=== PATIENT | female | born 1955 | race Caucasian/White ===

== ENCOUNTER 2016-07-09 17:07 | Emergency (ER) | payer OTHER ==
[~2016-07-09] VITALS: Ht 154.9 cm; Wt 93.0 kg
[2016-07-09 17:31] VITALS: TEMP 36.5
[2016-07-09] MEDS ORDERED: MECLIZINE HCL 25 MG TAB PO STA (17:37)
[2016-07-09] MEDS ORDERED: ONDANSETRON INJ 2 MG/ML 2 ML VIAL IV STA (17:37)
[2016-07-09 17:46] VITALS: O2SAT 97; Ht 154.9 cm; Wt 93.0 kg
--- NOTE | 2016-07-09 17:50 | EMERGENCY ROOM VISIT NOTE ---
History Report prepared by Lisa: Freddy Lyle Under the Supervision of: Dr. Miguel Wyman D.O. First contact with patient: 17:34 Chief Complaint: STROKE SYMPTOMS Stated Complaint: DIZZY, NAUSEA History of Present Illness The patient is a 61 year old female who presents to the Emergency Room with complaints of dizziness that began 3 hours ago. She states that she was standing when the dizziness began, so she sat down on her cough. After a while, she got up slowly and began to walk. She then began to lean/move to the right secondary to her dizziness. She felt very nauseated and also like she was going to fall over and could not speak to her correctly at that time. She currently has a headache. She denies any ringing in her ears. She has had incidences of vertigo in the past, but none like this. She has not seen her PCP for this issue. She was diagnosed with Leukemia 7 months ago, but she is not receiving any treatment. She is just having blood work done at this time. Source of History: patient Onset: 3 hours ago Position: other (global) Symptom Intensity: moderate Quality: other (dizziness) Timing: intermittent Associated Symptoms: + headache, + nausea Note: She denies any ringing in her ears. Review of Systems See HPI for pertinent positives & negatives. A total of 10 systems reviewed and were otherwise negative. Past Medical & Surgical Medical Problems: (1) No Known Active Medical Problems Family History Omitted secondary to age. Social History Smoking Status: Never Smoker Smokeless Tobacco Use: No Alcohol Use: occasionally Drug Use: none Marital Status: Housing Status: lives with significant other Occupation Status: retired Current/Historical Medications Scheduled Meclizine Hcl (Meclizine Hcl), 1 TAB PO TID Ondasetron Odt (Zofran Odt), 4 MG SL Q6H Allergies Coded Allergies: Tetraglycine (Unverified Adverse Reaction, Severe, TURN BLACK AND BLUE IN JOINT,LOOSE USE OF LEGS, 07/09/16) Physical Exam Vital Signs Date Time Temp Pulse Resp B/P Pulse Ox O2 Delivery O2 Flow Rate FiO2 07/09/16 19:08 87 18 130/69 98 Room Air 07/09/16 18:40 86 20 178/79 95 Room Air 82 148/88 90 132/73 07/09/16 18:17 87 18 119/74 97 Room Air 07/09/16 17:46 97 Room Air 07/09/16 17:39 96 Room Air 07/09/16 17:31 36.5 87 20 155/73 98 Room Air 07/09/16 17:31 84 Physical Exam GENERAL: Patient is awake, alert, and in no acute distress. Patient is uncomfortable and showing mild signs of anxiety. EYES: The conjunctivae are clear. The pupils are round and reactive. EARS, NOSE, MOUTH AND THROAT: The nose is without any evidence of any deformity. Mucous membranes are moist tongue is midline. TM's clear bilaterally. NECK: The neck is nontender and supple. RESPIRATORY: Normal respiratory effort is noted there is no evidence of wheezing rhonchi or rales CARDIOVASCULAR: Regular rate and rhythm noted there no murmurs rubs or gallops normal S1 normal S2 GASTROINTESTINAL: The abdomen is soft. Bowel sounds are present in all quadrants. Abdomen is nontender MUSCULOSKELETAL/EXTREMITIES: There is no evidence of gross deformity full range of motion is noted in the hips and shoulders SKIN: There is no obvious evidence of any rash. There are no petechiae, pallor or cyanosis noted. NEUROLOGIC: Patient is awake alert and oriented x3 strength is symmetric patellar reflexes are 2+ bilaterally. No nystagmus appreciated. Medical Decision & Procedures ER Provider Diagnostic Interpretation: Radiology results are stated below per my review and radiologist interpretation: CT OF THE HEAD WITHOUT CONTRAST CLINICAL HISTORY: Weakness. Dizzy. Nausea. COMPARISON STUDY: No previous studies for comparison. CT DOSE: 537.48 mGy.cm TECHNIQUE: Helical axial images of the head were obtained without IV contrast. Automated exposure control was utilized for the study. FINDINGS: No acute intracranial hemorrhage, midline shift or mass effect is present. Brain volume is normal. Ventricular system is normal. Basilar cisterns are patent. There are no extra-axial collections. Rojas-white differentiation is maintained. There are no findings to suggest acute dural sinus thrombosis or acute territorial infarct. Visualized portions of the sinuses and mastoid air cells are clear. There are no calvarial abnormalities. IMPRESSION: No acute intracranial findings. Electronically signed by: Ruben Delgado M.D. 07/09/2016 6:28 PM Dictated Date/Time: 07/09/2016 6:26 PM CHEST ONE VIEW PORTABLE CLINICAL HISTORY: Altered mental status. Weakness. Dizziness. Nausea. COMPARISON STUDY: No previous studies for comparison. FINDINGS: Lung volumes are normal. Lungs are clear. There is no pneumothorax or pleural effusion. Cardiac size is normal. Mediastinal contours are normal. There is no evidence of pulmonary edema. IMPRESSION: No acute cardiopulmonary findings. Electronically signed by: Ruben Delgado M.D. 07/09/2016 6:03 PM Dictated Date/Time: 07/09/2016 6:02 PM Laboratory Results 07/09/16 16:15 Red Blood Count 5.22, Mean Corpuscular Volume 86.4, Mean Corpuscular Hemoglobin 29.9, Mean Corpuscular Hemoglobin Concent 34.6, Mean Platelet Volume 11.1 07/09/16 16:15 Test 07/09/16 16:15 07/09/16 18:23 White Blood Count 16.98 K/uL (4.8-10.8) Red Blood Count 5.22 M/uL (4.2-5.4) Hemoglobin 15.6 g/dL (12.0-16.0) Hematocrit 45.1 % (37-47) Mean Corpuscular Volume 86.4 fL (80-100) Mean Corpuscular Hemoglobin 29.9 pg (25-34) Mean Corpuscular Hemoglobin Concent 34.6 g/dl (32-36) Platelet Count 264 K/uL (130-400) Mean Platelet Volume 11.1 fL (7.4-10.4) RDW Standard Deviation 48.6 fL (36.4-46.3) RDW Coefficient of Variation 15.2 % (11.5-14.5) Neutrophils % (Manual) 21.8 % Lymphocytes % (Manual) 73.7 % Monocytes % (Manual) 3.6 % Eosinophils % (Manual) 0.9 % Neutrophils # (Manual) 3.70 K/uL (1.4-6.5) Total Absolute Neutrophils 3.70 K/uL (1.4-6.5) Lymphocytes # (Manual) 12.51 K/uL (1.2-3.4) Total Absolute Lymphocytes 12.51 K/uL (1.2-3.4) Monocytes # (Manual) 0.61 K/uL (0.11-0.59) Eosinophils # (Manual) 0.15 K/uL (0-0.5) Smudge Cells PRESENT Prothrombin Time 10.7 SECONDS (9.0-12.0) Prothromb Time International Ratio 1.0 (0.9-1.1) Activated Partial Thromboplast Time 27.5 SECONDS (21.0-31.0) Partial Thromboplastin Ratio 1.1 Anion Gap 7.0 mmol/L (3-11) Est Creatinine Clear Calc Drug Dose 83.1 ml/min Estimated GFR () 103.3 Estimated GFR (Non- 89.1 BUN/Creatinine Ratio 28.5 (10-20) Calcium Level 9.2 mg/dl (8.5-10.1) Magnesium Level 2.6 mg/dl (1.8-2.4) Total Bilirubin 0.6 mg/dl (0.2-1) Direct Bilirubin 0.1 mg/dl (0-0.2) Aspartate Amino Transf (AST/SGOT) 24 U/L (15-37) Alanine Aminotransferase (ALT/SGPT) 22 U/L (12-78) Alkaline Phosphatase 80 U/L (45-117) Troponin I < 0.015 ng/ml (0-0.045) Total Protein 8.0 gm/dl (6.4-8.2) Albumin 4.3 gm/dl (3.4-5.0) Thyroid Stimulating Hormone (TSH) 1.050 uIu/ml (0.300-4.500) Chemistry Specimen Hemolysis Urine Color YELLOW Urine Appearance CLEAR (CLEAR) Urine pH 7.0 (4.5-7.5) Urine Specific [place] 1.006 (1.000-1.030) Urine Protein NEG (NEG) Urine Glucose (UA) NEG (NEG) Urine Ketones NEG (NEG) Urine Occult Blood NEG (NEG) Urine Nitrite NEG (NEG) Urine Bilirubin NEG (NEG) Urine Urobilinogen NEG (NEG) Urine Leukocyte Esterase TRACE (NEG) Urine WBC (Auto) 1-5 /hpf (0-5) Urine RBC (Auto) 0-4 /hpf (0-4) Urine Hyaline Casts (Auto) 1-5 /lpf (0-5) Urine Epithelial Cells (Auto) 10-20 /lpf (0-5) Urine Bacteria (Auto) NEG (NEG) Laboratory results per my review. Medications Administered Medications (Trade) Dose Ordered Sig/Manjinder Route Start Time Stop Time Status Last Admin Dose Admin Ondansetron HCl (Zofran Inj) 4 mg NOW STAT IV 07/09/16 17:37 4/15/17 17:38 DC 07/09/16 17:44 4 MG Meclizine HCl (Antivert Tab) 25 mg NOW STAT PO 07/09/16 17:37 07/09/16 17:38 DC 07/09/16 17:44 25 MG ECG Indication: nausea Rate (beats per minute): 81 Rhythm: normal sinus Findings: no ectopy, other (No acute ST segment abnormalities) Comparison ECG Date: no prior available ED Course 1733: The patient was evaluated in room C12. A complete history and physical examination were performed. 1736: Ordered Antivert Tab 25 mg PO, Zofran Inj 4 mg IV 1919: Upon reevaluation, the patient is resting. I discussed the results and treatment plan with her. She verbalized agreement of the treatment plan. She was discharged home. Medical Decision Differential diagnosis: Etiologies such as benign positional vertigo, dehydration, hypovolemia, anemia, tumor, infection, hypoglycemia, electrolyte abnormalities, cardiac sources, intracerebral event, toxicologic, neurologic, as well as others were entertained. Additional history is obtained from the patient's family member. Nursing notes reviewed. The patient is a 61-year-old female who presented to the emergency department for evaluation of vertigo. The patient did not have any focal neurologic deficit. She was treated with meclizine and Zofran in the emergency department. On subsequent reevaluation she was feeling much better. I discussed the patient' s laboratory and radiographic studies with her. Follow-up with her. She was encouraged to rest and avoid any strenuous activity. She was also encouraged to continue all medications as prescribed and call her family doctor in the morning. She was also encouraged to discuss the possibility that she may require further studies or possibly a referral to an ear nose and throat physician to further evaluate the cause of her symptoms. Otherwise she was encouraged to return the emergency apartment immediately if symptoms change worsen or the need arises. Impression Primary Impression: Vertigo Scribe Attestation The scribe's documentation has been prepared under my direction and personally reviewed by me in its entirety. I confirm that the note above accurately reflects all work, treatment, procedures, and medical decision making performed by me. Departure Information Dispostion Home / Self-Care Prescriptions Meclizine Hcl (MECLIZINE HCL) 25 Mg Tab 1 TAB PO TID for Dizziness or Vertigo for 30 Days, #30 TAB Prov: Miguel Wyman, DO 07/09/16 Ondasetron Odt (ZOFRAN ODT) 4 Mg Tab 4 MG SL Q6H for Nausea, #15 TAB Prov: Miguel Wyman, DO 07/09/16 Referrals No Doctor, Assigned Forms HOME CARE DOCUMENTATION FORM, IMPORTANT VISIT INFORMATION Patient Instructions ED Vertigo Unspecified, My [facility] Additional Instructions Rest and continue all medications as prescribed. Avoid any strenuous activity. Avoid driving until your symptoms are feeling better. Discussed the possibility with your family Dr. ni you may require further studies such as an MRI the brain or a referral to an ear nose and throat physician to further evaluate the cause of your vertigo. Return to the emergency department immediately symptoms change worsen or the need arises.
[2016-07-09 18:04] LABS: ALT/SGPT 22 U/L (12-78); AST/SGOT 24 U/L (15-37); BLOOD UREA NITROGEN 21 mg/dl (7-18); BUN/CREATININE RATIO 28.5 (10-20); CALCIUM 9.2 mg/dl (8.5-10.1); CARBON DIOXIDE 30 mmol/L (21-32); CHLORIDE 103 mmol/L (98-107); CREATININE 0.72 mg/dl (0.60-1.20); GLUCOSE 80 mg/dl (70-99); MAGNESIUM 2.6 mg/dl (1.8-2.4); PARTIAL THROMBOPLASTIN RATIO 1.1; PROTHROMBIN TIME (PATIENT) 10.7 SECONDS (9.0-12.0); SODIUM 140 mmol/L (136-145)
--- NOTE | 2016-07-09 18:05 | DIAGNOSTIC IMAGING REPORT ---
CHEST ONE VIEW PORTABLE CLINICAL HISTORY: Altered mental status. Weakness. Dizziness. Nausea. COMPARISON STUDY: No previous studies for comparison. FINDINGS: Lung volumes are normal. Lungs are clear. There is no pneumothorax or pleural effusion. Cardiac size is normal. Mediastinal contours are normal. There is no evidence of pulmonary edema. IMPRESSION: No acute cardiopulmonary findings. Electronically signed by: Ruben Delgado M.D. 07/09/2016 6:03 PM Dictated Date/Time: 07/09/2016 6:02 PM
[2016-07-09 18:10] LABS: ALKALINE PHOSPHATASE 80 U/L (45-117)
[2016-07-09 18:30] LABS: EOSINOPHIL % 0.9 %; HEMATOCRIT 45.1 % (37-47); LYMPH ABS # 12.51 K/uL (1.2-3.4); LYMPHOCYTE % 73.7 %; MEAN CELL VOLUME 86.4 fL (80-100); MEAN CORPUSCULAR HEMOGLOBIN 29.9 pg (25-34); MEAN CORPUSCULAR HGB CONC 34.6 g/dl (32-36); MEAN PLATELET VOLUME 11.1 fL (7.4-10.4); NEUTROPHILS % 21.8 %; PLATELET COUNT 264 K/uL (130-400); RED BLOOD COUNT 5.22 M/uL (4.2-5.4); SMUDGE CELLS PRESENT; WHITE BLOOD COUNT 16.98 K/uL (4.8-10.8)
--- NOTE | 2016-07-09 18:30 | DIAGNOSTIC IMAGING REPORT ---
CT OF THE HEAD WITHOUT CONTRAST CLINICAL HISTORY: Weakness. Dizzy. Nausea. COMPARISON STUDY: No previous studies for comparison. CT DOSE: 537.48 mGy.cm TECHNIQUE: Helical axial images of the head were obtained without IV contrast. Automated exposure control was utilized for the study. FINDINGS: No acute intracranial hemorrhage, midline shift or mass effect is present. Brain volume is normal. Ventricular system is normal. Basilar cisterns are patent. There are no extra-axial collections. Rojas-white differentiation is maintained. There are no findings to suggest acute dural sinus thrombosis or acute territorial infarct. Visualized portions of the sinuses and mastoid air cells are clear. There are no calvarial abnormalities. IMPRESSION: No acute intracranial findings. Electronically signed by: Ruben Delgado M.D. 07/09/2016 6:28 PM Dictated Date/Time: 07/09/2016 6:26 PM
[2016-07-09 18:31] LABS: COMPLETE YES
[2016-07-09 19:00] LABS: URINE APPEARANCE CLEAR (CLEAR); URINE BILIRUBIN NEG (NEG); URINE COLOR YELLOW; URINE NITRITE NEG (NEG); URINE SPECIFIC GRAVITY 1.006 (1.000-1.030); UROBILINOGEN NEG (NEG)
[2016-07-09 19:01] LABS: MANUAL MICROSCOPIC REQUIRED? NO; REVIEW REQ? NO
[2016-07-09 19:08] VITALS: BP 130/69; PULSE 87; O2SAT 98
[2016-07-09] MEDS ORDERED: ONDA4TAB10 SL (19:08)
[2016-07-09] MEDS ORDERED: MECL1TAB42 PO (19:08)
== END 2016-07-09 19:28 | disposition home or self-care (01) ==
LOC: EDBD 17:07 → C.EDC 17:08
DX: R42 Dizziness and giddiness (principal); R11.0 Nausea; R51 Headache; C95.90 Leukemia, unspecified not having achieved remission

== ENCOUNTER 2022-09-19 10:26 | Observation (INO) ==
--- NOTE | 2022-09-19 11:07 | Emergency Department Note ---
Impression & Plan Vertigo, Neck pain ED Provider Note CHIEF COMPLAINT: Vertigo HISTORY OF PRESENT ILLNESS: This 67-year-old female patient presents to the emergency department via ambulance for evaluation of nausea, vomiting, and dizziness which began this morning at about 8 AM. The patient states she was on the couch napping when she went to stand up. She notes at this time, the "world was spinning". The patient does have a history of similar symptoms in 2018, and she took 1 dose of the meclizine she has at home and there was no improvement in her symptoms. The symptoms seem to be worse when she moves and improves with closing her eyes and resting. The patient was not administered any medication by EMS while in route to the emergency department. Over the past few days, pt. eating/drinking normally. 2 weeks ago, pt. had a chest and sinus cold with cough. No medicines, symptoms resolved on their own. Pt. also c/o headache, primarily on the right side of the head. Pt. uncertain if she had the headache in 2018. States this episode is worse. Headache began after vomiting. Pt. c/o persistent nausea. No CP or SOB. She did not take her morning medications today. Patient denies any trauma or head injury. REVIEW OF SYSTEMS: A 10 system review of systems was performed with positives and pertinent negatives listed in the history of present illness. All other systems were reviewed and are negative. ALLERGIES: Tetracycline PHYSICAL EXAM: VITALS: Vitals are noted on the nurse's note and reviewed by myself. Vital signs stable. GENERAL: This is a 67-year-old female, in no acute distress, nondiaphoretic, well-developed well-nourished. SKIN: The skin was without rashes, erythema, edema, or bruising. There is no tenting of the skin. Capillary refill less than 2 seconds. HEAD: Normocephalic atraumatic. EARS: External auditory canals clear, tympanic membranes pearly rojas without erythema or effusion bilaterally. No hemotympanum. Negative hernandez sign EYES: Pupils equal round and reactive to light and accommodation. Conjunctivae without injection, sclerae without icterus. Horizontal nystagmus noted. NOSE: Patent, turbinates without inflammation or discharge. No sinus ten derness. MOUTH: Mucous membranes moist. Tonsils are not enlarged. Pharynx without erythema or exudate. Uvula midline. Airway patent. Tongue does not deviate. NECK: Supple without nuchal rigidity. No lymphadenopathy. No JVD. HEART: Regular rate and rhythm without murmurs gallops or rubs. LUNGS: Clear to auscultation bilaterally without wheezes, rales or rhonchi. No retractions or accessory muscle use. ABDOMEN: Positive bowel sounds x 4. Soft, nontender, without masses or organomegaly. Arango sign negative. No guarding or rebound tenderness. MUSCULOSKELETAL: No muscle atrophy, erythema, or edema noted. Full range of motion without joint tenderness in all extremities. No tenderness to palpation. Normal gait. Strength 5/5 throughout. NEURO: Patient was alert and oriented to person place and time. Normal sensation to light and sharp touch. Deep tendon reflexes 2+ throughout. No focal neurological deficits. EKG, per my interpretation: Normal sinus rhythm with a ventricular rate of [address] elevation or depression. No T wave inversion. when compared to EKG from 09/29/2019, ST no longer elevated in the inferior leads An order was placed for continuous annealer. The monitor showed a normal sinus rhythm at a ventricular rate of 94 bpm, per my interpretation. EMERGENCY DEPARTMENT COURSE: The patient was seen and evaluated as above. IV access obtained, labs drawn. Patient was medicated with IV fluids, acetaminophen, Zofran, p.o. meclizine. Labs reviewed. No anemia, thrombocytopenia. Patient does have a leukocytosis of almost 18,000. Renal, he patic function and electrolytes without significant abnormality. INR normal. Patient was reassessed. She is starting to feel better. She states she feels less dizzy and her headache is improving. Ambulatory trial attempted. The patient was unable to ambulate without experiencing significant vertigo. She was having difficulty ambulating without a maximal assist. Patient was medicated with IV Valium. I do feel that she would benefit from inpatient care given her persistent dizziness and inability to ambulate appropriately. The patient was agreeable. She will be admitted to the [facility] service. I discussed case with Dr. Munoz. Please see hospitalist dictation regarding ongoing management care of this patient. I did discuss case with my attending physician. Differential diagnosis includes benign positional vertigo, dehydration, hypovolemia, anemia, tumor, infection, hypoglycemia, electrolyte abnormalities, cardiac sources, intracerebral event, toxicologic, neurologic, as well as other pathologies. I attest that I have personally reviewed the patient's current medication list. Blood Pressure Screening: Patient was found to have a slightly elevated blood pressure due to circumstances. I do not believe that the patient requires hypertension monitoring. The chart was completed utilizing [employer] Speech voice recognition software. Grammatical errors, random word insertions, pronoun errors, and incomplete sentences are an occasional consequence of this system due to software limitations, ambient noise, and hardware issues. Any formal questions or con cerns about the content, text, or information contained within the body of this dictation should be directly addressed to the provider for clarification. Past Med/Surg History Medical History (Updated 09/19/22 @ 19:37 by Teri Pablo PA-C) Chronic back pain Diabetes mellitus, type 2 Diet controlled - glucose well controlled Fibromyalgia Stable- chronic pain- generalized pain- no current flares GERD (gastroesophageal reflux disease) Well controlled and stable Hyperlipidemia Hypertension Leukemia CLL- under observation- gets checked every 6 months at [facility] in [place] > currently in remission Sleep apnea no longer using cpap> too much congestion and kept waking patient up Surgical History History of colonoscopy History of esophagogastroduodenoscopy (EGD) History of lithotripsy History of partial hysterectomy Family History Grandmother (Paternal) Colon cancer Father Diabetes Sister Diabetes Brother Diabetes Social History Smoking Status: Never smoker Second Hand Exposure: No; Do You Dip or Chew Tobacco: No; Tobacco Cessation Education Requested by Patient: No Hx Alcohol Use: Yes Alcohol type: beer and wine Hx Substance Use: No Preferred Language: Romanian Communication Ability: Effective 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 Beliefs That Will Affect Care: Yazidi Yazidi Beliefs: Zoroastrian Current Living Situation: Significant Other Other Information That Helps Us Care for You: No Feels Safe at Home: Yes Safety Concerns: Feels Safe At This Time Assistive Devices: None Allergies Allergies Allergy/AdvReac Type Severity Reaction Status Date / Time tetracycline AdvReac BLACK & Verified 11/18/19 05:38 BLUE IN JOINTS, LOST USE OF LEGS Home Meds Home Medications Medication Instructions Recorded Confirmed budesonide-formoterol HFA 160 2 puff inhalation BID PRN 09/29/19 09/19/22 mcg-4.5 mcg/actuation aerosol Shortness Of Breath Or Wheezing inhaler (Symbicort) cholecalciferol (vitamin D3) 25 25 mcg PO QAM 09/29/19 09/19/22 mcg (1,000 unit) tablet (Vitamin D3) lisinopril 10 1 tab PO QAM 09/29/19 09/19/22 mg-hydrochlorothiazide 12.5 mg tablet (Zestoretic) omeprazole 20 mg capsule,delayed 20 mg PO QAM 09/29/19 09/19/22 release oxybutynin chloride 10 mg 10 mg PO QAM 09/29/19 09/19/22 tablet,extended release 24 hr piroxicam 10 mg capsule (Feldene) 10 mg PO PM 09/29/19 09/19/22 red yeast rice 600 mg tablet 600 mg PO QAM 09/29/19 09/19/22 turmeric 400 mg capsule 400 mg PO QAM 09/29/19 09/19/22 diclofenac sodium 50 mg 50 mg PO BID 09/19/22 09/19/22 tablet,delayed release duloxetine 30 mg capsule,delayed 30 mg PO DAILY 09/19/22 09/19/22 release duloxetine 60 mg capsule,delayed 60 mg PO DAILY 09/19/22 09/19/22 release pravastatin 80 mg tablet 80 mg PO DAILY 09/19/22 09/19/22 pregabalin 150 mg capsule 150 mg PO BID 09/19/22 09/19/22 triamcinolone acetonide 0.1 % 1 applic topical BID PRN Other 09/19/22 09/19/22 topical cream Previous Rx's Medication Instructions Recorded oxycodone-acetaminophen 5 mg-325 1 tab PO Q4H PRN pain #5 tabs 11/17/20 mg tablet (Percocet) Results & Data (ED) Vital Signs Vital Signs - 24 hr 09/19/22 10:45 09/19/22 11:26 09/19/22 11:44 Temperature 36.5 C Temperature Source Temporal Artery Scan Pulse Rate 101 H 94 H Pulse Rate [Apical] 90 Pulse Rhythm Pulse Strength [Apical] Respiratory Rate 18 22 Respiratory Effort / Characteristics Non-Labored Spontaneous Non-Labored Spontaneous Respiratory Depth Normal Normal Respiratory Pattern Blood Pressure 159/84 H Blood Pressure [Right Arm] 142/73 H Blood Pressure Mean 109 Blood Pressure Mean [Right Arm] 96 Blood Pressure Position Sitting Blood Pressure Position [Right Arm] Pulse Oximetry 95 90 Oxygen Delivery Method Room Air Room Air Sepsis Recent Fever Within 48 Hours No Sepsis New/Unexplained Change in Mental Status N/A Sepsis Action Taken by Nursing No Action Required 09/19/22 12:14 09/19/22 12:16 09/19/22 13:23 Temperature Temperature Source Pulse Rate 90 Pulse Rate [Apical] 87 73 Pulse Rhythm Regular Pulse Strength [Apical] Normal Respiratory Rate 18 18 21 Respiratory Effort / Characteristics Non-Labored Spontaneous Non-Labored Spontaneous Respiratory Depth Normal Normal Respiratory Pattern Regular Blood Pressure Blood Pressure [Right Arm] 153/79 H 152/78 H Blood Pressure Mean Blood Pressure Mean [Right Arm] 103 102 Blood Pressure Position Blood Pressure Position [Right Arm] Lying Lying Pulse Oximetry 95 94 95 Oxygen Delivery Method Room Air Room Air Room Air Sepsis Recent Fever Within 48 Hours Sepsis New/Unexplained Change in Mental Status Sepsis Action Taken by Nursing 09/19/22 14:47 09/19/22 15:35 Temperature Temperature Source Pulse Rate 84 Pulse Rate [Apical] 89 Pulse Rhythm Pulse Strength [Apical] Normal Respiratory Rate 22 Respiratory Effort / Characteristics Non-Labored Spontaneous Respiratory Depth Normal Respiratory Pattern Regular Blood Pressure Blood Pressure [Right Arm] 142/78 H Blood Pressure Mean Blood Pressure Mean [Right Arm] 99 Blood Pressure Position Blood Pressure Position [Right Arm] Lying Pulse Oximetry 95 Oxygen Delivery Method Room Air Sepsis Recent Fever Within 48 Hours Sepsis New/Unexplained Change in Mental Status Sepsis Action Taken by Nursing Laboratory Data 09/19/22 11:30 09/19/22 11:30 Lab Results 09/19/22 09/19/22 09/19/22 Range/Units 11:30 11:30 11:30 WBC 17.92 H (4.8-10.8) K/ul RBC 5.06 (4.20-5.40) M/uL Hgb 13.5 (12.0-16.0) g/dl Hct 41.4 (37.0-47.0) % MCV 81.8 (80.0-100.0) fL MCH 26.7 (25.0-34.0) pg MCHC 32.6 (32.0-36.0) g/dL RDW Std Deviation 49.5 H (36.4-46.3) fL RDW Coeff of Maynor 16.8 H (11.5-14.5) % Plt Count 189 (130-400) K/uL MPV 11.4 (9.4-12.4) fL Immature Gran % (Auto) 0.2 % Neut % (Auto) 27.9 % Lymph % (Auto) 68.9 % Porter % (Auto) 1.9 % Eos % (Auto) 0.8 % Baso % (Auto) 0.3 % Neut # (Auto) 5.00 (1.40-6.50) K/uL Lymph # (Auto) 12.34 H (1.2-3.4) K/uL Porter # (Auto) 0.34 (0.11-0.59) K/uL Eos # (Auto) 0.14 (0-0.50) K/uL Baso # (Auto) 0.06 (0-0.2) K/uL Immature Gran # (Auto) 0.04 (0.01-0.20) K/uL Smudge Cells Present PT 11.4 (9.0-12.0) Seconds INR 1.0 (0.9-1.1) APTT 22.3 (21.0-31.0) Seconds PTT Ratio 0.8 Sodium 137 (136-145) mmol/L Potassium 3.9 (3.5-5.1) mmol/L Chloride 104 (98-107) mmol/L Carbon Dioxide 25 (21-32) mmol/L Anion Gap 8 (3-11) BUN 16 (6-23) mg/dl Creatinine 0.67 (0.6-1.2) mg/dl Est Cr Clr Drug Dosing 80.7 ml/min Est GFR ( Amer) 103.9 ml/min Est GFR (Non-Af Amer) 89.7 ml/min BUN/Creatinine Ratio 23.9 H (10-20) Glucose 178 H (70-99(Fasting)) mg/dl Calcium 9.2 (8.6-10.3) mg/dl Magnesium 2.2 (1.7-2.4) mg/dl Total Bilirubin 0.8 (0.2-1.0) mg/dl AST 17 (13-39) U/L ALT 14 (7-52) U/L Alkaline Phosphatase 65 (34-104) U/L Troponin I High Sens 3.3 (0-14) pg/ml C-Reactive Protein 0.65 H (0-0.5) mg/dl Total Protein 7.3 (6.0-8.3) gm/dl Albumin 4.4 (3.4-5.0) gm/dl Globulin 2.9 (2.5-4.0) gm/dl Albumin/Globulin Ratio 1.5 (0.9-2) SARS-CoV-2, RNA, NAAT (NEGATIVE) 09/19/22 Range/Units 14:37 WBC (4.8-10.8) K/ul RBC (4.20-5.40) M/uL Hgb (12.0-16.0) g/dl Hct (37.0-47.0) % MCV (80.0-100.0) fL MCH (25.0-34.0) pg MCHC (32.0-36.0) g/dL RDW Std Deviation (36.4-46.3) fL RDW Coeff of Maynor (11.5-14.5) % Plt Count (130-400) K/uL MPV (9.4-12.4) fL Immature Gran % (Auto) % Neut % (Auto) % Lymph % (Auto) % Porter % (Auto) % Eos % (Auto) % Baso % (Auto) % Neut # (Auto) (1.40-6.50) K/uL Lymph # (Auto) (1.2-3.4) K/uL Porter # (Auto) (0.11-0.59) K/uL Eos # (Auto) (0-0.50) K/uL Baso # (Auto) (0-0.2) K/uL Immature Gran # (Auto) (0.01-0.20) K/uL Smudge Cells PT (9.0-12.0) Seconds INR (0.9-1.1) APTT (21.0-31.0) Seconds PTT Ratio Sodium (136-145) mmol/L Potassium (3.5-5.1) mmol/L Chloride (98-107) mmol/L Carbon Dioxide (21-32) mmol/L Anion Gap (3-11) BUN (6-23) mg/dl Creatinine (0.6-1.2) mg/dl Est Cr Clr Drug Dosing ml/min Est GFR ( Amer) ml/min Est GFR (Non-Af Amer) ml/min BUN/Creatinine Ratio (10-20) Glucose (70-99(Fasting)) mg/dl Calcium (8.6-10.3) mg/dl Magnesium (1.7-2.4) mg/dl Total Bilirubin (0.2-1.0) mg/dl AST (13-39) U/L ALT (7-52) U/L Alkaline Phosphatase (34-104) U/L Troponin I High Sens (0-14) pg/ml C-Reactive Protein (0-0.5) mg/dl Total Protein (6.0-8.3) gm/dl Albumin (3.4-5.0) gm/dl Globulin (2.5-4.0) gm/dl Albumin/Globulin Ratio (0.9-2) SARS-CoV-2, RNA, NAAT NEGATIVE (NEGATIVE) Administered Medications Discontinued Medications Diazepam (Diazepam 5 Mg/Ml Inj 10ml Vial) 2 mg IV NOW STA Stop: 09/19/22 14:34 Last Admin: 09/19/22 14:43 Dose: 2 mg Documented By: ZACHERY Sodium Chloride (Nss 1000ml) 1,000 mls @ 999 mls/hr IV .Q1H1M LEONILA Stop: 09/19/22 12:30 Last Infusion: 09/19/22 13:23 Dose: 0 mls/hr Documented By: Admin: 09/19/22 11:39 Dose: 999 mls/hr Documented By: ASMUEL Acetaminophen (Ofirmev) 1,000 mg in 100 mls @ 400 mls/hr IV NOW STA Stop: 09/19/22 11:59 Last Infusion: 09/19/22 12:34 Dose: 0 mls/hr Documented By: Admin: 09/19/22 12:09 Dose: 400 mls/hr Documented By: ZACHERY Ioversol (Optiray 320 100ml) 96 ml IV ONCE ONE Stop: 09/19/22 16:03 Last Admin: 09/19/22 16:03 Dose: 96 ml Documented By: COLIN Meclizine HCl (Meclizine Hcl 25 Mg Tab) 25 mg PO NOW STA Stop: 09/19/22 11:22 Last Admin: 09/19/22 11:39 Dose: 25 mg Documented By: SAMUEL Ondansetron HCl (Ondansetron Inj 2 Mg/Ml 2 Ml Vial) 4 mg IV NOW STA Stop: 09/19/22 11:22 Last Admin: 09/19/22 11:39 Dose: 4 mg Documented By: SAMUEL Ondansetron HCl (Ondansetron Inj 2 Mg/Ml 2 Ml Vial) Confirm Administered Dose 4 mg .ROUTE .STK-MED ONE Stop: 09/19/22 16:14 Last Admin: 09/19/22 16:16 Dose: 4 mg Documented By: GISSELLE Imaging Data Radiologist's Impression: Chest X-Ray 09/19/22 11:22 XR chest 1V portable CLINICAL HISTORY: Dizziness. COMPARISON STUDY: Chest radiograph September 29, 2019. FINDINGS: Patient is mildly rotated. Lung volumes are normal. No consolidation to suggest pneumonia. There is no pneumothorax or pleural effusion. Cardiac size is normal. Mediastinal contours are normal. There is no evidence for pulmonary edema. IMPRESSION: No acute cardiopulmonary findings. ACT 112: Negative or not required by law. Electronically signed by: Ruben Delgado M.D. 09/19/2022 12:[address] 09/19/22 11:45 CT SCAN OF THE BRAIN WITHOUT IV CONTRAST CLINICAL HISTORY: Headache. Vertigo. COMPARISON STUDY: CT of the brain dated 11/23/2017. TECHNIQUE: Unenhanced axial CT scan of the brain is performed from the vertex to the skull base. A dose lowering technique was utilized adhering to the principles of ALARA. CT DOSE: 580.53 mGy.cm FINDINGS: Brain parenchyma: There is age-related involutional change noting mild subcortical and periventricular microangiopathic disease. There is no hemor rhage, mass effect, or evidence of acute territorial ischemia by CT criteria. Rojas-white matter differentiation is preserved. No extra-axial fluid collection is seen. Ventricles, sulci, cisterns: Prominent secondary to involutional change. Intracranial vasculature: There is atherosclerotic calcification of the cavernous carotid arteries. Calvarium: Unremarkable. Sinuses and mastoids: The visualized paranasal sinuses are clear. The mastoid air cells are well pneumatized. Orbits: The bony orbits are grossly intact. IMPRESSION: There is no hemorrhage, mass effect, or evidence of acute territorial ischemia by CT criteria. ACT 112: Negative or not required by law. Electronically signed by: Brendan Mcpherson M.D. 09/19/2022 1:[address] 09/19/22 15:[address] WITH CONTRAST CLINICAL HISTORY: Spinal/paraspinal tenderness/swelling, hx CLL COMPARISON STUDY: CTA of the neck November 23, 2017. TECHNIQUE: Axial images of the cervical spine were obtained following intravenous injection of 96 cc of Optiray 320 IV. Sagittal and coronal reconstructions were viewed. Automated exposure control was utilized for the study. A dose lowering technique was utilized adhering to the principles of ALARA. FINDINGS: There is slight reversal of the cervical lordosis. This is similar to prior CTA. There is no cervical spine fracture. No suspicious lesions are identified by CT. Moderate multilevel disc space narrowing, osteophytosis and facet arthrosis within the cervical spine is noted. The central canal and neural foramen are suboptimally assessed given CT technique. No prevertebral edema. Visualized portions of the lung apices are unremarkable. No pathologically enlarged cervical lymph nodes are identified within visualized portions of the neck. This exam is mildly compromised by motion artifact. IMPRESSION: 1. No acute cervical spine fracture or subluxation. Exam mildly compromised by motion artifact. 2. Moderate multilevel degenerative disc disease and facet arthrosis within the cervical spine. Suboptimal evaluation of the central canal and neural foramen given CT technique. ACT 112: Negative or not required by law. Electronically signed by: Ruben Delgado M.D. 09/19/2022 4:26 PM Discharge Plan Visit Data Chief Complaint: Illness ED Provider: [facility] ED Midlevel Provider: Teri Pablo Discharge Problem: Vertigo, Neck pain Patient Disposition: Admitted As Inpatient Discharge Instructions Interventions: ED Discharge Assessment Last Done: 09/19/22 18:04
[2022-09-19] MEDS ORDERED: ONDANSETRON INJ 2 MG/ML 2 ML VIAL IV STA (11:21)
[2022-09-19] MEDS ORDERED: MECLIZINE HCL 25 MG TAB PO STA (11:21)
[2022-09-19] MEDS ORDERED: SODIUM CHLORIDE 0.9% 1000ML 1,000 ML IV SCH (11:30)
[2022-09-19] MEDS ORDERED: ACETAMINOPHEN 1,000 MG/100 ML VIAL IV STA (11:45)
[2022-09-19 12:04] LABS: Hematocrit (blood only) 41.4 % (37.0-47.0); Hemoglobin 13.5 g/dl (12.0-16.0); Mean Corpuscular Hemoglobin 26.7 pg (25.0-34.0); Mean Corpuscular Hgb Conc 32.6 g/dL (32.0-36.0); Mean Corpuscular Volume 81.8 fL (80.0-100.0); Mean Platelet Volume 11.4 fL (9.4-12.4); Platelet Count 189 K/uL (130-400); RDW Coefficient of Variation 16.8 % (11.5-14.5); RDW Standard Deviation 49.5 fL (36.4-46.3); Red Blood Count 5.06 M/uL (4.20-5.40); White Blood Count 17.92 K/ul (4.8-10.8)
--- NOTE | 2022-09-19 12:16 | XRay Report ---
XR chest 1V portable CLINICAL HISTORY: Dizziness. COMPARISON STUDY: Chest radiograph September 29, 2019. FINDINGS: Patient is mildly rotated. Lung volumes are normal. No consolidation to suggest pneumonia. There is no pneumothorax or pleural effusion. Cardiac size is normal. Mediastinal contours are normal . There is no evidence for pulmonary edema. IMPRESSION: No acute cardiopulmonary findings. ACT 112: Negative or not required by law. Electronically signed by: Ruben Delgado M.D. 09/19/2022 12:15 PM
[2022-09-19 12:20] LABS: Albumin Globulin Ratio 1.5 (0.9-2); Albumin Level 4.4 gm/dl (3.4-5.0); BUN Creatinine Ratio 23.9 (10-20); Bilirubin,Total 0.8 mg/dl (0.2-1.0); Calcium 9.2 mg/dl (8.6-10.3); Creatinine Clr Calc Pharmacy 80.7 ml/min; Est GFR (African American) 103.9 ml/min; Est GFR (Non-African American) 89.7 ml/min; Globulin 2.9 gm/dl (2.5-4.0); Potassium 3.9 mmol/L (3.5-5.1); Total Protein 7.3 gm/dl (6.0-8.3)
[2022-09-19 12:26] LABS: Troponin I High Sensitivity 3.3 pg/ml (0-14)
[2022-09-19 12:29] LABS: Partial Thromboplastin Ratio 0.8; Partial Thromboplastin Time 22.3 Seconds (21.0-31.0); Prothrombin Time 11.4 Seconds (9.0-12.0)
[2022-09-19 12:51] LABS: Basophils # (auto) 0.06 K/uL (0-0.2); Basophils % (auto) 0.3 %; Eosinophils # (auto) 0.14 K/uL (0-0.50); Eosinophils % (auto) 0.8 %; Immature Granulocytes # (auto) 0.04 K/uL (0.01-0.20); Immature Granulocytes % (auto) 0.2 %; Lymphocytes # (auto) 12.34 K/uL (1.2-3.4); Lymphocytes % (auto) 68.9 %; Monocytes # (auto) 0.34 K/uL (0.11-0.59); Monocytes % (auto) 1.9 %; Neutrophils % (auto) 27.9 %; Smudge Cells Present
--- NOTE | 2022-09-19 13:02 | CT Scan Report ---
CT SCAN OF THE BRAIN WITHOUT IV CONTRAST CLINICAL HISTORY: Headache. Vertigo. COMPARISON STUDY: CT of the brain dated 11/23/2017. TECHNIQUE: Unenhanced axial CT scan of the brain is performed from the vertex to the skull base. A do se lowering technique was utilized adhering to the principles of ALARA. CT DOSE: 580.53 mGy.cm FINDINGS: Brain parenchyma: There is age-related involutional change noting mild subcortical and periventricula r microangiopathic disease. There is no hemorrhage, mass effect, or evidence of acute territorial isc hemia by CT criteria. Rojas-white matter differentiation is preserved. No extra-axial fluid collection is seen. Ventricles, sulci, cisterns: Prominent secondary to involutional change. Intracranial vasculature: There is atherosclerotic calcification of the cavernous carotid arteries. Calvarium: Unremarkable. Sinuses and mastoids: The visualized paranasal sinuses are clear. The mastoid air cells are well pneu matized. Orbits: The bony orbits are grossly intact. IMPRESSION: There is no hemorrhage, mass effect, or evidence of acute territorial ischemia by CT melanie sims. ACT 112: Negative or not required by law. Electronically signed by: Brendan Mcpherson M.D. 09/19/2022 1:01 PM
--- NOTE | 2022-09-19 15:11 | History & Physical Report ---
Date of Service September 19, 2022 Assessment & Plan (1) Vertigo: Plan: Severe acute vertigo, suspect BPPV Patient with severe room spinning, vertigo, and horizontal nystagmus on Arnulfo- Hallpike testing. Magaly did not improve symptoms Suspect BPPV given past history of this, and severe symptoms with nystagmus on Hudson-Hallpike Will consult PT/OT to continue Magaly attempt, in the meantime we will continue symptomatic care with meclizine patient did receive diazepam in ER. Zofran as needed Has had a headache and nausea with her room spinning. Denies fever, chills, sweats. Denies weakness. No tinnitus or hearing loss. No other focal neurologic symptoms While she does have a headache and some photosensitivity, she does not have fever/leukocytosis or nuchal rigidity suggestive of meningitis. CRP/Pro-Lg pending - CThead with no acute findings. - CXR: No acute findings Severe neck pain, acute on chronic Patient with right-sided cervical posterior neck swelling, tenderness to palpation, and firmness with pain on both midline and right paraspinal palpation at ~C4-T1 Denies upper extremity weakness/numbness/tingling at time of visit, patient notes that she has had intermittent numbness and tingling down into her right hand in the past She is with a lymphocytic leukocytosis and history of CLL under monitoring without active treatment, no neutrophilic leukocytosis or fevers Has had chiropractic adjustments every Monday Given underlying CLL, spinal and paraspinal tenderness with history of intermittent numbness/tingling, and mild warmth at tender areas over the overlying cervical spine will obtain CT test C-spine with contrast. No neurologic symptoms and no leukocytosis, lower suspicion for discitis/abscess and patient is not able to tolerate an MRI at time of admission due to severe nausea History of CLL, chronic, stable Follows with oncology in [facility] -In remission, cell counts followed as outpatient. Denies prior history of chemo/radiation Has a absolute white cell count of 17.2 with no granulocytosis, lymphocytes at 12.34 No B-cell symptoms on admit CBC daily Fibromyalgia, chronic Continue home medications Does get chiropractic adjustments weekly [employer]. Neck eval as above Can continue piroxicam, will hold diclofenac while on this Hypertension, chronic Continue lisinoprilhydrochlorothiazide DVT prophylaxis: Heparin Diet: Clears, may advance as tolerated Disposition: Medical telemetry due to multiple Zofran doses and borderline prolonged QT. Magnesium level pending CODE STATUS: Full code (2) Diabetes mellitus, type 2: (3) GERD (gastroesophageal reflux disease): (4) Leukemia: (5) Hyperlipidemia: (6) Neck pain: History of Present Illness Primary Care Provider: Sudeep Read PA-C Valentina Landaverde is a 67-year-old female with a history of fibromyalgia, GERD, hyperlipidemia, hypertension, AYAAN, and CLL with a surgical history of hysterectomy with entire uterus removed and left ovary/right ovary remaining who presented to the emergency department by ambulance for nausea, vomiting, and dizziness which began at 8 AM. Patient reports that she was sleeping on the couch and stood up and immediately had severe room spinning/vertigo and was brought to the ER by EMS due to the severity of her symptoms. Had a similar episode several years ago which did not improve with meclizine. She has had cold-like symptoms 2 weeks ago, but which had resolved after several days. EKG on admission normal sinus rhythm, no ST segment changes, no territorial T wave changes, QTc 485, rate 99. On admission she has a leukocytosis of 17, does have a history of CLL last WBC measurements available from 2019 which were 22 at the time. Her current leukocytosis is remains lymphocyte predominant with a normal absolute neutrophil count. She has no sodium, potassium derangement and admitting creatinine is normal at 0.67. BUN/creatinine ratio slightly elevated at 23.9 suggesting volume contraction. BSG 178. No transaminitis. High-sensitivity troponin is normal.BP on ER assessment 152/78, pulse is improved to approximately 89, and is satting normally on room air. And is seen at the bedside. Woke up with vertigo this morning. Similar sx 5 years ago but this episode seems much worse in severity and has not responded to meclizine or Valium. She reports any head movement causes the room to spin and she immediately gets nauseous and has vomited several times, nonbloody/nonbilious. She is not able to function or perform activities at home due to her nausea and not being able to walk. She has not had any tinnitus. No hearing change. She reports she does have some right posterior neck tension and tenderness worsened in the last 1-2 days. She denies fever/chills. She did have a cold 2-3 weeks ago which completely resolved with no residual symptoms. She reports that she has had intermittent numbness and tingling in her right hand, none at present and no weakness. She reports she feels very nauseous and her eyes are little sensitive to light. She has no nuchal rigidity and notes that her neck feels a little better bring her chin to her chest. Has had an i ntermittent headache which seems worse when she is nauseous and vomits, none at time of bedside assessment Medical History: Reviewed Medications: Reviewed Surgical History: Reviewed Family history: Reviewed Allergies: Reviewed Social History: No tobacco, rare intermittent alcohol Code Status: Full code Allergies Allergy/AdvReac Type Severity Reaction Status Date / Time tetracycline AdvReac BLACK & Verified 11/18/19 05:38 BLUE IN JOINTS, LOST USE OF LEGS Home Medications Medication Instructions Recorded Confirmed Type budesonide-formoterol HFA 160 2 puff inhalation BID PRN 09/29/19 09/19/22 History mcg-4.5 mcg/actuation aerosol Shortness Of Breath Or Wheezing inhaler (Symbicort) cholecalciferol (vitamin D3) 25 25 mcg PO QAM 09/29/19 09/19/22 History mcg (1,000 unit) tablet (Vitamin D3) lisinopril 10 1 tab PO QAM 09/29/19 09/19/22 History mg-hydrochlorothiazide 12.5 mg tablet (Zestoretic) omeprazole 20 mg capsule,delayed 20 mg PO QAM 09/29/19 09/19/22 History release oxybutynin chloride 10 mg 10 mg PO QAM 09/29/19 09/19/22 History tablet,extended release 24 hr piroxicam 10 mg capsule (Feldene) 10 mg PO PM 09/29/19 09/19/22 History red yeast rice 600 mg tablet 600 mg PO QAM 09/29/19 09/19/22 History turmeric 400 mg capsule 400 mg PO QAM 09/29/19 09/19/22 History oxycodone-acetaminophen 5 mg-325 1 tab PO Q4H PRN pain #5 tabs 11/18/19 09/19/22 Rx mg tablet (Percocet) diclofenac sodium 50 mg 50 mg PO BID 09/19/22 09/19/22 History tablet,delayed release duloxetine 30 mg capsule,delayed 30 mg PO DAILY 09/19/22 09/19/22 History release duloxetine 60 mg capsule,delayed 60 mg PO DAILY 09/19/22 09/19/22 History release pravastatin 80 mg tablet 80 mg PO DAILY 09/19/22 09/19/22 History pregabalin 150 mg capsule 150 mg PO BID 09/19/22 09/19/22 History triamcinolone acetonide 0.1 % 1 applic topical BID PRN Other 09/19/22 09/19/22 History topical cream Past Med/Surg History Medical History (Updated 09/19/22 @ 15:52 by Matteo Munoz MD) Chronic back pain Diabetes mellitus, type 2 Diet controlled - glucose well controlled Fibromyalgia Stable- chronic pain- generalized pain- no current flares GERD (gastroesophageal reflux disease) Well controlled and stable Hyperlipidemia Hypertension Leukemia CLL- under observation- gets checked every 6 months at [facility] in [place] > currently in remission Sleep apnea no longer using cpap> too much congestion and kept waking patient up Surgical History History of colonoscopy History of esophagogastroduodenoscopy (EGD) History of lithotripsy History of partial hysterectomy Family History Grandmother (Paternal) Colon cancer Father Diabetes Sister Diabetes Brother Diabetes Social History Smoking Status: Never smoker Second Hand Exposure: Yes ([employer] SMOKES); Do You Dip or Chew Tobacco: No; Hx Alcohol Use: Yes Alcohol type: beer and wine Hx Substance Use: No Preferred Language: Faroese Communication Ability: Effective Patient Partner Required: No Beliefs That Will Affect Care: None Current Living Situation: Significant Other Feels Safe at Home: Yes Assistive Devices: Glasses Review of Systems Review of Systems: All systems reviewed & are unremarkable except as noted in Subjective Physical Exam Physical Exam: General: Appears ill but nontoxic, nauseous. No acute distress HEENT: Pupils equal and reactive to light. Patient reports she is very nauseous and looking at the light makes her feel more nauseous. Vision and hearing is grossly intact Pulm: CTAB A&P. -wheezes, -rales, -rhonchi. Symmetrical chest rise. No increased work of breathing. No respiratory distress. Cardiac: RRR, -mrg. Radial pulses intact and symmetrical. Abdominal: Nontender, nondistended, soft. BS present. Spine: Spinal and right paraspinal tenderness to palpation at C4-T1, increased muscular tone and slight overlying warmth. No nuchal rigidity. Extremities: Sensation to soft touch intact in hands and feet without asymmetry, burrer marker axle strength and ankle dorsiflexion/plantarflexion 5/5. Neuro: HEENT as noted. Arnulfo-Hallpike left produces horizontal and slight rotary nystagmus and increased nausea. Magaly did not resolve symptoms. Results & Data Results & Data Vital Signs (Past 12 Hours) Vital Signs Temp Pulse Pulse Resp BP BP Pulse Ox 09/19/22 14:47 89 22 142/78 H 95 09/19/22 13:23 73 21 152/78 H 95 09/19/22 12:16 90 18 94 09/19/22 12:14 87 18 153/79 H 95 09/19/22 11:44 90 22 142/73 H 90 09/19/22 11:26 94 H 09/19/22 10:45 36.5 C 101 H 18 159/84 H 95 O2 Del Method 09/19/22 14:47 Room Air 09/19/22 13:23 Room Air 09/19/22 12:16 Room Air 09/19/22 12:14 Room Air 09/19/22 11:44 Room Air 09/19/22 11:26 09/19/22 10:45 Room Air PG Care Time/CCT Total # of Minutes Spent Total Time Spent with Patient: Total time spent is greater than 50% in coordination of care (as documented) at patient's floor/unit and/or counseling patient: Coding Level of Care Code 10682 INT INP/OBS CARE 2/55MIN Diagnoses Vertigo R42 Diabetes mellitus, type 2 E11.9 GERD (gastroesophageal reflux disease) K21.9 Leukemia C95.90 Hyperlipidemia E78.5 Neck pain M54.2
[2022-09-19] MEDS ORDERED: OPTIRAY 320 100ml IV ONE (16:02)
[2022-09-19] MEDS ORDERED: ONDANSETRON INJ 2 MG/ML 2 ML VIAL ONE (16:13)
--- NOTE | 2022-09-19 16:28 | CT Scan Report ---
CERVICAL SPINE CT WITH CONTRAST CLINICAL HISTORY: Spinal/paraspinal tenderness/swelling, hx CLL COMPARISON STUDY: CTA of the neck November 23, 2017. TECHNIQUE: Axial images of the cervical spine were obtained following intravenous injection of 96 cc of Optiray 320 IV. Sagittal and coronal reconstructions were viewed. Automated exposure control was u tilized for the study. A dose lowering technique was utilized adhering to the principles of ALARA. FINDINGS: There is slight reversal of the cervical lordosis. This is similar to prior CTA. There is n o cervical spine fracture. No suspicious lesions are identified by CT. Moderate multilevel disc space narrowing, osteophytosis and facet arthrosis within the cervical spine is noted. The central canal a nd neural foramen are suboptimally assessed given CT technique. No prevertebral edema. Visualized por tions of the lung apices are unremarkable. No pathologically enlarged cervical lymph nodes are identi fied within visualized portions of the neck. This exam is mildly compromised by motion artifact. IMPRESSION: 1. No acute cervical spine fracture or subluxation. Exam mildly compromised by motion artifact. 2. Moderate multilevel degenerative disc disease and facet arthrosis within the cervical spine. Subop timal evaluation of the central canal and neural foramen given CT technique. ACT 112: Negative or not required by law. Electronically signed by: Ruben Delgado M.D. 09/19/2022 4:26 PM
[2022-09-19 17:10] LABS: C Reactive Protein 0.65 mg/dl (0-0.5); Magnesium 2.2 mg/dl (1.7-2.4)
[2022-09-19] MEDS ORDERED: POLYETHYLENE (MIRALAX) 17 GM PACK PO PRN (18:20)
[2022-09-19] MEDS ORDERED: MECLIZINE HCL 25 MG TAB PO PRN ×2 (18:20)
[2022-09-19] MEDS ORDERED: ACETAMINOPHEN 325 MG TAB PO PRN (18:20)
[2022-09-19] MEDS ORDERED: TRIAMCINOLONE ACET 0.1% CR 15 GM TUBE TOP PRN (18:20)
[2022-09-19] MEDS ORDERED: FLUTICASONE/VILANTEROL 200/25MCG 14 PUFFS/INHALER INH PRN (18:58)
[2022-09-19] MEDS: ONDANSETRON INJ 2 MG/ML 2 ML VIAL IV PRN (21:16)
[2022-09-19] MEDS: NSS + 20MEQ KCL 20 MEQ/1,000 ML BAG IV SCH (21:18)
[2022-09-19] MEDS: PREGABALIN 150 MG CAP PO SCH (21:23)
[2022-09-19] MEDS: PIROXICAM 10 MG CAP PO SCH (22:03)
[2022-09-19 22:13] LABS: Appearance Urine Clear (Clear); Bilirubin Urine Negative (Negative); Blood Urine Negative (Negative); Color Urine Yellow; Glucose Urine UA Negative (Negative); Ketones Urine Trace (Negative); Leukocyte Esterase Urine Negative (Negative); Nitrite Urine Negative (Negative); Protein Urine Negative (Negative); Specific Gravity Urine 1.039 (1.000-1.030); Urobilinogen Urine Negative (Negative); pH Urine 6.5 (4.5-7.5)
[2022-09-20] MEDS: NSS + 20MEQ KCL 20 MEQ/1,000 ML BAG IV SCH ×2 (03:58→11:30)
[2022-09-20 07:53] LABS: Hematocrit (blood only) 36.9 % (37.0-47.0); Hemoglobin 11.7 g/dl (12.0-16.0); Mean Corpuscular Hemoglobin 26.7 pg (25.0-34.0); Mean Corpuscular Hgb Conc 31.7 g/dL (32.0-36.0); Mean Corpuscular Volume 84.2 fL (80.0-100.0); Mean Platelet Volume 11.6 fL (9.4-12.4); Nucleated RBC # (auto) 0.02 K/uL (0-0.12); Nucleated RBC % (auto) 0.1 %; Platelet Count 179 K/uL (130-400); RDW Coefficient of Variation 16.6 % (11.5-14.5); RDW Standard Deviation 50.5 fL (36.4-46.3); Red Blood Count 4.38 M/uL (4.20-5.40); White Blood Count 15.47 K/ul (4.8-10.8)
[2022-09-20 08:05] LABS: BUN Creatinine Ratio 21.1 (10-20); Calcium 8.1 mg/dl (8.6-10.3); Creatinine Clr Calc Pharmacy 97.6 ml/min; Est GFR (African American) 109.6 ml/min; Est GFR (Non-African American) 94.6 ml/min; Potassium 3.7 mmol/L (3.5-5.1)
[2022-09-20] MEDS: DULoxetine HCL 60 MG CAP PO SCH (08:16)
[2022-09-20] MEDS: HEPARIN SOD 5,000 UNIT/0.5 ML VIAL SQ SCH ×3 (08:16→20:14)
[2022-09-20] MEDS: DULoxetine HCL 30 MG CAP PO SCH (08:16)
[2022-09-20] MEDS: PANTOprazole 40 MG TAB PO SCH (08:17)
[2022-09-20] MEDS: LISINOPRIL/HCTZ 10/12.5MG TAB PO SCH (08:17)
[2022-09-20] MEDS: PRAVASTATIN SOD 40 MG TAB PO SCH (08:18)
[2022-09-20] MEDS: OXYBUTYNIN CHLORIDE XL 5 MG TABCR PO SCH (08:18)
[2022-09-20] MEDS: PREGABALIN 150 MG CAP PO SCH ×2 (08:21→20:10)
[2022-09-20 08:48] LABS: Basophils # (auto) 0.08 K/uL (0-0.2); Basophils % (auto) 0.5 %; Eosinophils # (auto) 0.24 K/uL (0-0.50); Eosinophils % (auto) 1.6 %; Immature Granulocytes # (auto) 0.02 K/uL (0.01-0.20); Immature Granulocytes % (auto) 0.1 %; Lymphocytes # (auto) 11.77 K/uL (1.2-3.4); Lymphocytes % (auto) 76.1 %; Monocytes # (auto) 0.61 K/uL (0.11-0.59); Monocytes % (auto) 3.9 %; Neutrophils # (auto) 2.75 K/uL (1.40-6.50); Neutrophils % (auto) 17.8 %; Smudge Cells Present
--- NOTE | 2022-09-20 08:52 | Electrocardiogram Report ---
Test Reason : Blood Pressure : / mmHG Vent. Rate : 099 BPM Atrial Rate : 099 BPM P-R Int : 178 ms QRS Dur : 090 ms QT Int : 378 ms P-R-T Axes : 005 006 033 degrees QTc Int : 485 ms Normal sinus rhythm Possible Left atrial enlargement Borderline ECG When compared with ECG of 29-SEP-2019 19:26, Questionable change in QRS axis ST no longer elevated in Inferior leads Confirmed by Hernesto Carbajal ([id number]) on 09/20/2022 8:51:59 AM Referred By: Confirmed By:Hernesto Carbajal
[2022-09-20] MEDS ORDERED: NON-FORMULARY MEDICATION (Red Yeast Rice 600 mg Tablet) PO SCH (09:00)
[2022-09-20] MEDS ORDERED: LORazepam 1 MG TAB PO STA ×2 (09:00→11:26)
[2022-09-20] MEDS ORDERED: Nursing to Pharmacy Communication SCH (11:30)
--- NOTE | 2022-09-20 12:04 | Hospitalist Progress Note ---
Date of Service September 20, 2022 Assessment & Plan (1) Vertigo: Plan: Probable benign positional vertigo. She had this in the past. However, midbrain CVA needs to be ruled out. Admission head CT scan negative. Brain MRI pending. We will schedule meclizine dosing along with several doses of IV Solu- Medrol. Hopefully this will resolve quickly Severe neck pain, acute on chronic Patient with right-sided cervical posterior neck swelling, tenderness to palpation, and firmness with pain on both midline and right paraspinal palpation at ~C4-T1 Denies upper extremity weakness/numbness/tingling at time of visit, patient notes that she has had intermittent numbness and tingling down into her right hand in the past She is with a lymphocytic leukocytosis and history of CLL under monitoring without active treatment, no neutrophilic leukocytosis or fevers Has had chiropractic adjustments every Monday Given underlying CLL, spinal and paraspinal tenderness with history of intermittent numbness/tingling, and mild warmth at tender areas over the overlyi ng cervical spine will obtain CT test C-spine with contrast. No neurologic symptoms and no leukocytosis, lower suspicion for discitis/abscess and patient is not able to tolerate an MRI at time of admission due to severe nausea History of CLL, chronic, stable Follows with oncology in [facility] -In remission, cell counts followed as outpatient. Denies prior history of chemo/radiation Has a absolute white cell count of 17.2 with no granulocytosis, lymphocytes at 12.34 No B-cell symptoms on admit CBC daily Fibromyalgia, chronic Continue home medications Does get chiropractic adjustments weekly [employer]. Neck eval as above Can continue piroxicam, will hold diclofenac while on this Hypertension, chronic Continue lisinoprilhydrochlorothiazide DVT prophylaxis: Heparin Diet: Clears, may advance as tolerated Disposition: Medical telemetry due to multiple Zofran doses and borderline prolonged QT. Magnesium level pending CODE STATUS: Full code (2) Diabetes mellitus, type 2: Plan: ADA diet. Sliding scale coverage as needed. Continue current medication management (3) GERD (gastroesophageal reflux disease): Plan: PPI therapy (4) Leukemia: Plan: History of chronic lymphocytic leukemia. No intervention needed at this time (5) Hyperlipidemia: Plan: Stable. Continue statin therapy (6) Neck pain: Plan: She states she fell at home which aggravated her chronic neck pain. Symptomatic care. Pain control measures Plan Hopeful discharge to home soon. Possibly tomorrow, September 21 Admission and Anticipated Discharge Date Admission Date: September 19, 2022 Subjective Alert and oriented. She still has vertigo symptoms. Meclizine will be scheduled and intravenous steroids administered. Brain MRI scan pending to rule out midbrain CVA which can cause similar symptoms. She states she fell at home which aggravated her chronic neck discomfort. Admission head CT scan negative for bleed. Diet has been advanced and IV fluids taper down. Review of Systems Review of Systems: Constitutional-no fever or chills ENT-no blurred vision, no double vision, no epistaxis, no sore throat Respiratory-no cough, no wheezing, no shortness of breath Cardiac-no palpitations, no chest pain, no syncope GI-no nausea, vomiting, diarrhea, melena, hematochezia -no urinary retention, no urinary incontinence, no dysuria, no hematuria Musculoskeletal-no joint pain, no muscle tenderness Skin-no bruising, no rashes, no pruritus Neuro-vertigo symptoms. No focal weakness Psych-no depression, no anxiety Physical Exam Physical Exam: General-alert and oriented x3, no fevers, no chills HEENT-head atraumatic and normocephalic, pupils equal and reactive to light, extraocular muscles intact. Horizontal nystagmus noted with head turning Neck-no lymphadenopathy or thyromegaly, trachea midline Chest-clear to auscultation percussion. No rales wheezing or rhonchi Cardiac-regular rate and rhythm, normal S1 and S2 Abdomen-normal bowel sounds, nontender, no hepatosplenomegaly Extremities-no cyanosis, clubbing, or edema Neuro-cranial nerves II through XII intact, motor and sensory function within normal limits, strength symmetrical , no focal deficits. Horizontal nystagmus noted with head turning Psych-normal affect, normal mood Results & Data Results & Data Vital Signs (Past 12 Hours) Vital Signs Temp Pulse Pulse Resp BP BP Pulse Ox 09/20/22 10:58 36.6 C 73 16 125/79 92 09/20/22 07:50 56 L 09/20/22 07:46 36.7 C 64 18 112/62 92 09/20/22 02:44 36.6 C 67 16 133/84 93 O2 Del Method 09/20/22 10:58 Room Air 09/20/22 07:50 09/20/22 07:46 Room Air 09/20/22 02:44 Room Air Laboratory Results 09/20/22 07:08 09/20/22 07:08 PG Care Time/CCT Total # of Minutes Spent Total Time Spent with Patient: Total time spent is greater than 50% in coordination of care (as documented) at patient's floor/unit and/or counseling patient: Coding Level of Care Code 94165 SUB INP/OBS CARE 3/50MIN Diagnoses Vertigo R42 Diabetes mellitus, type 2 E11.9 GERD (gastroesophageal reflux disease) K21.9 Leukemia C95.90 Hyperlipidemia E78.5 Neck pain M54.2
[2022-09-20] MEDS: methylPREDNISolone 40 MG in SYRINGE 0 ML IV SCH ×2 (13:10→17:21)
--- NOTE | 2022-09-20 13:11 | Magnetic Resonance Report ---
MRI OF THE BRAIN WITHOUT IV CONTRAST CLINICAL HISTORY: Vertigo COMPARISON STUDY: CT of the brain dated 09/19/2022. TECHNIQUE: MRI of the brain was performed utilizing various T1 and T2-weighted sequences in the axial , sagittal, and coronal planes. IV contrast was not administered for this examination. FINDINGS: Brain parenchyma: There is age-related mucosal change noting minimal microcatheter pathic disease. Th ere is no hemorrhage or mass effect. There is no restricted diffusion to suggest acute ischemia. Rojas -white matter differentiation is preserved. No extra-axial fluid collection is seen. The cerebellar t onsils are normal in configuration. Ventricles, sulci, and cisterns: Prominent secondary to involutional change. Pituitary and sella: Unremarkable. Intracranial vasculature: Normal flow voids are maintained at the skull base. Orbits: The bony orbits are grossly intact. Orbital contents are normal in appearance. Sinuses and mastoids: There is trace mucosal thickening in the left maxillary antrum. The remaining p aranasal sinuses and the mastoid air cells are clear. Calvarium: Unremarkable. Cervical cord: Partially visualized cervical spinal cord is normal in morphology and signal intensity . IMPRESSION: No acute intracranial abnormality. ACT 112: Negative or not required by law. Electronically signed by: Brendan Mcpherson M.D. 09/20/2022 1:09 PM
[2022-09-20] MEDS: MECLIZINE 12.5 MG TAB PO SCH (20:13)
[2022-09-20] MEDS: PIROXICAM 10 MG CAP PO SCH (20:14)
[2022-09-21] MEDS: methylPREDNISolone 40 MG in SYRINGE 0 ML IV SCH ×5 (00:40→23:21)
[2022-09-21] MEDS: NSS + 20MEQ KCL 20 MEQ/1,000 ML BAG IV SCH (03:57)
[2022-09-21] MEDS: oxyCODONE/ACETAMINOPHEN 5mg/325mg TAB PO PRN ×2 (04:00→09:07)
[2022-09-21] MEDS: HEPARIN SOD 5,000 UNIT/0.5 ML VIAL SQ SCH ×3 (05:39→21:44)
[2022-09-21 08:17] LABS: Hematocrit (blood only) 40.2 % (37.0-47.0); Mean Corpuscular Hemoglobin 26.5 pg (25.0-34.0); Mean Corpuscular Hgb Conc 32.3 g/dL (32.0-36.0); Mean Platelet Volume 11.3 fL (9.4-12.4); Platelet Count 241 K/uL (130-400); RDW Coefficient of Variation 16.6 % (11.5-14.5); RDW Standard Deviation 49.2 fL (36.4-46.3); White Blood Count 26.79 K/ul (4.8-10.8)
[2022-09-21 08:37] LABS: Calcium 8.8 mg/dl (8.6-10.3); Creatinine Clr Calc Pharmacy 85.6 ml/min; Est GFR (Non-African American) 90.6 ml/min; Potassium 4.3 mmol/L (3.5-5.1)
[2022-09-21 08:58] LABS: Basophils # (auto) 0.03 K/uL (0-0.2); Basophils % (auto) 0.1 %; Immature Granulocytes # (auto) 0.19 K/uL (0.01-0.20); Immature Granulocytes % (auto) 0.7 %; Lymphocytes # (auto) 18.98 K/uL (1.2-3.4); Lymphocytes % (auto) 70.8 %; Monocytes # (auto) 0.19 K/uL (0.11-0.59); Monocytes % (auto) 0.7 %; Neutrophils % (auto) 27.7 %; Smudge Cells Present
[2022-09-21] MEDS: PRAVASTATIN SOD 40 MG TAB PO SCH (09:02)
[2022-09-21] MEDS: OXYBUTYNIN CHLORIDE XL 5 MG TABCR PO SCH (09:02)
[2022-09-21] MEDS: PANTOprazole 40 MG TAB PO SCH (09:02)
[2022-09-21] MEDS: MECLIZINE 12.5 MG TAB PO SCH ×3 (09:04→21:45)
[2022-09-21] MEDS: LISINOPRIL/HCTZ 10/12.5MG TAB PO SCH (09:04)
[2022-09-21] MEDS: DULoxetine HCL 30 MG CAP PO SCH (09:04)
[2022-09-21] MEDS: DULoxetine HCL 60 MG CAP PO SCH (09:04)
[2022-09-21] MEDS: PREGABALIN 150 MG CAP PO SCH ×2 (09:07→21:48)
[2022-09-21] MEDS: ONDANSETRON INJ 2 MG/ML 2 ML VIAL IV PRN (09:08)
[2022-09-21] MEDS: METOCLOPRAMIDE HCL INJ 5 MG/ML 2 ML VIAL IV SCH ×3 (12:09→23:22)
--- NOTE | 2022-09-21 14:16 | Hospitalist Progress Note ---
Date of Service September 21, 2022 Assessment & Plan (1) Vertigo: Plan: Suspect benign positional vertigo. She had this in the past. Brain MRI negative for CVA. Admission head CT scan also negative. Continue scheduled meclizine dosing along with Solu-Medrol. IV Reglan ordered for nausea. (2) Diabetes mellitus, type 2: Plan: ADA diet. Sliding scale coverage as needed. Continue current medication management (3) GERD (gastroesophageal reflux disease): Plan: PPI therapy (4) Leukemia: Plan: History of chronic lymphocytic leukemia. No intervention needed at this time (5) Hyperlipidemia: Plan: Stable. Continue statin therapy (6) Neck pain: Plan: She states she fell at home which aggravated her chronic neck pain. Symptomatic care. Pain control measures Plan Hopeful discharge to home soon. Possibly tomorrow, September 22 Admission and Anticipated Discharge Date Admission Date: September 21, 2022 Subjective Persistent nausea will prevent her from being discharged today. Scheduled IV Reglan ordered. We will continue IV fluids for now. Continue oral meclizine and parenteral steroids. Supportive care Review of Systems Review of Systems: Constitutional-no fever or chills ENT-no blurred vision, no double vision, no epistaxis, no sore throat Respiratory-no cough, no wheezing, no shortness of breath Cardiac-no palpitations, no chest pain, no syncope GI-no nausea, vomiting, diarrhea, melena, hematochezia -no urinary retention, no urinary incontinence, no dysuria, no hematuria Musculoskeletal-no joint pain, no muscle tenderness Skin-no bruising, no rashes, no pruritus Neuro-vertigo symptoms. No focal weakness Psych-no depression, no anxiety Physical Exam Physical Exam: General-alert and oriented x3, no fevers, no chills HEENT-head atraumatic and normocephalic, pupils equal and reactive to light, extraocular muscles intact. Horizontal nystagmus noted with head turning Neck-no lymphadenopathy or thyromegaly, trachea midline Chest-clear to auscultation percussion. No rales wheezing or rhonchi Cardiac-regular rate and rhythm, normal S1 and S2 Abdomen-normal bowel sounds, nontender, no hepatosplenomegaly Extremities-no cyanosis, clubbing, or edema Neuro-cranial nerves II through XII intact, motor and sensory function within normal limits, strength symmetrical , no focal deficits. Horizontal nystagmus noted with head turning Psych-normal affect, normal mood Results & Data Results & Data Vital Signs (Past 12 Hours) Vital Signs Temp Pulse Pulse Pulse Resp BP BP 09/21/22 10:56 36.7 C 98 H 16 124/74 09/21/22 07:30 36.9 C 96 H 18 179/82 H 09/21/22 07:34 82 09/21/22 03:38 36.9 C 89 18 149/80 H Pulse Ox O2 Del Method 09/21/22 10:56 93 Room Air 09/21/22 07:30 91 Room Air 09/21/22 07:34 09/21/22 03:38 90 Room Air Laboratory Results 09/21/22 07:40 09/21/22 07:40 PG Care Time/CCT Total # of Minutes Spent Total Time Spent with Patient: Total time spent is greater than 50% in coordination of care (as documented) at patient's floor/unit and/or counseling patient: Coding Level of Care Code 95280 SUB INP/OBS CARE 2/35MIN Diagnoses Vertigo R42 Diabetes mellitus, type 2 E11.9 GERD (gastroesophageal reflux disease) K21.9 Leukemia C95.90 Hyperlipidemia E78.5 Neck pain M54.2
[2022-09-21] MEDS: SODIUM CHLORIDE 0.9% 1000ML 1,000 ML IV SCH (14:30)
[2022-09-21] MEDS: PIROXICAM 10 MG CAP PO SCH (21:43)
[2022-09-22] MEDS: SODIUM CHLORIDE 0.9% 1000ML 1,000 ML IV SCH (03:23)
[2022-09-22] MEDS: oxyCODONE/ACETAMINOPHEN 5mg/325mg TAB PO PRN (05:22)
[2022-09-22] MEDS: METOCLOPRAMIDE HCL INJ 5 MG/ML 2 ML VIAL IV SCH ×2 (05:22→12:22)
[2022-09-22] MEDS: methylPREDNISolone 40 MG in SYRINGE 0 ML IV SCH ×2 (05:23→12:22)
[2022-09-22] MEDS: HEPARIN SOD 5,000 UNIT/0.5 ML VIAL SQ SCH (05:24)
[2022-09-22 06:28] LABS: Hematocrit (blood only) 37.2 % (37.0-47.0); Hemoglobin 12.2 g/dl (12.0-16.0); Mean Corpuscular Hemoglobin 26.8 pg (25.0-34.0); Mean Corpuscular Hgb Conc 32.8 g/dL (32.0-36.0); Mean Corpuscular Volume 81.6 fL (80.0-100.0); Mean Platelet Volume 11.6 fL (9.4-12.4); Platelet Count 248 K/uL (130-400); RDW Coefficient of Variation 16.7 % (11.5-14.5); RDW Standard Deviation 49.4 fL (36.4-46.3); Red Blood Count 4.56 M/uL (4.20-5.40); White Blood Count 33.42 K/ul (4.8-10.8)
[2022-09-22 07:00] LABS: BUN Creatinine Ratio 32.3 (10-20); Calcium 8.6 mg/dl (8.6-10.3); Est GFR (Non-African American) 90.6 ml/min; Potassium 4.1 mmol/L (3.5-5.1)
[2022-09-22 07:27] LABS: Basophils # (auto) 0.06 K/uL (0-0.2); Basophils % (auto) 0.2 %; Immature Granulocytes # (auto) 0.14 K/uL (0.01-0.20); Immature Granulocytes % (auto) 0.4 %; Monocytes # (auto) 0.57 K/uL (0.11-0.59); Monocytes % (auto) 1.7 %; Neutrophils # (auto) 11.25 K/uL (1.40-6.50); Neutrophils % (auto) 33.7 %; Smudge Cells Present; Toxic Vacuolation 1+
[2022-09-22] MEDS: OXYBUTYNIN CHLORIDE XL 5 MG TABCR PO SCH (08:35)
[2022-09-22] MEDS: MECLIZINE 12.5 MG TAB PO SCH (08:36)
[2022-09-22] MEDS: DULoxetine HCL 30 MG CAP PO SCH (08:36)
[2022-09-22] MEDS: PANTOprazole 40 MG TAB PO SCH (08:36)
[2022-09-22] MEDS: PRAVASTATIN SOD 40 MG TAB PO SCH (08:37)
[2022-09-22] MEDS: LISINOPRIL/HCTZ 10/12.5MG TAB PO SCH (08:37)
[2022-09-22] MEDS: DULoxetine HCL 60 MG CAP PO SCH (08:37)
[2022-09-22] MEDS: PREGABALIN 150 MG CAP PO SCH (08:45)
--- NOTE | 2022-09-22 11:28 | Discharge Summary ---
Date of Service September 22, 2022 Admission HPI Per Admitting Provider Valentina Landaverde is a 67-year-old female with a history of fibromyalgia, GERD, hyperlipidemia, hypertension, AYAAN, and CLL with a surgical history of hysterectomy with entire uterus removed and left ovary/right ovary remaining who presented to the emergency department by ambulance for nausea, vomiting, and dizziness which began at 8 AM. Patient reports that she was sleeping on the couch and stood up and immediately had severe room spinning/vertigo and was brought to the ER by EMS due to the severity of her symptoms. Had a similar episode several years ago which did not improve with meclizine. She has had cold-like symptoms 2 weeks ago, but which had resolved after several days. EKG on admission normal sinus rhythm, no ST segment changes, no territorial T wave changes, QTc 485, rate 99. On admission she has a leukocytosis of 17, does have a history of CLL last WBC measurements available from 2019 which were 22 at the time. Her current leukocytosis is remains lymphocyte predominant with a normal absolute neutrophil count. She has no sodium, potassium derangement and admitting creatinine is normal at 0.67. BUN/creatinine ratio slightly elevated at 23.9 suggesting volume contraction. BSG 178. No transaminitis. High-sensitivity troponin is normal.BP on ER assessment 152/78, pulse is improved to approximately 89, and is satting normally on room air. And is seen at the bedside. Woke up with vertigo this morning. Similar sx 5 years ago but this episode seems much worse in severity and has not responded to meclizine or Valium. She reports any head movement causes the room to spin and she immediately gets nauseous and has vomited several times, nonbloody/nonbilious. She is not able to function or perform activities at home due to her nausea and not being able to walk. She has not had any tinnitus. No hearing change. She reports she does have some right posterior neck tension and tenderness worsened in the last 1-2 days. She denies fever/chills. She did have a cold 2-3 weeks ago which completely resolved with no residual symptoms. She reports that she has had intermittent numbness and tingling in her right hand, none at present and no weakness. She reports she feels very nauseous and her eyes are little sensitive to light. She has no nuchal rigidity and notes that her neck feels a little better bring her chin to her chest. Has had an intermittent headache which seems worse when she is nauseous and vomits, none at time of bedside assessment Medical History: Reviewed Medications: Reviewed Surgical History: Reviewed Family history: Reviewed Allergies: Reviewed Social History: No tobacco, rare intermittent alcohol Code Status: Full code Principal Diagnosis BPV, nausea Discharge Exam General-alert and oriented x3, no fevers, no chills HEENT-head atraumatic and normocephalic, pupils equal and reactive to light, extraocular muscles intact. Horizontal nystagmus noted with head turning Neck-no lymphadenopathy or thyromegaly, trachea midline Chest-clear to auscultation percussion. No rales wheezing or rhonchi Cardiac-regular rate and rhythm, normal S1 and S2 Abdomen-normal bowel sounds, nontender, no hepatosplenomegaly Extremities-no cyanosis, clubbing, or edema Neuro-cranial nerves II through XII intact, motor and sensory function within normal limits, strength symmetrical , no focal deficits. Horizontal nystagmus noted with head turning Psych-normal affect, normal mood Discharge Data Allergies Allergy/AdvReac Type Severity Reaction Status Date / Time tetracycline AdvReac BLACK & Verified 11/18/19 05:38 BLUE IN JOINTS, LOST USE OF LEGS Consultations 09/19/22 15:10 ED Decision to Admit Stat Ordered Studies 09/19/22 11:45 CT head/brain wo con Stat 09/19/22 15:36 CT cervical spine w con Urgent 09/20/22 08:20 MRI Brain [MR brain wo con] Urgent Hospital Course (1) Vertigo: Suspect benign positional vertigo. She had this in the past. Brain MRI negative for CVA. Admission head CT scan also negative. Treated while hospitalized with scheduled meclizine dosing along with Solu-Medrol. IV Reglan resolved the nausea. (2) Diabetes mellitus, type 2: ADA diet. Sliding scale coverage as needed. Continue current medication management (3) GERD (gastroesophageal reflux disease): PPI therapy (4) Leukemia: History of chronic lymphocytic leukemia. No intervention needed at this time (5) Hyperlipidemia: Stable. Continue statin therapy (6) Neck pain: She states she fell at home which aggravated her chronic neck pain. Symptomatic care. Pain control measures Plan home today, 09/22, on meclizine and prednisone taper Total Time Total Time Spent Total Time Spent (In Minutes): 40 minutes Discharge Plan Discharge Items Patient Disposition: Home - Self-Care Reason For Visit: VERTIGO, NECK PAIN Discharge Diagnosis: BPV, nausea Activity: Resume your previous activity Non-emergency contact: Primary Care Provider Call non-emergency contact if: your symptoms worsen Follow-up/Referrals: Sudeep Read PA-C [Primary Care Provider] - (PLEASE CALL YOUR PRIMARY CARE PROVIDER TO SCHEDULE A DISCHARGE FOLLOW-UP APPOINTMENT WITHIN 7-10 DAYS) Diet: Regular and Heart Healthy Addtl Attending Provider Instructions: take meclizine three times a day until vertigo is completely gone. Take prednisone in a tapering dose fashion until gone Pending Studies at Discharge: No Stand-Alone Forms: My [employer], Smoking Cessation Medications and DC Order Prescriptions: New meclizine 12.5 mg Tablet 12.5 mg PO TID Qty: 30 0RF prednisone 10 mg tablet See Rx Instructions .ROUTE .COMPLEX Qty: 12 0RF Rx Instructions: 10 mg orally three times a day for 2 days, then 10mg twice a day for 2 days, then 10 mg daily for 2 days then stop Continued oxybutynin chloride 10 mg tablet extended release 24hr 10 mg PO QAM omeprazole 20 mg capsule,delayed release(DR/EC) 20 mg PO QAM piroxicam [Feldene] 10 mg capsule 10 mg PO PM lisinopril-hydrochlorothiazide [Zestoretic] 10-12.5 mg tablet 1 tab PO QAM cholecalciferol (vitamin D3) [Vitamin D3] 25 mcg (1,000 unit) Tablet 25 mcg PO QAM budesonide-formoterol [Symbicort] 160-4.5 mcg/actuation Hfa Aerosol Inhaler 2 puff INHALATION BID PRN (Reason: Shortness Of Breath Or Wheezing) red yeast rice 600 mg Tablet 600 mg PO QAM turmeric 400 mg Capsule 400 mg PO QAM oxycodone-acetaminophen [Percocet] 5-325 mg Tablet 1 tab PO Q4H PRN (Reason: pain) Qty: 5 0RF triamcinolone acetonide 0.1 % cream 1 applic TOPICAL BID PRN (Reason: Other) pravastatin 80 mg tablet 80 mg PO DAILY diclofenac sodium 50 mg tablet,delayed release (DR/EC) 50 mg PO BID duloxetine 30 mg capsule,delayed release(DR/EC) 30 mg PO DAILY duloxetine 60 mg capsule,delayed release(DR/EC) 60 mg PO DAILY Rx Instructions: with 30 mg pregabalin 150 mg capsule 150 mg PO BID Discharge Orders: Discharge Order (Routine); Ordered 09/22/22 Ordered By: Lukasz Finney Admission Data Admit Date/Time: 09/21/22 11:13 Attending Provider: Lukasz Finney Admit Provider: Matteo Munoz Primary Care Provider: Sudeep Read Other Providers: Matteo Munoz Coding Level of Care Code 95552 INP/OBS DISCH >30 MIN Diagnoses Vertigo R42 Diabetes mellitus, type 2 E11.9 GERD (gastroesophageal reflux disease) K21.9 Leukemia C95.90 Hyperlipidemia E78.5 Neck pain M54.2
== END 2022-09-22 14:12 | disposition home health service (06) | DRG 149 ==
LOC: ED 10:26 → 2W 10:26 → SUATTDRO 15:47 → 2W 18:04 → 3N 09-22 05:06

== ENCOUNTER 2024-08-03 16:15 | Inpatient (IN) ==
--- OUTSIDE RECORDS SUMMARY | 2024-08-03 16:19 | External Medical Summary | Summary of Care ---
Author Name Unknown Organization [facility] Address [address] [facility] [address] Phone [phone] Care Team Providers Care Director State Pharmacy Name Role Phone Sudeep Read PA-C Primary Care Provider Reason for Visit * Reason Onset Date Comments Appointment 04/29/2024 Return in about 6 months (around 10/27/2024) for Clinic Visit. Check-out Comments: Follow up [address] Martínez Encounter Details Date Type Department Care Team (Late st Contact Info) Description 04/29/2024 Telephone Rheumatology [address] [place] [phone] Romario Arce CRNP [address] [facility] [place] [address] Appointment (Return in about 6 months (trinh... Allergies Active Allergy Reactions Criticality Noted Date Comments Tetracycline High 09/20/2012 Other reaction(s): Swelling Joint swelling with skin discoloration "Black and Blue on the skin around the joints" pt states. documented as of this encounter (statuses as of 05/02/2024) Medications VITAMIN D-3 1000 UNITS PO CAPS 1 per day Active TUMERIC CAPS Active Probiotic Advanced Oral Capsule Take by mouth. Active Tylenol PM Extra Strength 500-25 MG Oral Tablet (diphenhydrAMINE- APAP (sleep)) Take 1 Tablet by mouth daily as needed for Sleep. 1 Active Pravastatin Sodium 80 MG Oral Tablet Take 1 Tablet by mouth in the morning. Active Omeprazole 20 MG Oral Capsule Delayed Release (PriLOSEC)Indicat ions:GERD (gastroesophageal reflux disease) TAKE 1 CAPSULEBY MOUTH EVERY MORNING 90 Capsule 1 2 Active Oxybutynin Chloride ER 15 MG Oral Tablet Extended Release 24 Hour (Ditropan XL)Indications:Fe male stress incontinence TAKE 1 TABLET BY MOUTH DAILY. DO NOT CUT, CRUSH OR CHEW 90 Tablet 3 2 Active DULoxetine HCl 30 MG Oral Capsule Delayed Release Particles (Cymbalta)Indicat ions:Recurrent major depressive disorder, remission status unspecified (HCC) TAKE ONE CAPSULE BY MOUTH DAILY WITH THE 60MG FOR A TOTAL OF 90MG DAILY 90 Capsule 1 2 Active DULoxetine HCl 60 MG Oral Capsule Delayed Release Particles (Cymbalta)Indicat ions:Recurrent major depressive disorder, remission status unspecified (HCC) TAKE 1 CAPSULE BY MOUTH EVERY DAY 90 Capsule 2 Active Lisinopril-hydroC HLOROthiazide 10-12.5 MG Oral TabletIndications :Essential hypertension TAKE 1 TABLET BY MOUTH EVERY DAY 90 Tablet 2 Active Diclofenac Sodium 50 MG Oral Tablet Delayed Release (Voltaren) TAKE 1 TABLET BY MOUTH IN THE MORNING AND BEFORE BEDTIME 60 Tablet 5 4 Active Pregabalin 225 MG Oral Capsule (Lyrica) TAKE 1 CAPSULE BY MOUTH IN THE MORNING AND BEFORE BEDTIME 60 Capsule 5 5 Active documented as of this encounter (statuses as of 05/02/2024) Active Problems Problem Noted Date Diagnosed Date H/O uterine prolapse 03/08/2021 Anxiety 12/01/2020 Recurrent major depressive disorder 12/01/2020 Generalized osteoarthritis 09/19/2013 Fibromyalgia Overview (09/20/2012): 14-15 yrs ago Hypertension GERD (gastroesophageal reflux disease) Hyperlipidemia AYAAN (obstructive sleep apnea) Overview (08/25/2015): CPAP 10-16 cwp 10/29/14 PSG - AHI 25.3 AHP Depression Personal history of CLL (chronic lymphocytic austin kemia) Overview (04/01/2019): B cell type documented as of this encounter (statuses as of 05/02/2024) Immunizations Name Administration Dates Next Due COVID-19 mRNA, LNP-s, No Pre serve, 2-Dose Series (Moderna) 03/08/2021,08/19/2020,07/21/2020 Pneumococcal Conjugate Vacc, 13 Valent (Prevnar) 02/15/2016 Pneumococcal Polysaccharide PPV23 (Pneumovax) 12/22/2008 Seasonal Influenza, Quadriva lent Hd (Fluzone Hd) 12/14/2022 TDAP, Age 7 and older, IM (Adacel) 10/23/2008 documented as of this encounter Social History Tobacco Use Types Packs/Day Years Used Date Smoking Tobacco: Never Smokeless Tobacco: Never Alcohol Use Standard Drinks/Week Comments No 0 (1 standard drink = 0.6 oz pur e alcohol) Comments No Sex and Gender Information Value Date Recorded Sex Assigned at Not on file Legal Sex Female 5:27 AM EST Gender Identity Not on file Sexual Orientation Not on file documented as of this encounter Miscellaneous Notes * Telephone Encounter - Cassia Feliz OSA - 05/02/2024 2:41 PM EST Scheduled. * Telephone Encounter - Lucas Bills OSA - 04/29/2024 3:20 PM EST FYI- Unable to schedule pt for her 6 month follow up appt with Romario Arce. She has [employer] Medicare HMO. We are not participating with that. I did place a referral to be reviewed. Pt aware that if her insurance company denies the referral, patient cannot be schedule here. documented in this encounter Plan of Treatment Upcoming Encounters Date Type Department Care Team (Late st Contact Info) Description 11/04/2024 2:00 PM EDT Office Visit Rheumatology [address] [place] [phone] Romario Arce CRNP [address] [facility], [place] [address] Scheduled Procedures Name Priority Associated Diagnoses Date/Ti me COLONOSCOPY FLEXIBLE PROXIMAL DIAGNOSTIC Recall History of colon polyps Health Maintenance Due Date Last Done Comments DXA Scan 1953 Depression Monitoring 1965 Albumin/Creatinine Ratio 06/09/1971 Hepatitis C Screening 06/09/1971 Cologuard 1998 Fecal Occult Blood Test 1998 Sigmoidoscopy 1998 DTap/Tdap Vaccines (2 - Td or Tdap) 10/23/2018 10/23/2008 GFR 09/17/2023 09/16/2022, 01/25, 12/01/2020, Additional history exists Mammogram 09/17/2023 09/16/2022, 07/2020, 05/31/2019 COVID-19 Vaccine ( season) 2023 03/08/2021, 08/19/2020, 07/21/2020 Influenza Vaccine (FLU shot) (#1) 2023 12/14/2022 Colonoscopy 10/24/2024 10/25/2019, 10/25/2019 Colorectal Cancer Screening 10/24/2024 Lipid Panel 12/01/2025 12/01/2020 RETIRED - COLONOSCOPY-EVERY 5 YRS AGES 18-100 Discontinued 10/25/2019, 10/25/2019 Pneumococcal Vaccine: 50+ Years Completed 09/16/2022, 05/07/2019, 02/15/2016, Additional history exists HPV (Gardasil) Vaccine Aged Out No lo nger eligible based on patient's age to complete this topic Hepatitis B Vaccine Aged Out No longe r eligible based on patient's age to complete this topic MENINGOCOCCAL (MENACTRA/MENVEO) Aged Out No longer eligible based on patient's age to complete this topic documented as of this encounter Medical Devices Not on filedocumented as of this encounter Care Teams Director State Pharmacy Relationship Specialty Start Date End Date Sudeep Read PA-C [address] [place], [place] [address] [phone] PCP - General Physician Bilingual Instructor 02/24/23 documented as of this encounter
--- OUTSIDE RECORDS SUMMARY | 2024-08-03 16:19 | External Medical Summary | Summary of Care ---
Author Name Unknown Organization [facility] Address [address] [facility] [address] Phone [phone] Care Team Providers Care Natural Resources Specialist Name Role Phone Sudeep Read PA-C Primary Care Provider Reason for Visit * Reason Onset Date Comments Medication Refill 02/16/2024 Encounter Details Date Type Department Care Team (Late st Contact Info) Description 02/16/2024 Refill Rheumatology [id number] [place] [address] Louis Martínez MD [facility] [place] [address] Allergies Active Allergy Reactions Criticality Noted Date Comments Tetracycline High 09/20/2012 Other reaction(s): Swelling Joint swelling with skin discoloration "Black and Blue on the skin around the joints" pt states. documented as of this encounter (statuses as of 02/16/2024) Medications VITAMIN D-3 1000 UNITS PO CAPS 1 per day Active TUMERIC CAPS Active Probiotic Advanced Oral Capsule Take by mouth. 1 Active Tylenol PM Extra Strength 500-25 MG Oral Tablet (diphenhydrAMINE -APAP (sleep)) Take 1 Tablet by mouth daily as needed for Sleep. 1 Active Pravastatin Sodium 80 MG Oral Tablet Take 1 Tablet by mouth in the morning. Active Omeprazole 20 MG Oral Capsule Delayed Release (PriLOSEC)Indica tions:GERD (gastroesophagea l reflux disease) TAKE 1 CAPSULEBY MOUTH EVERY MORNING 90 Capsule 1 2 Active Oxybutynin Chloride ER 15 MG Oral Tablet Extended Release 24 Hour (Ditropan XL)Indications:F emale stress incontinence TAKE 1 TABLET BY MOUTH DAILY. DO NOT CUT, CRUSH OR CHEW 90 Tablet 3 2 Active DULoxetine HCl 30 MG Oral Capsule Delayed Release Particles (Cymbalta)Indica tions:Recurrent major depressive disorder, remission status unspecified (HCC) TAKE ONE CAPSULE BY MOUTH DAILY WITH THE 60MG FOR A TOTAL OF 90MG DAILY 90 Capsule 1 2 Active DULoxetine HCl 60 MG Oral Capsule Delayed Release Particles (Cymbalta)Indica tions:Recurrent major depressive disorder, remission status unspecified (HCC) TAKE 1 CAPSULE BY MOUTH EVERY DAY 90 Capsule 2 Active Lisinopril-hydro CHLOROthiazide 10-12.5 MG Oral TabletIndication s:Essential hypertension TAKE 1 TABLET BY MOUTH EVERY DAY 90 Tablet 2 Active Diclofenac Sodium 50 MG Oral Tablet Delayed Release (Voltaren) TAKE 1 TABLET BY MOUTH IN THE MORNING AND BEFORE BEDTIME 60 Tablet 5 4 Active Pregabalin 225 MG Oral Capsule (Lyrica) Take 1 Capsule by mouth in the morning and 1 Capsule before bedtime. 60 Capsule 1 4 Active Pregabalin 225 MG Oral Capsule (Lyrica) TAKE 1 CAPSULE BY MOUTH IN THE MORNING AND BEFORE BEDTIME 60 Capsule 5 4 02/16/20 24 Discontin ued(Refil l) documented as of this encounter (statuses as of 02/16/2024) Active Problems Problem Noted Date Diagnosed Date [...] as of this encounter (statuses as of 02/16/2024) Immunizations Name Administration Dates Next Due COVID-19 [...] drink = 0.6 oz pur e alcohol) Utilities Answer Date Recorded Do you have trouble paying y our heating, water, or electric bill? (Adult - for ages 18 years and over) Not on file 09/12/2023 Is your family able to pay t he heat, water, or electric bill? (Household - for ages 0-17 years) Not on file 09/12/2023 Does your family have access to good internet? (Household - for ages 0-17 years) Not on file 09/12/2023 Social Connections Answer Date Recorded How often do you feel lonely or isolated from those around you? (Adult - for ages 18 years and over) Not on file 09/12/2023 Comments No Sex and Gender Information Value Date Recorded Sex Assigned at Not on file Legal Sex Female 5:27 AM EST Gender Identity Not on file Sexual Orientation Not on file documented as of this encounter Miscellaneous Notes * Telephone Encounter - Radha Martins LPN - 02/16/2024 3:15 PM EST Pt notified RX called to Pharmacy * Telephone Encounter - Levon Phelps CRNP - 02/16/2024 3:13 PM ESTSigned Prescriptions: Disp Refills Pregabalin 225 MG Oral Capsule (Lyrica) 60 Cap*1 Sig: Take 1 Capsule by mouth in the morning and 1 Capsule before bedtime.Authorizing Provider: LEVON PHELPS--- * Telephone Encounter - Levon Phelps CRNP - 02/16/2024 3:12 PM EST Refilled at this time. * Telephone Encounter - Ac Jama OSA - 02/16/2024 2:51 PM EST [place] - Patient Related Communication Reason for Call: Refill of unknown: Pregabalin 225 MG Oral Capsule (Lyrica) [facility]/pharmacy #[id number] Valentina is in so much pain and requesting as soon as possible. And asking for return call when this issent. Thank you AYAAN Martin documented in this encounter Plan of Treatment Upcoming Encounters Date Type Department Care Team (Late st Contact Info) Description 03/01/2024 10:40 AM EST Office Visit Rheumatology [address] [place] [phone] Louis Martínez MD [facility] [place], [place] [address] Scheduled Procedures Name Priority Associated Diagnoses Date/Ti [...] AGES 18-100 Discontinued 10/25/2019, 10/25/2019 Pneumococcal Vaccine: 65+ Years Completed 09/16/2022, 05/07/2019, 02/15/2016, Additional history [...] filedocumented as of this encounter Care Teams Natural Resources Specialist Relationship Specialty Start Date End Date Sudeep Read PA-C [address] [place] [address] [phone] PCP - General Physician Purchasing Associate 02/24/23 documented as of this encounter
--- OUTSIDE RECORDS SUMMARY | 2024-08-03 16:19 | External Medical Summary | Summary of Care ---
Author Name Unknown Organization [facility] Address [address] [facility] [place] [address] Phone [phone] Care Team Providers Care Director Of Intercollegiate Athletics Name Role Phone Sudeep Read PA-C Primary Care Provider Reason for Referral * Evaluate & Treat - Unlimited Visits (Within 10 days (routine)) - Pending Review Specialty Diagnoses / Procedures Referred By Rob santacruz Referred To Contact Pain Management / Pain Medicine Diagnoses Degeneration of intervertebral disc of lumbar region with lower extremity pain Generalized osteoarthritis Romario Arce CRNP [address] [place] [address] Phone: tel: fax: Referral ID Status Reason Start Date Expiration Date Visits Requested Visits Authorized [id number] Pending Review Specialty Services Required 04/29/[phone] Question Answer Referral Priority Within 10 days (routine) Where should this appointment be scheduled? [facility] Reason for referral? Interventional Pain Management - (Injection) What condition is the patient being referred for? Back Axial - L3-L4 What is the preferred location to have this test performed? [facility] Comments Patient Name: Valentina Landaverde Date of : 1955 Department Phone Number: Bones/joints: There is a scoliosis convex to the right measuring 20 degrees in the mid to lower lumbar spine. Diffuse osteopenia is seen. There is intervertebral disc space narrowing throughout the lumbar spine. Vacuum phenomenon is seen at L3-L4 and L4-L5. Facet joint hypertrophy is seen throughout the lumbar spine. MRI or CT (if unable to have a MRI) is recommended if any of the following apply: 1. Patient has neck or back pain with radiation to extremities. A previous MRI will be accepted if symptoms unchanged since prior MRI. 2. Spinal surgery since last MRI. If yes, order a MRI with and without contrast. 3. Hx or ongoing cancer treatment. Patient will need spine x-ray (Ap/Lat) for axial neck or back pain if not done previously. Fax No. [facility] [phone] or contact lockstitch front edge tape sewer [phone] Fax No. [facility] [phone] or contact lockstitch front edge tape sewer [phone] Fax No. [facility] [phone] or contact lockstitch front edge tape sewer [phone] Reason for Visit * Reason Comments Rheum Follow Up Recheck fibromyalgia , multiple joint pain Encounter Details Date Type Department Care Team (Latest Contact Info) Description 04/29/2024 10:30 AM EST Office Visit Rheumatology [address] [place] [id number] Romario Arce CRNP [address] [place] [address] [place] [address] Degeneration of intervertebral disc of lumbar region with lower extremity pain*; Fibromyalgia; Generalized osteoarthritis; Encounter for long-term (current) use of medications Allergies Active Allergy Reactions Criticality Noted Date Comments Tetracycline High 09/20/2012 Other reaction(s): Swelling Joint swelling with skin discoloration "Black and Blue on the skin around the joints" pt states. documented as of this encounter (statuses as of 04/30/2024) Medications VITAMIN D-3 1000 UNITS PO CAPS [...] as of this encounter (statuses as of 04/30/2024) Active Problems Problem Noted Date Diagnosed Date [...] as of this encounter (statuses as of 04/30/2024) Immunizations Name Administration Dates Next Due COVID-19 [...] Date Smoking Tobacco: Never Smokeless Tobacco: Never Tobacco Cessation:Counseling Given: Not Answered Alcohol Use Standard Drinks/Week Comments No 0 (1 standard drink = 0.6 oz pur e alcohol) Comments No Sex and Gender Information Value Date Recorded Sex Assigned at Not on file Legal Sex Female 5:27 AM EST Gender Identity Not on file Sexual Orientation Not on file documented as of this encounter Last Filed Vital Signs Vital Sign Reading Time Taken Comments Blood Pressure - - Pulse - - Temperature 36.2 °C (97.1 °F) 04/29/2024 10:[address] Respiratory Rate - - Oxygen Saturation - - Inhaled Oxygen Concentration - - Weight 91.2 kg (201 lb) 04/29/2024 10:46 AM EST Height - - Body Mass Index 39.57 03/08/2021 1:43 PM EST documented in this encounter Progress Notes * Romario Arce CRNP - 04/29/2024 10:39 AM EST Subjective: Patient seen today for further follow up evaluation of osteoarthritis, fibromyalgia. Last OV reviewed from 02/24/2023. Dr. Martínez suggested pain mgmt for injections. Since the last visit she continues on Lyrica 225 mg BID, Cymbalta 90 mg daily, and diclofenac 50 mg BID. She did PT last year with benefit. Reports that she does not exercise regularly but does kay her grandson around. Reports her posterior hips and lower back is painful 11/03. Reports that she takes hot baths, warm blankets, and her medications. Notes she had a bad day Monday. Reports that she see's her Chiropractor weekly with benefit. Reports she gets labs every 6 months at [facility]. Continues to have right foot numbness. Musculoskeletal ROS: . Abnormal: joint pain and back pain . AM stiffness (hours): intermittent . Pain scale (0-10): 8 . Fatigue scale (0-10): 8 Other ROS: . Constitutional: fatigue . Head headaches . Eyes: dryness . Ears, nose, throat, mouth: dry mouth . Cardiovascular: normal . Respiratory: normal . Gastrointestinal: normal . Genitourinary: normal . Skin: normal . Neurologic: numbness and tingling of her right foot All other ROS reviewed and negative. Pertinent positives listed in HPI. Social History: Social History Tobacco Use Smoking status: Never Smokeless tobacco: Never Substance Use Topics Alcohol use: No Vaping/E-Cigarette Use Vaping/E-Cigarette Substances Vaping/E-Cigarette Devices Current Outpatient Medications Medication Sig Dispense Refill VITAMIN D-3 1000 UNITS PO CAPS 1 per day TUMERIC CAPS Tylenol PM Extra Strength 500-25 MG Oral Tablet (diphenhydrAMINE-APAP (sleep)) Take 1 Tablet by mouth daily as needed for Sleep. Pravastatin Sodium 80 MG Oral Tablet Take 1 Tablet by mouth in the morning. Omeprazole 20 MG Oral Capsule Delayed Release (PriLOSEC) TAKE 1 CAPSULEBY MOUTH EVERY MORNING 90 Capsule 1 Oxybutynin Chloride ER 15 MG Oral Tablet Extended Release 24 Hour (Ditropan XL) TAKE 1 TABLET BY MOUTH DAILY. DO NOT CUT, CRUSH OR CHEW 90 Tablet 3 DULoxetine HCl 30 MG Oral Capsule Delayed Release Particles (Cymbalta) TAKE ONE CAPSULE BY MOUTH DAILY WITH THE 60MG FOR A TOTAL OF 90MG DAILY 90 Capsule 1 DULoxetine HCl 60 MG Oral Capsule Delayed Release Particles (Cymbalta) TAKE 1 CAPSULE BY MOUTH EVERY DAY 90 Capsule 0 Lisinopril-hydroCHLOROthiazide 10-12.5 MG Oral Tablet TAKE 1 TABLET BY MOUTH EVERY DAY 90 Tablet 0 Diclofenac Sodium 50 MG Oral Tablet Delayed Release (Voltaren) TAKE 1 TABLET BY MOUTH IN THE MORNING AND BEFORE BEDTIME 60 Tablet 5 Pregabalin 225 MG Oral Capsule (Lyrica) TAKE 1 CAPSULE BY MOUTH IN THE MORNING AND BEFORE BEDTIME 60 Capsule 5 Probiotic Advanced Oral Capsule Take by mouth. (Patient not taking: Reported on 04/29/2024) No current facility-administered medications for this visit. Physical Exam: Temp 36.2 °C (97.1 °F) (Infrared ) | Wt 91.2 kg (201 lb) | BMI 39.57 kg/m² | BSA 1.96 m² General: alert, healthy, and no distress HENT: normocephalic, external ears normal, no mucosal erythema, no mucosal edema, moist mucosa, no oral ulcers Neck: supple, no adenopathy Lymph: no palpable lymphadenopathy Heart: regular rate & rhythm, no murmur, and no gallops Lungs: clear to auscultation , no rales, wheezes or rhonchi Extremities: no edema, no clubbing, no cyanosis, heberdens nodes noted Neuro Exam: alert & oriented x 3 with fluent speech, no focal motor/sensory deficits, gait normal Skin: skin color, texture, turgor are normal, no rashes or significant lesions Musculoskeletal Exam: A comprehensive musculoskeletal exam was performed for all joints of each upper and lower extremity and assessed for swelling, tenderness and range of motion. Tenderness of DIPs, diffused soft tissues tenderness on exam with lower back pain. Muscle strength 4/5 in upper and lower extremities. Assessment: (M51.361) Degeneration of intervertebral disc of lumbar region with lower extremity pain (primary encounter diagnosis) Plan: PAIN MEDICINE REFERRAL OP (M79.7) Fibromyalgia (M15.9) Generalized osteoarthritis Plan: PAIN MEDICINE REFERRAL OP (Z71.159) Encounter for long-term (current) use of medications Plan: CBC WITH WBC DIFFERENTIAL, COMPREHENSIVE METABOLIC PANEL Ms. Landaverde returns today for mgmt of Fibromyalgia and OA. She did benefit from PT in the past. Has ongoing diffused pain related to her DDD and Fibromyalgia. Recommended Pain management, pt agreeablefor referral. Will continue current medication regiment. Discussed conservative measures for OA including stretching and exercises. Contact clinic with any questions or concerns. Plan: 1. Labs: CBC and CMP yearly 2. Referral for pain mgmt placed 3. Conservative measures for pain 4. No medication changes 5. Follow up 6 months 6. Contact clinic with any questions or concerns 7. Discussed the above in detail with the patient. All questions answered. CC DAYDAY Alvarez CRNP Department of Rheumatology The patient was discussed with me. I agree with the findings and plan as documented by Romario DUNBAR in this note. Louis Martínez MD Rheumatology Department documented in this encounter Nursing Notes * Radha Martins LPN - 04/29/2024 10:44 AM EST Chief Complaint Patient presents with Rheum Follow Up Recheck fibromyalgia, multiple joint pain documented in this encounter Plan of Treatment Scheduled Orders Name Type Priority Associated Diagnoses Orde r Schedule CBC WITH WBC DIFFERENTIAL Lab Routine Encounter for long-term (current) use of medications Ordered: 04/29/2024 COMPREHENSIVE METABOLIC PANEL Lab Routine Encounter for long-term (current) use of medications Ordered: 04/29/2024 Scheduled Procedures Name Priority Associated Diagnoses Date/Ti me COLONOSCOPY FLEXIBLE PROXIMAL DIAGNOSTIC Recall History of colon polyps Scheduled Referrals Name Type Priority Associated Diagnoses Orde r Schedule PAIN MEDICINE REFERRAL OP Referral Within 10 days (routine) Degeneration of intervertebral disc of lumbar region with lower extremity pain Generalized osteoarthritis Ordered: 04/29/2024 Health Maintenance Due Date Last Done Comments [...] Not on filedocumented as of this encounter Visit Diagnoses Diagnosis Degeneration of intervertebral disc of lumbar region with lower extremity pain- Primary Fibromyalgia Mylagia and myositis, unspecified Generalized osteoarthritis Generalized osteoarthrosis, unspecified site Encounter for long-term (current) use of medications Encounter for long-term (current) use of other medications documented in this encounter Care Teams Director Of Intercollegiate Athletics Relationship Specialty Start Date End Date Sudeep Read PA-C [address] [place] [id number] PCP - General Physician Alteration Worker 02/24/23 documented as of this encounter
--- OUTSIDE RECORDS SUMMARY | 2024-08-03 16:19 | External Medical Summary | Summary of Care ---
Author Name Unknown Organization [facility] Address [address] [facility] [place] [address] Phone [phone] Care Team Providers Care Entrepreneurial Finance Professor Name Role Phone Sudeep Read PA-C Primary Care Provider Reason for Visit * Reason Onset Date Comments Appointment 04/29/2024 PAIN MEDICINE Encounter Details Date Type Department Care Team (Late st Contact Info) Description 04/29/2024 Telephone Rhe[address] [place] [phone] Romario Arce CRNP [address] [place] [address] [place] [address] Appointment (PAIN MEDICINE) Allergies Active Allergy Reactions Criticality Noted Date [...] encounter Miscellaneous Notes * Telephone Encounter - Lucas Bills OSA - 04/30/2024 10:13 AM EST I spoke to Rubia. She wants scheduled locally. I faxed referral/records to [facility]. She is aware they will call her w/ an appt * Telephone Encounter - Lucas Bills OSA - 04/29/2024 2:48 PM EST Pain Med Referral was placed for pt. I called pt's cell, vm is full unable to leave a message. I will call pt again to see where she wants to go . If she wants [facility], will have to wait for the approval. documented in this encounter Plan of Treatment Scheduled Procedures Name Priority Associated Diagnoses Date/Ti [...] 12/01/2020, Additional history exists Mammogram 09/17/2023 09/16/2022, 07/07/2020, 05/31/2019 COVID-19 Vaccine ( - season) 2023 03/08/2021, 08/19/2020, 07/21/2020 Influenza Vaccine [...] filedocumented as of this encounter Care Teams Entrepreneurial Finance Professor Relationship Specialty Start Date End Date Sudeep Read PA-C [address] [place] [id number] PCP - General Physician Naphthalene Operator 02/24/23 documented as of this encounter
--- OUTSIDE RECORDS SUMMARY | 2024-08-03 16:19 | External Medical Summary | Summary of Care ---
Author Name Unknown Organization [facility] [address] [facility] [address] Phone [phone] Care Team Providers Care Small Business Representative Name Role Phone Sudeep Read PA-C Primary Care Provider Reason for Visit * Reason Onset Date Comments Medication Refill 02/16/2024 Encounter Details Date Type Department Care Team (Late st Contact Info) Description 02/16/2024 Refill Rheumatology [place] [id number] [place] [address] Louis Martínez MD [facility] [place] [address] Allergies Active Allergy Reactions Criticality Noted Date [...] Jama OSA - 02/16/2024 2:51 PM EST [place] - Patient Related Communication Reason for Call: Refill of unknown: Pregabalin 225 MG Oral Capsule (Lyrica) E [facility]/pharmacy #[id number] Valentina is in so much pain and requesting as soon as possible. And asking for return call when this issent. Thank you AYAAN Martin documented in this encounter Plan of Treatment Upcoming Encounters Date Type Department Care Team (Late st Contact Info) Description 03/01/2024 10:40 AM EST Office Visit Rheumatology [address] [place] [phone] Louis Martínez MD [facility] [place], [place] [address] Scheduled Procedures Name Priority Associated Diagnoses Date/Ti [...] filedocumented as of this encounter Care Teams Small Business Representative Relationship Specialty Start Date End Date Sudeep Read PA-C [address] [place] [address] [phone] PCP - General Physician Supervisor Statement Clerks 02/24/23 documented as of this encounter
--- OUTSIDE RECORDS SUMMARY | 2024-08-03 16:19 | External Medical Summary | Summary of Care ---
Author Name Unknown Organization [facility] Address [address] [facility] [place] [address] Phone [phone] Care Team Providers Care Desk Attendant Name Role Phone Sudeep Read PA-C Primary Care Provider Reason for Visit * Reason Onset Date Comments Appointment 04/29/2024 PAIN MEDICINE Encounter Details Date Type Department Care Team (Late st Contact Info) Description 04/29/2024 Telephone Rheumatology [address] [place] [phone] Romario Arce CRNP [address] [place] [address] [place] [address] Appointment (PAIN MEDICINE) Allergies Active Allergy Reactions [...] scheduled locally. I faxed referral/records to [facility]. She is aware they [...] filedocumented as of this encounter Care Teams Desk Attendant Relationship Specialty Start Date End Date Sudeep Read PA-C [address] [place] [id number] PCP - General Physician Backhoe Operator 02/24/23 documented as of this encounter
--- NOTE | 2024-08-03 16:43 | Emergency Department Note ---
Impression & Plan Acute UTI (urinary tract infection) ED Provider Note HISTORY OF PRESENT ILLNESS: Patient is a 69-year-old female presenting with sudden onset of abdominal pain, vomiting and diarrhea. Patient reports she had had half a sub at [facility] and had gone shopping at [facility] when she had sudden onset of upper abdominal pain and started to vomit. She reportedly had a syncopal episode while on the commode at [facility]. EMS was called. EMS reports that on their arrival, the patient was hypotensive with blood pressures in the 80s. States that she was diaphoretic and pale appearing. They report her twelve-lead EKG was normal sinus rhythm and patient was given about 500 cc of fluid in row and pressure improved. On arrival to the ER, the patient reports that her abdominal pain started in her subxiphoid region and radiates throughout her abdomen. Denies any history of aortic aneurysms. She denies any anticoagulation use. Currently complaining of nausea. Denies any recent fevers. Has an abdominal surgical history significant for a hysterectomy. Denies any recent fevers or chills. ROS: as above PHYSICAL EXAM: Constitutional: Patient appears in no acute distress. HENT: Head: Normocephalic and atraumatic. Eyes: EOMI, PERRL Mouth/Throat: Mucous membranes moist. Perioral pallor. Neck: Trachea midline. Neck supple. Cardiovascular: Tachycardic with regular rhythm. No murmurs, rubs or gallops. Intact distal pulses. Pulmonary/Chest: No respiratory distress. Breath sounds clear and equal bilaterally. No wheezes or rales. Abdominal: Abdomen soft, no rebound or guarding. Diffuse tenderness palpation. Musculoskeletal: No edema, tenderness or deformity noted. Skin: Warm and dry. No rash, erythema, pallor or cyanosis Psychiatric: Appropriate mood and affect for situation. Neurological: Alert and keenly responsive. CN II-XII grossly intact, moving all extremities equally and fully. MDM: - Vitals signs showed hypertensive and tachycardic. - History obtained via patient and EMS. History as above. - Chronic conditions affecting care: HLD; CLL; DM-2 - Differential diagnoses include, but are not limited to: UTI; dissection; ACS; electrolyte abnormality; dehydration; pneumonia; anemia - Order placed for continuous cardiac monitoring. At this time, monitor showed rate of 89 bpm with normal sinus rhythm, per my interpretation. - External medical records reviewed. - EKG image interpreted by myself showed normal sinus rhythm. Rate 85 bpm. QT 404. No acute ischemic changes. - Laboratory workup interpreted by myself showed leukocytosis (WBC 42.41 - patient has CLL); normal PT/INR; stable electrolytes; elevated lactate (2.9); normal troponin; normal lipase; normal procalcitonin - Blood cultures obtained - Patient given 2L NS in ER. Patient sepsis fluid volume calculation based on ideal body weight is 1363.50 mL - UA showed evidence of infection. Given 2g IV rocephin - CTA abdomen/pelvis negative for acute abnormality. - Discussion was had with case monitor about patient's case and need for admission - Hospitalist, Dr. Jc, consulted for admission - [facility] to [facility] for further evaluation and management. ASSESSMENT AND PLAN: Diagnosis: Acute UTI Plan: Admit Past Med/Surg History Problem List (Updated 08/03/24 @ 20:57 by Juana Moreira MD) Acute UTI (urinary tract infection) (Acute) Neck pain (Acute) Hypertension Vertigo (Acute) Encounter for pre-operative examination No known health problems Medical History (Updated 08/03/24 @ 20:57 by Juana Moreira MD) Chronic back pain Fibromyalgia Stable- chronic pain- generalized pain- no current flares GERD (gastroesophageal reflux disease) Well controlled and stable Diabetes mellitus, type 2 Diet controlled - glucose well controlled Leukemia CLL- under observation- gets checked every 6 months at [facility] in [place] > currently in remission Hyperlipidemia Sleep apnea no longer using cpap> too much congestion and kept waking patient up Surgical History History of esophagogastroduodenoscopy (EGD) History of colonoscopy History of lithotripsy History of partial hysterectomy Family History Grandmother (Paternal) Colon cancer Father Diabetes Sister Diabetes Brother Diabetes Social History Smoking Status: Never smoker Second Hand Exposure: No; Do You Dip or Chew Tobacco: No; Hx Alcohol Use: Yes Alcohol type: beer and wine Hx Substance Use: No Preferred Language: Divehi Communication Ability: Effective Proof Clerk Required: No Beliefs That Will Affect Care: Religion Religion Beliefs: Church Current Living Situation: Significant Other Feels Safe at Home: Yes Assistive Devices: None Allergies Allergies Allergy/AdvReac Type Severity Reaction Status Date / Time tetracycline AdvReac Intermediate BLACK & Verified 08/03/24 17:38 BLUE IN JOINTS, LOST USE OF LEGS Home Meds Home Medications Medication Instructions Recorded Confirmed cholecalciferol (vitamin D3) 25 25 mcg PO QAM 09/29/19 08/03/24 mcg (1,000 unit) tablet (Vitamin D3) lisinopril 10 1 tab PO QAM 09/29/19 08/03/24 mg-hydrochlorothiazide 12.5 mg tablet (Zestoretic) omeprazole 20 mg capsule,delayed 20 mg PO BID 09/29/19 08/03/24 release diclofenac sodium 50 mg 50 mg PO BID 09/19/22 08/03/24 tablet,delayed release duloxetine 30 mg capsule,delayed 30 mg PO DAILY 09/19/22 08/03/24 release duloxetine 60 mg capsule,delayed 60 mg PO DAILY 09/19/22 08/03/24 release pravastatin 80 mg tablet 80 mg PO DAILY 09/19/22 08/03/24 diphenhydramine 25 1 tab PO HS PRN Sleep 08/03/24 08/03/24 mg-acetaminophen 500 mg tablet (Tylenol PM Extra Strength) oxybutynin chloride 15 mg 15 mg PO DAILY 08/03/24 08/03/24 tablet,extended release 24 hr Results & Data (ED) Vital Signs Vital Signs - 24 hr 08/03/24 16:26 08/03/24 16:54 08/03/24 17:00 Temperature 36.4 C L Temperature Source Oral Pulse Rate 105 H Pulse Rate [Ulnar] 80 Pulse Rate from SpO2 Sensor Pulse Rhythm [Ulnar] Regular Pulse Strength [Ulnar] Normal Respiratory Rate 20 18 Respiratory Effort / Characteristics Non-Labored Spontaneous Non-Labored Respiratory Depth Normal Normal Respiratory Pattern Regular Regular Blood Pressure 85/44 L Blood Pressure [Right Arm] 134/68 Blood Pressure Mean 57 Blood Pressure Mean [Right Arm] 90 Blood Pressure Position Lying Blood Pressure Position [Right Arm] Lying Pulse Oximetry 97 100 99 Oxygen Delivery Method Room Air Room Air Room Air Sepsis Recent Fever Within 48 Hours No Sepsis New/Unexplained Change in Mental Status N/A Sepsis Action Taken by Nursing Physician Notified 08/03/24 17:30 08/03/24 18:14 08/03/24 18:18 Temperature Temperature Source Pulse Rate 86 Pulse Rate [Ulnar] 68 Pulse Rate from SpO2 Sensor 86 Pulse Rhythm [Ulnar] Regular Pulse Strength [Ulnar] Normal Respiratory Rate 20 20 Respiratory Effort / Characteristics Non-Labored Respiratory Depth Normal Respiratory Pattern Regular Blood Pressure 142/58 H Blood Pressure [Right Arm] 124/71 Blood Pressure Mean 111 Blood Pressure Mean [Right Arm] 88 Blood Pressure Position Blood Pressure Position [Right Arm] Lying Pulse Oximetry 100 96 Oxygen Delivery Method Room Air Sepsis Recent Fever Within 48 Hours Sepsis New/Unexplained Change in Mental Status Sepsis Action Taken by Nursing 08/03/24 18:22 08/03/24 20:00 Temperature Temperature Source Pulse Rate 89 Pulse Rate [Ulnar] 82 Pulse Rate from SpO2 Sensor Pulse Rhythm [Ulnar] Regular Pulse Strength [Ulnar] Normal Respiratory Rate 18 Respiratory Effort / Characteristics Non-Labored Respiratory Depth Normal Respiratory Pattern Regular Blood Pressure Blood Pressure [Right Arm] 115/71 Blood Pressure Mean Blood Pressure Mean [Right Arm] 85 Blood Pressure Position Blood Pressure Position [Right Arm] Sitting Pulse Oximetry 98 Oxygen Delivery Method Room Air Sepsis Recent Fever Within 48 Hours Sepsis New/Unexplained Change in Mental Status Sepsis Action Taken by Nursing Laboratory Data 08/03/24 16:44 08/03/24 16:44 Lab Results 08/03/24 08/03/24 08/03/24 Range/Units 16:44 17:45 20:27 WBC 42.41 H* (4.8-10.8) K/ul RBC 5.30 (4.20-5.40) M/uL Hgb 15.0 (12.0-16.0) g/dl Hct 45.6 (37.0-47.0) % MCV 86.0 (80.0-100.0) fL MCH 28.3 (25.0-34.0) pg MCHC 32.9 (32.0-36.0) g/dL RDW Std Deviation 49.1 H (36.4-46.3) fL RDW Coeff of Maynor 15.6 H (11.5-14.5) % Plt Count 232 (130-400) K/uL MPV 11.7 (9.4-12.4) fL Immature Gran % (Auto) 0.5 % Neut % (Auto) 30.6 % Lymph % (Auto) 66.3 % [place] % (Auto) 1.8 % Eos % (Auto) 0.4 % Baso % (Auto) 0.4 % Neut # (Auto) 12.98 H (1.40-6.50) K/uL Lymph # (Auto) 28.12 H (1.20-3.40) K/uL [place] # (Auto) 0.78 H (0.11-0.59) K/uL Eos # (Auto) 0.16 (0.00-0.50) K/uL Baso # (Auto) 0.16 (0.00-0.20) K/uL Immature Gran # (Auto) 0.21 H (0.01-0.20) K/uL RBC Morphology Unremarkable PT 11.6 (9.0-12.0) Seconds INR 1.1 (0.9-1.1) Sodium 139 (136-145) mmol/L Potassium 3.5 (3.5-5.1) mmol/L Chloride 101 (98-107) mmol/L Carbon Dioxide 25 (21-32) mmol/L Anion Gap 13 H (3-11) BUN 26 H (6-23) mg/dl Creatinine 1.11 (0.6-1.2) mg/dl Est Cr Clr Drug Dosing 45.6 ml/min eGFR 53.14 BUN/Creatinine Ratio 23.4 H (10-20) Glucose 167 H (70-99(Fasting)) mg/dl Lactate 2.9 H* 1.4 (0.4-2.0) mmol/L Calcium 9.6 (8.6-10.3) mg/dl Total Bilirubin 1.0 (0.2-1.0) mg/dl AST 22 (13-39) U/L ALT 18 (7-52) U/L Alkaline Phosphatase 66 (34-104) U/L Troponin I High Sens 3.4 (0-14) pg/ml Total Protein 7.6 (6.0-8.3) gm/dl Albumin 4.8 (3.4-5.0) gm/dl Globulin 2.8 (2.5-4.0) gm/dl Albumin/Globulin Ratio 1.7 (0.9-2) Lipase 11 (11-82) U/L Procalcitonin < 0.02 (0-0.5) ng/ml Urine Color Yellow Urine Appearance Clear (Clear) Urine pH 5.5 (4.5-7.5) Ur Specific [place] 1.014 (1.000-1.030) Urine Protein 1+ H (Negative) Urine Glucose (UA) Negative (Negative) Urine Ketones Trace H (Negative) Urine Blood Negative (Negative) Urine Nitrite Positive A (Negative) Urine Bilirubin Negative (Negative) Urine Urobilinogen Negative (Negative) Ur Leukocyte Esterase Trace H (Negative) Urine WBC (Auto) 0-5 (0-5) /hpf Urine RBC (Auto) 0-2 (0-2) /hpf U Hyaline Cast (Auto) >20 H (0-2) /lpf U Epithel Cells (Auto) 0-2 (0-2) /hpf Urine Bacteria (Auto) 4+ H (None Seen) Administered Medications Discontinued Medications Sodium Chloride (Nss) 1,000 mls @ 999 mls/hr IV .Q1H1M ONE Stop: 08/03/24 17:38 Last Infusion: 08/03/24 17:21 Dose: Infused Documented By: Admin: 08/03/24 16:47 Dose: 999 mls/hr Documented By: CATHY Sodium Chloride (Nss) 1,000 mls @ 999 mls/hr IV .Q1H1M ONE Stop: 08/03/24 17:49 Last Infusion: 08/03/24 18:34 Dose: Infused Documented By: Admin: 08/03/24 17:22 Dose: 999 mls/hr Documented By: CATHY Ceftriaxone Sodium (Rocephin) 2,000 mg in 50 mls @ 100 mls/hr IV NOW STA Stop: 08/03/24 19:17 Last Infusion: 08/03/24 20:35 Dose: Infused Documented By: Admin: 08/03/24 20:06 Dose: 100 mls/hr Documented By: XIOMARA Ioversol (Optiray 320 125ml) 118 ml IV ONCE ONE Stop: 08/03/24 18:06 Last Admin: 08/03/24 18:05 Dose: 118 ml Documented By: EDK Imaging Data Radiologist's Impression: Abdomen/Pelvis CTA 08/03/24 16:38 EXAM: CT angio abdomen pelvis w con CLINICAL HISTORY: Abdomen pain; syncope; N/V TECHNIQUE: CT angiography of the abdomen and pelvis was performed with intravenous contrast 118 ml Optiary 320 mg/ml was administrated using, with the following protocol: axial images, and reconstructed coronal and sagittal images. One of these 3D techniques was utilized: Maximum Intensity Pixel (MIP), 3D Reconstructed Images, Volume Rendered Images, Surface Shaded Rendering. "One of the following dose reduction techniques was utilized for this exam: Automated exposure control, adjustment of the mA and/or kV according to patient size, and use of iterative reconstruction." COMPARISON: Comparison is made with prior CT abdomen and pelvis dated 05/31/2023. FINDINGS: Abdominal Aorta: The abdominal aorta is normal in caliber, with no evidence of aneurysm or dissection. Atherosclerotic mural calcifications are noticed. Celiac Artery and Branches: The celiac artery and its branches (left gastric artery, splenic artery, common hepatic artery) are patent without stenosis or aneurysm. Superior Mesenteric Artery (SMA): The SMA is patent, with normal origin and course. No evidence of stenosis, aneurysm, or dissection. Minimal atherosclerotic intimal thickening is noted with no stenosis. Renal Arteries: Both renal arteries are patent with no evidence of stenosis, occlusion, or aneurysm. Normal enhancement of renal parenchyma. An accessory renal artery is noticed on each side, closely related to the main one. Inferior Mesenteric Artery (MONI): The MONI is patent with no evidence of stenosis or occlusion. Pelvic Arteries: The iliac arteries (common, internal, and external) are patent bilaterally without evidence of stenosis, occlusion, or aneurysm. Other Abdominal and Pelvic Vessels: The portal vein, splenic vein, and superior mesenteric vein are patent with normal enhancement. Retroaortic left renal vein. Solid Organs: Liver: Normal in size, shape, and density. No focal lesions. Normal enhancement pattern. Gallbladder and Biliary System: Gallbladder is surgically absent. Bile ducts are prominent in caliber; expected postcholecystectomy changes. Pancreas: Normal in size and density. No masses or cysts. Normal enhancement. Spleen: Normal in size and density. No focal lesions. Normal enhancement. Kidneys and Adrenal Glands: Normal in size and shape. No renal masses or hydronephrosis. Left renal middle calyx tiny non-obstructing stone 3 mm (unchanged). Adrenal glands are unremarkable. Normal enhancement. Bowel: No evidence of bowel obstruction or significant bowel wall thickening. No abnormal enhancement. The uterus is not seen. Peritoneal and Retroperitoneal Structures: No free fluid or abnormal fluid collections were identified within the abdomen or pelvis. No lymphadenopathy was noted. Bones and Soft Tissues: Pelvic bones and soft tissues are unremarkable. No fractures or abnormal masses were identified. Lumbar spondylosis and dextroscoliosis. 1st degree degenerative spondylolisthesis of L5 over S1 vertebrae (unchnaged). IMPRESSION: 1. No significant vascular abnormality. 2. No acute abdominal pathology. 3. Stable left renal tiny stone. Electronically signed by Jovanni Bond 08-03-2024 7:16 PM Discharge Plan Visit Data Chief Complaint: Abdominal Pain Stated Complaint: AB PAIN, NAUSEA, VOMITING, ED Provider: Juana Moreira Discharge Problem: Acute UTI (urinary tract infection) Condition: Fair Forms Stand Alone Forms: [facility] Prescriptions Prescriptions: No Action omeprazole 20 mg capsule,delayed release(DR/EC) 20 mg PO BID lisinopril-hydrochlorothiazide [Zestoretic] 10-12.5 mg tablet 1 tab PO QAM cholecalciferol (vitamin D3) [Vitamin D3] 25 mcg (1,000 unit) Tablet 25 mcg PO QAM pravastatin 80 mg tablet 80 mg PO DAILY diclofenac sodium 50 mg tablet,delayed release (DR/EC) 50 mg PO BID duloxetine 30 mg capsule,delayed release(DR/EC) 30 mg PO DAILY Rx Instructions: TOTAL DOSE 90 MG--TAKES WITH 60 MG CAP. duloxetine 60 mg capsule,delayed release(DR/EC) 60 mg PO DAILY Rx Instructions: TOTAL DOSE 90 MG--TAKES WITH 30 MG CAP. oxybutynin chloride 15 mg tablet extended release 24hr 15 mg PO DAILY diphenhydramine-acetaminophen [Tylenol PM Extra Strength] 25-500 mg Tablet 1 tab PO HS PRN (Reason: Sleep) Referrals Referrals: Sudeep Read PA-C [Primary Care Provider] -
[2024-08-03] MEDS: SODIUM CHLORIDE 0.9% 1,000 ML IV ONE ×2 (16:47→17:22)
[2024-08-03 17:22] LABS: Hematocrit (blood only) 45.6 % (37.0-47.0); Mean Corpuscular Hemoglobin 28.3 pg (25.0-34.0); Mean Corpuscular Hgb Conc 32.9 g/dL (32.0-36.0); Mean Platelet Volume 11.7 fL (9.4-12.4); Platelet Count 232 K/uL (130-400); RDW Coefficient of Variation 15.6 % (11.5-14.5); RDW Standard Deviation 49.1 fL (36.4-46.3); White Blood Count 42.41 K/ul (4.8-10.8)
[2024-08-03 17:23] LABS: Albumin Globulin Ratio 1.7 (0.9-2); Albumin Level 4.8 gm/dl (3.4-5.0); BUN Creatinine Ratio 23.4 (10-20); Calcium 9.6 mg/dl (8.6-10.3); Creatinine Clr Calc Pharmacy 45.6 ml/min; Globulin 2.8 gm/dl (2.5-4.0); Potassium 3.5 mmol/L (3.5-5.1); Total Protein 7.6 gm/dl (6.0-8.3)
[2024-08-03 17:24] LABS: Basophils # (auto) 0.16 K/uL (0.00-0.20); Basophils % (auto) 0.4 %; Eosinophils # (auto) 0.16 K/uL (0.00-0.50); Eosinophils % (auto) 0.4 %; Immature Granulocytes # (auto) 0.21 K/uL (0.01-0.20); Immature Granulocytes % (auto) 0.5 %; Lymphocytes # (auto) 28.12 K/uL (1.20-3.40); Lymphocytes % (auto) 66.3 %; Monocytes # (auto) 0.78 K/uL (0.11-0.59); Monocytes % (auto) 1.8 %; Neutrophils # (auto) 12.98 K/uL (1.40-6.50); Neutrophils % (auto) 30.6 %; RBC Morphology Unremarkable
[2024-08-03 17:29] LABS: INR 1.1 (0.9-1.1); Prothrombin Time 11.6 Seconds (9.0-12.0); Troponin I High Sensitivity 3.4 pg/ml (0-14)
[2024-08-03 18:03] LABS: Appearance Urine Clear (Clear); Bacteria Urine Automated 4+ (None Seen); Bilirubin Urine Negative (Negative); Blood Urine Negative (Negative); Cast Urine Automated >20 /lpf (0-2); Color Urine Yellow; Epithelial Cell Urine Auto 0-2 /hpf (0-2); Glucose Urine UA Negative (Negative); Ketones Urine Trace (Negative); Leukocyte Esterase Urine Trace (Negative); Nitrite Urine Positive (Negative); Protein Urine 1+ (Negative); RBC Urine Automated 0-2 /hpf (0-2); Specific Gravity Urine 1.014 (1.000-1.030); Urobilinogen Urine Negative (Negative); WBC Urine Automated 0-5 /hpf (0-5); pH Urine 5.5 (4.5-7.5)
[2024-08-03] MEDS: OPTIRAY 320 125ml IV ONE (18:05)
--- NOTE | 2024-08-03 19:16 | CT Scan Report ---
EXAM: CT angio abdomen pelvis w con CLINICAL HISTORY: Abdomen pain; syncope; N/V TECHNIQUE: CT angiography of the abdomen and pelvis was performed with intravenous contrast 118 ml Optiary 320 mg/ml was administrated using, with the following protocol: axial images, and reconstructed coronal and sagittal images. One of these 3D techniques was utilized: Maximum Intensity Pixel (MIP), 3D Reconstructed Images, Volume Rendered Images, Surface Shaded Rendering. "One of the following dose reduction techniques was utilized for this exam: Automated exposure control, adjustment of the mA and/or kV according to patient size, and use of iterative reconstruction." COMPARISON: Comparison is made with prior CT abdomen and pelvis dated 05/31/2023. FINDINGS: Abdominal Aorta: The abdominal aorta is normal in caliber, with no evidence of aneurysm or dissection. Atherosclerotic mural calcifications are noticed. Celiac Artery and Branches: The celiac artery and its branches (left gastric artery, splenic artery, common hepatic artery) are patent without stenosis or aneurysm. Superior Mesenteric Artery (SMA): The SMA is patent, with normal origin and course. No evidence of stenosis, aneurysm, or dissection. Minimal atherosclerotic intimal thickening is noted with no stenosis. Renal Arteries: Both renal arteries are patent with no evidence of stenosis, occlusion, or aneurysm. Normal enhancement of renal parenchyma. An accessory renal artery is noticed on each side, closely related to the main one. Inferior Mesenteric Artery (MONI): The MONI is patent with no evidence of stenosis or occlusion. Pelvic Arteries: The iliac arteries (common, internal, and external) are patent bilaterally without evidence of stenosis, occlusion, or aneurysm. Other Abdominal and Pelvic Vessels: The portal vein, splenic vein, and superior mesenteric vein are patent with normal enhancement. Retroaortic left renal vein. Solid Organs: Liver: Normal in size, shape, and density. No focal lesions. Normal enhancement pattern. Gallbladder and Biliary System: Gallbladder is surgically absent. Bile ducts are prominent in caliber; expected postcholecystectomy changes. Pancreas: Normal in size and density. No masses or cysts. Normal enhancement. Spleen: Normal in size and density. No focal lesions. Normal enhancement. Kidneys and Adrenal Glands: Normal in size and shape. No renal masses or hydronephrosis. Left renal middle calyx tiny non-obstructing stone 3 mm (unchanged). Adrenal glands are unremarkable. Normal enhancement. Bowel: No evidence of bowel obstruction or significant bowel wall thickening. No abnormal enhancement. The uterus is not seen. Peritoneal and Retroperitoneal Structures: No free fluid or abnormal fluid collections were identified within the abdomen or pelvis. No lymphadenopathy was noted. Bones and Soft Tissues: Pelvic bones and soft tissues are unremarkable. No fractures or abnormal masses were identified. Lumbar spondylosis and dextroscoliosis. 1st degree degenerative spondylolisthesis of L5 over S1 vertebrae (unchnaged). IMPRESSION: 1. No significant vascular abnormality. 2. No acute abdominal pathology. 3. Stable left renal tiny stone. Electronically signed by Jovanni Bond 08-03-2024 7:16 PM
--- NOTE | 2024-08-03 19:59 | History & Physical Report ---
Date of Service August 03, 2024 Assessment & Plan (1) Nausea vomiting and diarrhea: (2) Acute UTI (urinary tract infection): (3) GERD (gastroesophageal reflux disease): (4) Diabetes mellitus, type 2: (5) Hyperlipidemia: (6) Sleep apnea: Plan 69-year-old female with history of diabetes, hypertension, CLL and GERD presenting with acute onset upper abdominal pain followed by nausea, vomiting with multiple episodes of watery diarrhea occurring here in the emergency room. Patient afebrile, hemodynamically stable at present. Still with ongoing abdominal pain #Nausea/vomiting/diarrheaetiology unclear at this time. Question viral illness versus foodborne illness. Renal function is intact and electrolytes are acceptable Admit to medical telemetry Check stool PCR and C. difficile Continue IV fluidsLR at 100 mL/h x 2 L Zofran as needed for nausea #Acute UTIpatient's urine analysis suggestive of infection Follow culture Continue ceftriaxone #GERD patient on omeprazole 20 mg p.o. twice daily Protonix 40 mg p.o. twice daily #Diabetesdiet controlled Check chemistry panel in the morning #Hyperlipidemia Continue pravastatin #Hypertension Will hold lisinopril/hydrochlorothiazide for now Resume in the morning if blood pressure and renal function are fair History of Present Illness Chief Complaint: abdominal pain Primary Care Provider: Sudeep Read PA-C Valentina Landaverde is a 69yo female with history of CLL, hyperlipidemia, hypertension, GERD, fibromyalgia and diet-controlled diabetes presenting with abdominal pain, nausea/vomiting/diarrhea. Patient was running errands today to help her granddaughter get ready for the prom. she ate a sub from [employer] and drank some iced tea. About an hour later she was shopping [facility] when she developed diaphoresis and upper abdominal pain. She went to the bathroom and had a normal bowel movement. She had improvement in her abdominal discomfort initially but then it returned. She had another normal BM but the abdominal pain continued - bandlike pain across her upper abdomen and pressure under her ribs. She went outside to get some air and continued to have severe abdominal pain with diaphoresis and some perioral pallor noted by a friend at [facility]. She developed nausea with two episodes of non-bloody vomiting. She drank a little bit of water but continued to have abdominal pain, nausea and dizziness so EMS was called. In the ER she had several episodes of diarrhea. Denies fever, chills, chest pain split the [employer] sub with her and does not have any symptoms. in the ER patient is afebrile, hemodynamically stable Patient still complaining of upper abdominal pain Allergies Allergy/AdvReac Type Severity Reaction Status Date / Time tetracycline AdvReac Intermediate BLACK & Verified 08/03/24 17:38 BLUE IN JOINTS, LOST USE OF LEGS Home Medications Medication Instructions Recorded Confirmed Type cholecalciferol (vitamin D3) 25 25 mcg PO QAM 09/29/19 08/03/24 History mcg (1,000 unit) tablet (Vitamin D3) lisinopril 10 1 tab PO QAM 09/29/19 08/03/24 History mg-hydrochlorothiazide 12.5 mg tablet (Zestoretic) omeprazole 20 mg capsule,delayed 20 mg PO BID 09/29/19 08/03/24 History release diclofenac sodium 50 mg 50 mg PO BID 09/19/22 08/03/24 History tablet,delayed release duloxetine 30 mg capsule,delayed 30 mg PO DAILY 09/19/22 08/03/24 History release duloxetine 60 mg capsule,delayed 60 mg PO DAILY 09/19/22 08/03/24 History release pravastatin 80 mg tablet 80 mg PO DAILY 09/19/22 08/03/24 History diphenhydramine 25 1 tab PO HS PRN Sleep 08/03/24 08/03/24 History mg-acetaminophen 500 mg tablet (Tylenol PM Extra Strength) oxybutynin chloride 15 mg 15 mg PO DAILY 08/03/24 08/03/24 History tablet,extended release 24 hr Past Med/Surg History Problem List Acute UTI (urinary tract infection) (Acute) Neck pain (Acute) Hypertension Vertigo (Acute) Encounter for pre-operative examination No known health problems Medical History Chronic back pain Fibromyalgia Stable- chronic pain- generalized pain- no current flares GERD (gastroesophageal reflux disease) Well controlled and stable Diabetes mellitus, type 2 Diet controlled - glucose well controlled Leukemia CLL- under observation- gets checked every 6 months at [facility] in [place] > currently in remission Hyperlipidemia Sleep apnea no longer using cpap> too much congestion and kept waking patient up Surgical History History of esophagogastroduodenoscopy (EGD) History of colonoscopy History of lithotripsy History of partial hysterectomy Family History Grandmother (Paternal) Colon cancer Father Diabetes Sister Diabetes Brother Diabetes Social History Smoking Status: Never smoker Second Hand Exposure: No; Do You Dip or Chew Tobacco: No; Hx Alcohol Use: Yes Alcohol type: beer and wine Hx Substance Use: No Preferred Language: Lao 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 Beliefs That Will Affect Care: None Current Living Situation: Spouse and Other Other Information That Helps Us Care for You: No Feels Safe at Home: Yes Safety Concerns: Feels Safe At This Time Assistive Devices: Cane and Glasses Review of Systems Review of Systems: All systems reviewed & are unremarkable except as noted in HPI & below Physical Exam Physical Exam: General: patient resting comfortably, NAD, non-toxic in appearance, AA&O x 4 Skin: warm, dry, intact, no rashes or lesions HEENT: NC/AT, PERRL, EOMI, anicteric sclera, conjunctiva without injection, external ear normal to inspection and nontender, nares patent, moist mucus membranes, dentition intact, no oropharyngeal lesions, neck supple, trachea mid line, no LAD, no thyromegaly, no JVD Heart: +S1/S2, regular, no m/r/g Lungs: equal air entry bilaterally, no rales/rhonchi/wheezes Abd: +BS, soft, upper abdominal tenderness, no rebound/guarding/peritonitis, no masses/organomegaly/ascites Ext: warm, 2+ pulses in UE/LE bilaterally, no clubbing/cyanosis or edema Neuro: nonfocal, patient AA&O x 4, speech intact, no facial droop, moving all extremities on command with equal strength 5/5 Results & Data Results & Data Vital Signs (Past 12 Hours) Vital Signs Temp Pulse Pulse Resp BP BP Pulse Ox 08/03/24 18:22 89 08/03/24 18:18 86 20 96 08/03/24 18:14 142/58 H 05/10/25 17:30 68 20 124/71 100 08/03/24 17:00 80 18 134/68 99 08/03/24 16:54 100 08/03/24 16:26 36.4 C L 105 H 20 85/44 L 97 O2 Del Method 08/03/24 18:22 08/03/24 18:18 08/03/24 18:14 08/03/24 17:30 Room Air 08/03/24 17:00 Room Air 08/03/24 16:54 Room Air 08/03/24 16:26 Room Air Laboratory Results Laboratory Results WBC 42.41 K/ul (4.8-10.8) H* 08/03/24 16:44 RBC 5.30 M/uL (4.20-5.40) 08/03/24 16:44 Hgb 15.0 g/dl (12.0-16.0) 08/03/24 16:44 Hct 45.6 % (37.0-47.0) 08/03/24 16:44 MCV 86.0 fL (80.0-100.0) 08/03/24 16:44 MCH 28.3 pg (25.0-34.0) 08/03/24 16:44 MCHC 32.9 g/dL (32.0-36.0) 08/03/24 16:44 RDW Std Deviation 49.1 fL (36.4-46.3) H 08/03/24 16:44 RDW Coeff of Maynor 15.6 % (11.5-14.5) H 08/03/24 16:44 Plt Count 232 K/uL (130-400) 08/03/24 16:44 MPV 11.7 fL (9.4-12.4) 08/03/24 16:44 Immature Gran % (Auto) 0.5 % 08/03/24 16:44 Neut % (Auto) 30.6 % 08/03/24 16:44 Lymph % (Auto) 66.3 % 08/03/24 16:44 Morris % (Auto) 1.8 % 08/03/24 16:44 Eos % (Auto) 0.4 % 08/03/24 16:44 Baso % (Auto) 0.4 % 08/03/24 16:44 Neut # (Auto) 12.98 K/uL (1.40-6.50) H 08/03/24 16:44 Lymph # (Auto) 28.12 K/uL (1.20-3.40) H 08/03/24 16:44 Morris # (Auto) 0.78 K/uL (0.11-0.59) H 08/03/24 16:44 Eos # (Auto) 0.16 K/uL (0.00-0.50) 08/03/24 16:44 Baso # (Auto) 0.16 K/uL (0.00-0.20) 08/03/24 16:44 Immature Gran # (Auto) 0.21 K/uL (0.01-0.20) H 08/03/24 16:44 RBC Morphology Unremarkable 08/03/24 16:44 PT 11.6 Seconds (9.0-12.0) 08/03/24 16:44 INR 1.1 (0.9-1.1) 08/03/24 16:44 Sodium 139 mmol/L (136-145) 08/03/24 16:44 Potassium 3.5 mmol/L (3.5-5.1) 08/03/24 16:44 Chloride 101 mmol/L (98-107) 08/03/24 16:44 Carbon Dioxide 25 mmol/L (21-32) 08/03/24 16:44 Anion Gap 13 (3-11) H 08/03/24 16:44 BUN 26 mg/dl (6-23) H 08/03/24 16:44 Creatinine 1.11 mg/dl (0.6-1.2) 08/03/24 16:44 Est Cr Clr Drug Dosing 45.6 ml/min 08/03/24 16:44 eGFR 53.14 08/03/24 16:44 BUN/Creatinine Ratio 23.4 (10-20) H 08/03/24 16:44 Glucose 167 mg/dl (70-99(Fasting)) H 08/03/24 16:44 POC Glucose 127 mg/dl (70-99) H 08/03/24 22:00 Lactate 1.4 mmol/L (0.4-2.0) 08/03/24 20:27 Calcium 9.6 mg/dl (8.6-10.3) 08/03/24 16:44 Total Bilirubin 1.0 mg/dl (0.2-1.0) 08/03/24 16:44 AST 22 U/L (13-39) 08/03/24 16:44 ALT 18 U/L (7-52) 08/03/24 16:44 Alkaline Phosphatase 66 U/L (34-104) 08/03/24 16:44 Troponin I High Sens 3.4 pg/ml (0-14) 08/03/24 16:44 Total Protein 7.6 gm/dl (6.0-8.3) 08/03/24 16:44 Albumin 4.8 gm/dl (3.4-5.0) 08/03/24 16:44 Globulin 2.8 gm/dl (2.5-4.0) 08/03/24 16:44 Albumin/Globulin Ratio 1.7 (0.9-2) 08/03/24 16:44 Lipase 11 U/L (11-82) 08/03/24 16:44 Procalcitonin < 0.02 ng/ml (0-0.5) 08/03/24 16:44 Urine Color Yellow 08/03/24 17:45 Urine Appearance Clear (Clear) 08/03/24 17:45 Urine pH 5.5 (4.5-7.5) 08/03/24 17:45 Ur Specific [place] 1.014 (1.000-1.030) 08/03/24 17:45 Urine Protein 1+ (Negative) H 08/03/24 17:45 Urine Glucose (UA) Negative (Negative) 08/03/24 17:45 Urine Ketones Trace (Negative) H 08/03/24 17:45 Urine Blood Negative (Negative) 08/03/24 17:45 Urine Nitrite Positive (Negative) A 08/03/24 17:45 Urine Bilirubin Negative (Negative) 08/03/24 17:45 Urine Urobilinogen Negative (Negative) 08/03/24 17:45 Ur Leukocyte Esterase Trace (Negative) H 08/03/24 17:45 Urine WBC (Auto) 0-5 /hpf (0-5) 08/03/24 17:45 Urine RBC (Auto) 0-2 /hpf (0-2) 08/03/24 17:45 U Hyaline Cast (Auto) >20 /lpf (0-2) H 08/03/24 17:45 U Epithel Cells (Auto) 0-2 /hpf (0-2) 08/03/24 17:45 Urine Bacteria (Auto) 4+ (None Seen) H 08/03/24 17:45 Impressions Abdomen/Pelvis CTA 08/03/24 16:38 EXAM: CT angio abdomen pelvis w con CLINICAL HISTORY: Abdomen pain; syncope; N/V TECHNIQUE: CT angiography of the abdomen and pelvis was performed with intravenous contrast 118 ml Optiary 320 mg/ml was administrated using, with the following protocol: axial images, and reconstructed coronal and sagittal images. One of these 3D techniques was utilized: Maximum Intensity Pixel (MIP), 3D Reconstructed Images, Volume Rendered Images, Surface Shaded Rendering. "One of the following dose reduction techniques was utilized for this exam: Automated exposure control, adjustment of the mA and/or kV according to patient size, and use of iterative reconstruction." COMPARISON: Comparison is made with prior CT abdomen and pelvis dated 05/31/2023. FINDINGS: Abdominal Aorta: The abdominal aorta is normal in caliber, with no evidence of aneurysm or dissection. Atherosclerotic mural calcifications are noticed. Celiac Artery and Branches: The celiac artery and its branches (left gastric artery, splenic artery, common hepatic artery) are patent without stenosis or aneurysm. Superior Mesenteric Artery (SMA): The SMA is patent, with normal origin and course. No evidence of stenosis, aneurysm, or dissection. Minimal atherosclerotic intimal thickening is noted with no stenosis. Renal Arteries: Both renal arteries are patent with no evidence of stenosis, occlusion, or aneurysm. Normal enhancement of renal parenchyma. An accessory renal artery is noticed on each side, closely related to the main one. Inferior Mesenteric Artery (MONI): The MONI is patent with no evidence of stenosis or occlusion. Pelvic Arteries: The iliac arteries (common, internal, and external) are patent bilaterally without evidence of stenosis, occlusion, or aneurysm. Other Abdominal and Pelvic Vessels: The portal vein, splenic vein, and superior mesenteric vein are patent with normal enhancement. Retroaortic left renal vein. Solid Organs: Liver: Normal in size, shape, and density. No focal lesions. Normal enhancement pattern. Gallbladder and Biliary System: Gallbladder is surgically absent. Bile ducts are prominent in caliber; expected postcholecystectomy changes. Pancreas: Normal in size and density. No masses or cysts. Normal enhancement. Spleen: Normal in size and density. No focal lesions. Normal enhancement. Kidneys and Adrenal Glands: Normal in size and shape. No renal masses or hydronephrosis. Left renal middle calyx tiny non-obstructing stone 3 mm (unchanged). Adrenal glands are unremarkable. Normal enhancement. Bowel: No evidence of bowel obstruction or significant bowel wall thickening. No abnormal enhancement. The uterus is not seen. Peritoneal and Retroperitoneal Structures: No free fluid or abnormal fluid collections were identified within the abdomen or pelvis. No lymphadenopathy was noted. Bones and Soft Tissues: Pelvic bones and soft tissues are unremarkable. No fractures or abnormal masses were identified. Lumbar spondylosis and dextroscoliosis. 1st degree degenerative spondylolisthesis of L5 over S1 vertebrae (unchnaged). IMPRESSION: 1. No significant vascular abnormality. 2. No acute abdominal pathology. 3. Stable left renal tiny stone. Electronically signed by Jovanni Bond 08-03-2024 7:16 PM ECG Additional Comments: EKG with normal sinus rhythm at 85 bpm, normal axis, IL = 176, QRS = 90, QTc = 480, no acute ischemic changes PG Care Time/CCT Total # of Minutes Spent Total Time Spent with Patient: Total time spent is greater than 50% in coordination of care (as documented) at patient's floor/unit and/or counseling patient: Coding Level of Care Code 26480 INT INP/OBS CARE 3/75MIN Diagnoses Nausea vomiting and diarrhea R11.2; R19.7 Acute UTI (urinary tract infection) N39.0 GERD (gastroesophageal reflux disease) K21.9 Diabetes mellitus, type 2 E11.9 Hyperlipidemia E78.5 Sleep apnea G47.30
[2024-08-03] MEDS: cefTRIAXone SODIUM 2,000 MG/50 ML BAG IV STA (20:06)
[2024-08-03] MEDS ORDERED: GLUCOSE 40% GEL 15 GM TUBE PO PRN (22:01)
[2024-08-03] MEDS ORDERED: DEXTROSE 50% 50 ML SYRINGE IV PRN (22:01)
[2024-08-03] MEDS ORDERED: GLUCOSE 10 TAB/TUBE PO PRN (22:01)
[2024-08-03] MEDS ORDERED: CARBOHYDRATES FOR HYPOGLYCEMIA PO PRN (22:01)
[2024-08-03] MEDS ORDERED: GLUCAGON FOR INJ 1 MG VIAL SQ PRN (22:01)
[2024-08-03] MEDS: LACTATED RINGER'S 1,000 ML IV SCH (22:20)
[2024-08-03] MEDS: ACETAMINOPHEN 325 MG TAB PO PRN (22:50)
[2024-08-03] MEDS: PANTOprazole 40 MG TAB PO SCH (22:50)
[2024-08-03] MEDS: ONDANSETRON INJ 2 MG/ML 2 ML VIAL IV PRN (22:50)
[2024-08-04 06:43] LABS: Hematocrit (blood only) 37.7 % (37.0-47.0); Hemoglobin 12.5 g/dl (12.0-16.0); Mean Corpuscular Hemoglobin 28.5 pg (25.0-34.0); Mean Corpuscular Hgb Conc 33.2 g/dL (32.0-36.0); Mean Corpuscular Volume 85.9 fL (80.0-100.0); Mean Platelet Volume 11.5 fL (9.4-12.4); Platelet Count 176 K/uL (130-400); RDW Coefficient of Variation 15.7 % (11.5-14.5); RDW Standard Deviation 49.3 fL (36.4-46.3); Red Blood Count 4.39 M/uL (4.20-5.40); White Blood Count 25.89 K/ul (4.8-10.8)
[2024-08-04 07:12] LABS: Calcium 8.4 mg/dl (8.6-10.3); Creatinine Clr Calc Pharmacy 69.8 ml/min; Potassium 3.4 mmol/L (3.5-5.1)
--- NOTE | 2024-08-04 07:12 | Electrocardiogram Report ---
Test Reason : Blood Pressure : */* mmHG Vent. Rate : 85 BPM Atrial Rate : 85 BPM P-R Int : 176 ms QRS Dur : 90 ms QT Int : 404 ms P-R-T Axes : 48 53 32 degrees QTcB Int : 480 ms Normal sinus rhythm Normal ECG When compared with ECG of 31-May-2023 16:36, Nonspecific T wave abnormality no longer evident in Anterolateral leads Confirmed by Sampson Monsivais ([id number]) on 08/04/2024 7:11:48 AM Referred By: REFERRED SELF Confirmed By: Sampson Monsivais
[2024-08-04] MEDS: OXYBUTYNIN CHLORIDE XL 5 MG TABCR PO SCH (07:52)
[2024-08-04] MEDS: PRAVASTATIN SOD 40 MG TAB PO SCH (07:52)
[2024-08-04] MEDS: DULoxetine HCL 30 MG CAP PO SCH (07:52)
[2024-08-04] MEDS: DULoxetine HCL 60 MG CAP PO SCH (07:52)
[2024-08-04 11:05] LABS: Adenovirus F 40/41 PCR Not Detected (NotDetected); Astrovirus PCR Not Detected (NotDetected); Campylobacter PCR Not Detected (NotDetected); Cryptosporidium PCR Not Detected (NotDetected); Cyclospora cayetanensis PCR Not Detected (NotDetected); Entamoeba histolytica PCR Not Detected (NotDetected); Enteroaggregative E.coli(EAEC) Not Detected (NotDetected); Enteropathogenic E.coli (EPEC) Not Detected (NotDetected); Enterotoxigenic E.coli (ETEC) Not Detected (NotDetected); Giardia lamblia PCR Not Detected (NotDetected); Norovirus GI/GII PCR Not Detected (NotDetected); Plesiomonas shigelloides PCR Not Detected (NotDetected); Rotavirus A PCR Not Detected (NotDetected); Salmonella PCR Not Detected (NotDetected); Sapovirus PCR Not Detected (NotDetected); Shiga-like Toxin E.coli (STEC) Not Detected (NotDetected); Shigella/Enteroinvasive E.coli Not Detected (NotDetected); Vibrio cholerae PCR Not Detected (NotDetected); Vibrio species PCR Not Detected (NotDetected); Yersinia enterocolitica PCR Not Detected (NotDetected)
[2024-08-04 14:41] LABS: Hematocrit (blood only) 36.3 % (37.0-47.0); Hemoglobin 11.8 g/dl (12.0-16.0)
[2024-08-04] MEDS: metroNIDAZOLE 500 MG/100 ML BAG IV SCH (15:12)
[2024-08-04] MEDS: FEXOFENADINE 60 MG TAB PO ONE (15:12)
[2024-08-04] MEDS: cefTRIAXone SODIUM 2,000 MG/50 ML BAG IV SCH (19:41)
[2024-08-04 20:29] LABS: Hematocrit (blood only) 35.6 % (37.0-47.0); Hemoglobin 11.7 g/dl (12.0-16.0)
--- NOTE | 2024-08-04 20:45 | Hospitalist Progress Note ---
Date of Service August 04, 2024 Assessment & Plan (1) Nausea vomiting and diarrhea: Plan: Continue symptomatic management Blood in stool is concerning GI PCR has been so far negative stool for C. difficile is negative Not sure if this is infective in etiology Patient shared half a [employer] burger with her who is doing fine (2) Acute UTI (urinary tract infection): Plan: Continue patient on ceftriaxone (3) GERD (gastroesophageal reflux disease): Plan: Patient is on Protonix (4) Diabetes mellitus, type 2: Plan: I will start patient on ACHS blood sugar and insulin protocol (5) Hyperlipidemia: Plan: Continue patient on pravastatin (6) Sleep apnea: Plan: Follow-up out Plan 69-year-old female with history of diabetes, hypertension, CLL and GERD presenting with acute onset upper abdominal pain followed by nausea, vomiting with multiple episodes of watery diarrhea occurring here in the emergency room. Patient afebrile, hemodynamically stable at present. Still with ongoing abdominal pain #Nausea/vomiting/diarrheaetiology unclear at this time. Question viral illness versus foodborne illness. Renal function is intact and electrolytes are acceptable Admit to medical telemetry stool PCR and C. difficile has been negative so far Continue IV fluidsLR at 100 mL/h x 2 L Zofran as needed for nausea - GI consult has been sought #Acute UTIpatient's urine analysis suggestive of infection Follow culture Continue ceftriaxone #GERD patient on omeprazole 20 mg p.o. twice daily Protonix 40 mg p.o. twice daily #Diabetesdiet controlled Check chemistry panel in the morning #Hyperlipidemia Continue pravastatin #Hypertension Will hold lisinopril/hydrochlorothiazide for now Resume in the morning if blood pressure and renal function are fair Admission and Anticipated Discharge Date Admission Date: August 03, 2024 Subjective Follow-up of patient admitted with nausea vomiting and diarrhea, patient had blood in her stool this was new for her Review of Systems Review of Systems: Positive for abdominal pain negative for any chest pain negative for shortness of breath Physical Exam Physical Exam: General: patient resting comfortably, NAD, non-toxic in appearance, AA&O x 4 Skin: warm, dry, intact, no rashes or lesions HEENT: NC/AT, PERRL, EOMI, anicteric sclera, conjunctiva without injection, external ear normal to inspection and nontender, nares patent, moist mucus membranes, dentition intact, no oropharyngeal lesions, neck supple, trachea midline, no LAD, no thyromegaly, no JVD Heart: +S1/S2, regular, no m/r/g Lungs: equal air entry bilaterally, no rales/rhonchi/wheezes Abd: +BS, soft, upper abdominal tenderness, no rebound/guarding/peritonitis, no masses/organomegaly/ascites Ext: warm, 2+ pulses in UE/LE bilaterally, no clubbing/cyanosis or edema Neuro: nonfocal, patient AA&O x 4, speech intact, no facial droop, moving all extremities on command with equal strength 5/5 Results & Data Results & Data Vital Signs (Past 12 Hours) Vital Signs Temp Pulse Pulse Resp BP Pulse Ox O2 Del Method 08/04/24 19:46 36.4 C L 79 18 123/77 96 Room Air 08/04/24 15:20 37.2 C 90 18 123/76 96 Room Air 08/04/24 13:57 92 H 08/04/24 11:26 37.1 C 89 17 121/73 93 Room Air Laboratory Results Stool was negative for C. difficile GI PCR was negative UA shows evidence of UTI for which patient is on ceftriaxone White count went from 42,000-25,[address] abdomen pelvis negative for any vascular lesion is stable tiny left renal stone PG Care Time/CCT Total # of Minutes Spent Total Time Spent with Patient: Total time spent is greater than 50% in coordination of care (as documented) at patient's floor/unit and/or counseling patient: Coding Level of Care Code 71312 SUB INP/OBS CARE 3/50MIN Diagnoses Nausea vomiting and diarrhea R11.2; R19.7 Acute UTI (urinary tract infection) N39.0 GERD (gastroesophageal reflux disease) K21.9 Diabetes mellitus, type 2 E11.9 Hyperlipidemia E78.5 Sleep apnea G47.30 Time Spent (min) 50
[2024-08-05] MEDS: MELATONIN 3 MG TAB PO PRN (00:48)
[2024-08-05 02:48] LABS: Hematocrit (blood only) 33.6 % (37.0-47.0); Mean Corpuscular Hemoglobin 28.4 pg (25.0-34.0); Mean Corpuscular Hgb Conc 32.7 g/dL (32.0-36.0); Mean Corpuscular Volume 86.6 fL (80.0-100.0); Mean Platelet Volume 11.7 fL (9.4-12.4); Platelet Count 155 K/uL (130-400); RDW Coefficient of Variation 15.7 % (11.5-14.5); RDW Standard Deviation 49.2 fL (36.4-46.3); Red Blood Count 3.88 M/uL (4.20-5.40); White Blood Count 17.97 K/ul (4.8-10.8)
[2024-08-05 03:58] LABS: Albumin Globulin Ratio 1.6 (0.9-2); Albumin Level 3.6 gm/dl (3.4-5.0); BUN Creatinine Ratio 11.6 (10-20); Bilirubin,Total 0.6 mg/dl (0.2-1.0); C Reactive Protein 4.42 mg/dl (0-0.5); Calcium 8.6 mg/dl (8.6-10.3); Creatinine Clr Calc Pharmacy 72.8 ml/min; Globulin 2.2 gm/dl (2.5-4.0); Total Protein 5.8 gm/dl (6.0-8.3)
[2024-08-05 04:02] LABS: Basophils # (auto) 0.07 K/uL (0.00-0.20); Basophils % (auto) 0.4 %; Eosinophils # (auto) 0.23 K/uL (0.00-0.50); Eosinophils % (auto) 1.3 %; Immature Granulocytes # (auto) 0.02 K/uL (0.01-0.20); Immature Granulocytes % (auto) 0.1 %; Lymphocytes # (auto) 13.29 K/uL (1.20-3.40); Monocytes % (auto) 2.8 %; Neutrophils # (auto) 3.86 K/uL (1.40-6.50); Neutrophils % (auto) 21.4 %; Polychromasia 1+; Smudge Cells Present
[2024-08-05 08:31] LABS: Hematocrit (blood only) 35.3 % (37.0-47.0); Hemoglobin 11.6 g/dl (12.0-16.0)
--- NOTE | 2024-08-05 08:54 | Hospitalist Progress Note ---
Date of Service August 05, 2024 Assessment & Plan (1) Acute UTI (urinary tract infection): (2) GERD (gastroesophageal reflux disease): (3) Diabetes mellitus, type 2: (4) Hyperlipidemia: (5) Sleep apnea: Plan 69-year-old female with history of diabetes, hypertension, CLL and GERD pre senting with acute onset upper abdominal pain followed by nausea, vomiting with multiple episodes of watery diarrhea now resolved, infetious etiology ruled out #Nausea/vomiting/diarrhea Question viral illness versus foodborne illness. stool PCR and C. difficile has been negative - GI consult without plans of inpatient intervention - advance diet if tolerate consider dc 08/06 #Acute UTIpatient's urine analysis suggestive of infection e coli uti poa Continue ceftriaxone #GERD patient on omeprazole 20 mg p.o. twice daily Protonix 40 mg p.o. twice daily #Diabetesdiet controlled poc glucoses reviewed and controlled #Hyperlipidemia Continue pravastatin #Hypertension hold lisinopril/hydrochlorothiazide Admission and Anticipated Discharge Date Admission Date: August 03, 2024 Subjective pt doing well eating clears some minor abdominal pain and queasiness no diarrhea Physical Exam Physical Exam: abd is soft and non tender Results & Data Results & Data Vital Signs (Past 12 Hours) Vital Signs Temp Pulse Pulse Resp BP Pulse Ox O2 Del Method 08/05/24 07:49 98.1 F 78 16 114/68 93 Room Air 08/05/24 07:00 77 08/05/24 02:59 97.5 F L 73 16 133/66 97 Room Air 08/04/24 22:01 82 08/04/24 22:00 97.7 F 79 18 132/65 96 Room Air Laboratory Results review cbc review chemistry, augment low potassium PG Care Time/CCT Total # of Minutes Spent Total Time Spent with Patient: Total time spent is greater than 50% in coordination of care (as documented) at patient's floor/unit and/or counseling patient: Coding Level of Care Code 11002 SUB INP/OBS CARE 3/50MIN Diagnoses Acute UTI (urinary tract infection) N39.0 GERD (gastroesophageal reflux disease) K21.9 Diabetes mellitus, type 2 E11.9 Hyperlipidemia E78.5 Sleep apnea G47.30
[2024-08-05] MEDS: MAGNESIUM SULFATE / D5W 1 GM/100 ML BAG IV ONE (09:35)
[2024-08-05] MEDS: POTASSIUM CHLORIDE / WTR 10 MEQ/100 ML PLCT IV SCH (09:35)
[2024-08-05] MEDS: POTASSIUM CHLORIDE CRTAB 20 MEQ TABCR PO SCH (09:35)
--- NOTE | 2024-08-05 11:07 | Gastrointestinal Consultation ---
Date of Consultation August 05, 2024 Assessment & Plan (1) Rectal bleeding: Patient has had no further bleeding. diarrhea, nausea, and vomiting have improved. It is possible that the blood she was seeing was secondary to irritation from diarrhea. hgb stable. CTA unremarkable. - continue to follow hgb/hct. transfuse as needed. - would consider an outpatient colonoscopy to further evaluate the bleeding that she had. - will discuss case further with Dr. Jung, further recommendations to follow. Supervising Physician Co-Signing Physician Notes Sudden onset of abdominal pain cold sweats with nausea and vomiting at [facility]. Subsequently frequent bowel movements then after 3-4 bowel movements blood. Most consistent with ischemic colitis. Patient is having resolution of symptoms no further blood since present. Advance diet can be discharged if tolerating p.o. without further pain or bleeding. Should have an outpatient colonoscopy. History of Present Illness Reason for Consultation: GIB with diarrhea Requesting Physician: Barbara Al MD Attending Physician: Konrad Harrison MD History of Present Illness Patient is a 69 year old female with a history of diabetes, hypertension, CLL, a nd GERD who presented to the ED on 08/03/24 with acute onset upper abdominal pain followed by nausea, vomiting, and multiple episodes of watery diarrhea. Patient was admitted with a UTI and tells me that during her stay she had a few episodes of blood in her stools with the diarrhea. Since admission, her nausea, vomiting, and abdominal pain has improved. she tells me that her last bowel movement did not have blood in it. diarrhea also seems to have improved. Last EGD and colonoscopy were done in 2008. EGD was unremarkable. Colonoscopy shown diverticulosis as well as adhesions. 08/05/24 hgb 11.6, hct 35.3, wbc 17.9, platelets 155. 08/04/24 stool studies unremarkable. 08/03/24 CTA No significant vascular abnormality. No acute abdominal pathology. Stable left renal tiny stone. Allergies Allergy/AdvReac Type Severity Reaction Status Date / Time tetracycline AdvReac Intermediate BLACK & Verified 08/03/24 17:38 BLUE IN JOINTS, LOST USE OF LEGS Home Medications Medication Instructions Recorded Confirmed Type cholecalciferol (vitamin D3) 25 25 mcg PO QAM 09/29/19 08/03/24 History mcg (1,000 unit) tablet (Vitamin D3) lisinopril 10 1 tab PO QAM 09/29/19 08/03/24 History mg-hydrochlorothiazide 12.5 mg tablet (Zestoretic) omeprazole 20 mg capsule,delayed 20 mg PO BID 09/29/19 08/03/24 History release diclofenac sodium 50 mg 50 mg PO BID 09/19/22 08/03/24 History tablet,delayed release duloxetine 30 mg capsule,delayed 30 mg PO DAILY 09/19/22 08/03/24 History release duloxetine 60 mg capsule,delayed 60 mg PO DAILY 09/19/22 08/03/24 History release pravastatin 80 mg tablet 80 mg PO DAILY 09/19/22 08/03/24 History diphenhydramine 25 1 tab PO HS PRN Sleep 08/03/24 08/03/24 History mg-acetaminophen 500 mg tablet (Tylenol PM Extra Strength) oxybutynin chloride 15 mg 15 mg PO DAILY 08/03/24 08/03/24 History tablet,extended release 24 hr Patient History Medical History Chronic back pain Fibromyalgia Stable- chronic pain- generalized pain- no current flares GERD (gastroesophageal reflux disease) Well controlled and stable Diabetes mellitus, type 2 Diet controlled - glucose well controlled Leukemia CLL- under observation- gets checked every 6 months at [facility] in [place] > currently in remission Hyperlipidemia Sleep apnea no longer using cpap> too much congestion and kept waking patient up Surgical History History of esophagogastroduodenoscopy (EGD) History of colonoscopy History of lithotripsy History of partial hysterectomy Family History Grandmother (Paternal) Colon cancer Father Diabetes Sister Diabetes Brother Diabetes Social History Smoking Status: Never smoker Second Hand Exposure: No; Do You Dip or Chew Tobacco: No; Hx Alcohol Use: Yes Alcohol type: beer and wine Hx Substance Use: No Preferred Language: Frisian Communication Ability: Effective Hotbed Operator Required: No Beliefs That Will Affect Care: None Current Living Situation: Spouse and Other Other Information That Helps Us Care for You: No Feels Safe at Home: Yes Safety Concerns: Feels Safe At This Time Assistive Devices: Cane and Glasses Review of Systems Review of Systems: All systems reviewed & are unremarkable except as noted in HPI & below Physical Exam Constitutional: WD/WN, vitals as above Respiratory: normal respiratory effort, lungs clear to auscultation Cardiovascular: Rate/Rhythm: regular rate and regular rhythm Gastrointestinal (Abdomen): normal bowel sounds, soft, nontender, no hepatosplenomegaly Psychiatric: Orientation: alert and oriented x 3 Affect: euthymic affect Results & Data Vital Signs (Past 12 Hours) Vital Signs Temp Pulse Pulse Resp BP Pulse Ox O2 Del Method 08/05/24 07:49 98.1 F 78 16 114/68 93 Room Air 08/05/24 07:00 77 08/05/24 02:59 97.5 F L 73 16 133/66 97 Room Air Coding Level of Care Code 11458 INT INP/OBS CARE 2/55MIN Diagnoses Rectal bleeding K62.5
[2024-08-05 14:45] LABS: Hematocrit (blood only) 35.9 % (37.0-47.0); Hemoglobin 11.6 g/dl (12.0-16.0)
[2024-08-05] MEDS: FEXOFENADINE 60 MG TAB PO ONE (15:07)
[2024-08-05 20:16] LABS: Hemoglobin 11.4 g/dl (12.0-16.0)
[2024-08-06 07:53] VITALS: BP 144/76; RESP 18; TEMP 98.4; O2SAT 97
[2024-08-06 10:02] VITALS: PULSE 82
[2024-08-06] MEDS: PREGABALIN 100 MG CAP PO ONE (10:10)
--- NOTE | 2024-08-06 15:59 | Discharge Summary ---
Discharge Summary Date of Service August 06, 2024 Principal Dx & Hospital Course #1 = Principal Diagnosis (1) Acute UTI (urinary tract infection): (2) GERD (gastroesophageal reflux disease): (3) Diabetes mellitus, type 2: (4) Hyperlipidemia: (5) Sleep apnea: Plan 69-year-old female with history of diabetes, hypertension, CLL and GERD presenting with acute onset upper abdominal pain followed by nausea, vomiting with multiple episodes of watery diarrhea now resolved, infetious etiology ruled out #Nausea/vomiting/diarrhea Question viral illness versus foodborne illness. stool PCR and C. difficile has been negative - GI consult without plans of inpatient intervention - tolerated advancing diet #Acute UTIuncomplicated e coli uti poa Completed 3 days of ceftriaxone home on amoxil #GERD patient on omeprazole 20 mg p.o. twice daily Protonix 40 mg p.o. twice daily #Diabetesdiet controlled poc glucoses reviewed and controlled #Hyperlipidemia Continue pravastatin #Hypertension resume lisinopril/hydrochlorothiazide 2 days after discharge #Fibromyalgia, one dose of lyrica here then pt will restart at home per pcp RX Notes For Next Care Provider check affect of LYrica, completed 3 days iv treatment for e coli uti( bunch sensitive) home on amoxil Admission HPI Per Admitting Provider Valentina Landaverde is a 69yo female with history of CLL, hyperlipidemia, hypertension, GERD, fibromyalgia and diet-controlled diabetes presenting with abdominal pain, nausea/vomiting/diarrhea. Patient was running errands today to help her granddaughter get ready for the prom. she ate a sub from [employer] and drank some iced tea. About an hour later she was shopping at [employer] when she developed diaphoresis and upper abdominal pain. She went to the bathroom and had a normal bowel movement. She had improvement in her abdominal discomfort initially but then it returned. She had another normal BM but the abdominal pain continued - bandlike pain across her upper abdomen and pressure under her ribs. She went outside to get some air and continued to have severe abdominal pain with diaphoresis and some perioral pallor noted by a friend at [employer]. She developed nausea with two episodes of non-bloody vomiting. She drank a little bit of water but continued to have abdominal pain, nausea and dizziness so EMS was called. In the ER she had several episodes of diarrhea. Denies fever, chills, chest pain split the [employer] sub with her and does not have any symptoms. in the ER patient is afebrile, hemodynamically stable Patient still complaining of upper abdominal pain Discharge Exam pleasant, eating breakfast slightly achey Discharge Plan Discharge Items Patient Disposition: Home - Self-Care Reason For Visit: VOMITING, DIARRHEA, ABDOMINAL PAIN Discharge Diagnosis: Viral Gastroenteritis urinary tract infection present on admission Condition on Discharge: Fair Activity: Resume your previous activity Non-emergency contact: Primary Care Provider Call non-emergency contact if: your symptoms worsen Follow-up/Referrals: Sudeep Read PA-C [Primary Care Provider] - (PLEASE CALL YOUR PRIMARY CARE PROVIDER TO SCHEDULE A HOSPITAL FOLLOW-UP APPOINTMENT WITHIN 7-10 DAYS) Diet: Regular Addtl Attending Provider Instructions: it was felt that you did have a gastrointestinal viral infection but also an urinary tract infection present that could have contributed to some of your sym ptoms, you will be given additional two days of antibiotics for your urine infection, start oral antibiotics the evening of discharge Pending Studies at Discharge: No Stand-Alone Forms: My [facility] [employer], Smoking Cessation Medications and DC Order Prescriptions: New amoxicillin 500 mg capsule 1,000 mg PO BID Qty: 10 0RF Continued omeprazole 20 mg capsule,delayed release(DR/EC) 20 mg PO BID cholecalciferol (vitamin D3) [Vitamin D3] 25 mcg (1,000 unit) Tablet 25 mcg PO QAM pravastatin 80 mg tablet 80 mg PO DAILY diclofenac sodium 50 mg tablet,delayed release (DR/EC) 50 mg PO BID duloxetine 30 mg capsule,delayed release(DR/EC) 30 mg PO DAILY Rx Instructions: TOTAL DOSE 90 MG--TAKES WITH 60 MG CAP. duloxetine 60 mg capsule,delayed release(DR/EC) 60 mg PO DAILY Rx Instructions: TOTAL DOSE 90 MG--TAKES WITH 30 MG CAP. oxybutynin chloride 15 mg tablet extended release 24hr 15 mg PO DAILY diphenhydramine-acetaminophen [Tylenol PM Extra Strength] 25-500 mg Tablet 1 tab PO HS PRN (Reason: Sleep) Held lisinopril-hydrochlorothiazide [Zestoretic] 10-12.5 mg tablet 1 tab PO QAM Hold Instructions: Resume on 08/09/24. Discharge Orders: Discharge Order (Routine); Ordered 08/06/24 Ordered By: Konrad Harrison Admission Data Admit Date/Time: 08/03/24 20:04 Attending Provider: Konrad Harrison Admit Provider: Shantelle Cabral Primary Care Provider: Sudeep Read. Other Providers: Shantelle Cabral; Dru Jung Other Interventions: Discharge Summary Assessment (RN) Last Done: 08/06/24 10:01 Hospital Stay Data Consultations 08/03/24 19:43 ED Decision to Admit Stat 08/04/24 14:15 Consult Gastroenterology Routine Diagnostic Imagining Performed 08/03/24 16:38 CTA abdomen pelvis w con [CT angio abdomen pelvis w con] Stat Pending Results Patient Have Any Pending Studies at Discharge: No Discharge Instructions Given to Patient (Per Discharging Provider) it was felt that you did have a gastrointestinal viral infection but also an urinary tract infection present that could have contributed to some of your symptoms, you will be given additional two days of antibiotics for your urine infection, start oral antibiotics the evening of discharge Total Time Total Time Spent Total Time Spent (In Minutes): It required greater than 30 minutes to prepare this patient for discharge. Coding Level of Care Code 17872 INP/OBS DISCH >30 MIN Diagnoses Acute UTI (urinary tract infection) N39.0 GERD (gastroesophageal reflux disease) K21.9 Diabetes mellitus, type 2 E11.9 Hyperlipidemia E78.5 Sleep apnea G47.30
== END 2024-08-06 11:38 | disposition home or self-care (01) | DRG 392 ==
LOC: ED 16:15 → SUATTDRO 20:04 → 2W 20:04

== ENCOUNTER 2024-10-13 10:38 | Inpatient (IN) ==
--- NOTE | 2024-10-13 10:58 | Emergency Department Note ---
Impression & Plan Complicated urinary tract infection, Left flank pain, Leukocytosis, CLL (chronic lymphocytic leukemia) ED Provider Note NAME: MARTIN BARRAGAN AGE: 69 SEX: F : 1955 ARRIVES VIA: Ambulance INFORMANT: Patient ED PROVIDER(S): Ji Wallis MD CHIEF COMPLAINT: Burning urination, left flank pain PLAN: Disposition: Admit MEDICAL DECISION MAKING: The patient is a pleasant 69-year-old woman with a past medical history of CLL, hypertension, hyperlipidemia, GERD, history of recurrent urine infection who presents to the emergency department via EMS for evaluation of left flank pain that has been worsening over the past several days in setting of the patient's report of having burning with urination during that time where she attempted "[id number] UTI medications but felt no improvement. She denies nausea or vomiting. She denies fevers but reports chills. She denies cough, congestion, chest pain or shortness of breath. She denies blood in her urine. She does report a history of obstructing kidney stone remotely. On evaluation the patient is uncomfortable but no distress, afebrile with stable vital signs. She appears clinically dry. She has mild left flank and abdominal discomfort without discrete tenderness. There is no guarding or rebound. WBC 21.7K without neutrophilia or left shift, similar to prior range of values in the setting of history of CLL. Chemistry without metabolic acidosis. BUN is 25 with BUN/creatinine 31 consistent with patient's clinically dry appearance. Lactic acid 1.7, within normal limits. Procalcitonin is not elevated. LFTs are unremarkable. Lipase is not elevated. UA is consistent with infection with positive nitrites, WBCs and 4+ bacteria. CT of the abdomen and pelvis was performed and was negative for acute intra- abdominal process. No evidence of obstructing renal stone or CT evidence of upper infection. Upon evaluation patient did report some additional improvement following IV hydration with 2 L normal saline, IV APAP and initiation of treatment with ceftriaxone following blood cultures. However she reported still feeling lightheaded despite her treatment with hydration and felt associated nausea when attempting to ambulate to the bathroom. Given persistence of symptoms following initiation of treatment patient does agree with plan for admission for further management. Case was discussed with Dr. Bales, [facility] hospitalist, who will evaluate the patient for admission. Further management per admitting team. Triage Nursing notes reviewed and agree them. Prior/external medical records reviewed Vital Signs: reviewed Differential diagnosis: Renal colic, UTI, appendicitis, diverticulitis, mesenteric ischemia, aortic pathology, infections, inflammatory bowel disease, PUD, biliary pathology, as well as other pathologies. ER treatment provided: See below. Diagnostics interpreted by me: Cardiac Monitoring: An order for continuous cardiac monitoring was placed and demonstrated sinus tachycardia, 102 bpm, occasional PVCs. Laboratory studies: See below Imaging studies: See below Consultation(s): Case was discussed with Dr. Bales, [facility] hospitalist, who will evaluate the patient for admission. HPI: Per MDM. ROS: See above HPI for pertinent positives & negatives. A total of 10 systems reviewed and were otherwise negative. VITALS:See Below PHYSICAL EXAMINATION: GENERAL: Awake, alert, uncomfortable-appearing, in no distress HENT: Normocephalic, atraumatic. Oropharynx with dry mucous membranes and otherwise unremarkable. EYES: Normal conjunctiva. Sclera non-icteric. NECK: Supple. No nuchal rigidity. FROM. No JVD. RESPIRATORY: Clear to auscultation. CARDIAC: Tachycardic rate, normal rhythm. Extremities warm and well perfused. Pulses equal. ABDOMEN: Soft, non-distended. Mild left flank and abdominal discomfort without discrete tenderness. There is no guarding or rebound. MUSCULOSKELETAL: Chest examination reveals no tenderness. The back is symmetrical on inspection without obvious abnormality. There is no CVA tenderness to palpation. No joint edema. LOWER EXTREMITIES: Calves are equal size bilaterally and non-tender. No edema. No discoloration. NEURO: Normal sensorium. No sensory or motor deficits noted. SKIN: No rash or jaundice noted. Ji Wallis MD Past Med/Surg History Problem List (Updated 10/14/24 @ 01:05 by Ji Wallis MD) CLL (chronic lymphocytic leukemia) (Acute) Leukocytosis (Acute) Left flank pain (Acute) Complicated urinary tract infection (Acute) Neck pain (Acute) Hypertension Vertigo (Acute) Encounter for pre-operative examination No known health problems Medical History Chronic back pain Fibromyalgia Stable- chronic pain- generalized pain- no current flares GERD (gastroesophageal reflux disease) Well controlled and stable Diabetes mellitus, type 2 Diet controlled - glucose well controlled Leukemia CLL- under observation- gets checked every 6 months at [facility] [place] > currently in remission Hyperlipidemia Sleep apnea no longer using cpap> too much congestion and kept waking patient up Surgical History History of esophagogastroduodenoscopy (EGD) History of colonoscopy History of lithotripsy History of partial hysterectomy Family History Grandmother (Paternal) Colon cancer Father Diabetes Sister Diabetes Brother Diabetes Social History Smoking Status: Former smoker Second Hand Exposure: No; Do You Dip or Chew Tobacco: No; Tobacco Cessation Education Requested by Patient: No Hx Alcohol Use: Yes Alcohol type: beer and wine Hx Substance Use: No Preferred Language: [place] Communication Ability: Effective Print Journalist Required: No Beliefs That Will Affect Care: None Current Living Situation: Significant Other Other Information That Helps Us Care for You: No Feels Safe at Home: Yes Safety Concerns: Feels Safe At This Time Assistive Devices: Cane Allergies Allergies Allergy/AdvReac Type Severity Reaction Status Date / Time tetracycline AdvReac Intermediate BLACK & Verified 08/03/24 17:38 BLUE IN JOINTS, LOST USE OF LEGS Home Meds Home Medications Medication Instructions Recorded Confirmed cholecalciferol (vitamin D3) 25 25 mcg PO QAM 09/29/19 10/13/24 mcg (1,000 unit) tablet (Vitamin D3) lisinopril 10 1 tab PO QAM 09/29/19 10/13/24 mg-hydrochlorothiazide 12.5 mg tablet (Zestoretic) omeprazole 20 mg capsule,delayed 20 mg PO BID 09/29/19 10/13/24 release diclofenac sodium 50 mg 50 mg PO BID 09/19/22 10/13/24 tablet,delayed release duloxetine 30 mg capsule,delayed 30 mg PO DAILY 09/19/22 10/13/24 release duloxetine 60 mg capsule,delayed 60 mg PO DAILY 09/19/22 10/13/24 release pravastatin 80 mg tablet 80 mg PO DAILY 09/19/22 10/13/24 diphenhydramine 25 1 tab PO HS PRN Sleep 08/03/24 10/13/24 mg-acetaminophen 500 mg tablet (Tylenol PM Extra Strength) oxybutynin chloride 15 mg 15 mg PO DAILY 08/03/24 10/13/24 tablet,extended release 24 hr meclizine 12.5 mg tablet 12.5 mg PO BID PRN Dizziness 10/13/24 10/13/24 pregabalin 225 mg capsule 225 mg PO BID 10/13/24 10/13/24 Results & Data (ED) Vital Signs Vital Signs - 24 hr 10/13/24 10:54 10/13/24 10:54 10/13/24 11:16 Temperature 36.9 C 36.9 C Temperature Source Oral Oral Pulse Rate 67 78 Pulse Rate [Apical] 67 Pulse Rate from SpO2 Sensor Pulse Rhythm [Apical] Regular Respiratory Rate 17 17 Respiratory Effort / Characteristics Non-Labored Spontaneous Non-Labored Spontaneous Respiratory Depth Normal Normal Blood Pressure 140/76 Blood Pressure [Right Arm] 140/76 Blood Pressure Mean 97 Blood Pressure Mean [Right Arm] 97 Blood Pressure Position Semi-fowlers Blood Pressure Position [Right Arm] Semi-fowlers Pulse Oximetry 97 97 Oxygen Delivery Method Room Air Room Air Sepsis Recent Fever Within 48 Hours No Sepsis New/Unexplained Change in Mental Status N/A Sepsis Action Taken by Nursing No Action Required 10/13/24 11:30 10/13/24 11:30 10/13/24 12:09 Temperature Temperature Source Pulse Rate 54 L 88 Pulse Rate [Apical] Pulse Rate from SpO2 Sensor 54 L 88 Pulse Rhythm [Apical] Respiratory Rate 24 24 Respiratory Effort / Characteristics Respiratory Depth Blood Pressure 159/71 H Blood Pressure [Right Arm] Blood Pressure Mean 123 Blood Pressure Mean [Right Arm] Blood Pressure Position Blood Pressure Position [Right Arm] Pulse Oximetry 94 93 Oxygen Delivery Method Sepsis Recent Fever Within 48 Hours Sepsis New/Unexplained Change in Mental Status Sepsis Action Taken by Nursing 10/13/24 12:30 10/13/24 12:42 10/13/24 13:18 Temperature Temperature Source Pulse Rate 89 Pulse Rate [Apical] 91 H Pulse Rate from SpO2 Sensor 81 86 Pulse Rhythm [Apical] Respiratory Rate 21 Respiratory Effort / Characteristics Respiratory Depth Blood Pressure Blood Pressure [Right Arm] 141/70 H Blood Pressure Mean Blood Pressure Mean [Right Arm] 93 Blood Pressure Position Blood Pressure Position [Right Arm] Pulse Oximetry 93 92 92 Oxygen Delivery Method Room Air Sepsis Recent Fever Within 48 Hours Sepsis New/Unexplained Change in Mental Status Sepsis Action Taken by Nursing 10/13/24 13:24 10/13/24 13:30 10/13/24 13:51 Temperature Temperature Source Pulse Rate 110 H Pulse Rate [Apical] Pulse Rate from SpO2 Sensor 88 Pulse Rhythm [Apical] Respiratory Rate 19 Respiratory Effort / Characteristics Respiratory Depth Blood Pressure 135/65 Blood Pressure [Right Arm] Blood Pressure Mean 99 Blood Pressure Mean [Right Arm] Blood Pressure Position Blood Pressure Position [Right Arm] Pulse Oximetry 88 L Oxygen Delivery Method Sepsis Recent Fever Within 48 Hours Sepsis New/Unexplained Change in Mental Status Sepsis Action Taken by Nursing 10/13/24 13:57 10/13/24 14:00 10/13/24 14:06 Temperature Temperature Source Pulse Rate 101 H 97 H Pulse Rate [Apical] Pulse Rate from SpO2 Sensor 92 H 97 H Pulse Rhythm [Apical] Respiratory Rate 23 26 H Respiratory Effort / Characteristics Respiratory Depth Blood Pressure 130/80 Blood Pressure [Right Arm] Blood Pressure Mean 111 Blood Pressure Mean [Right Arm] Blood Pressure Position Blood Pressure Position [Right Arm] Pulse Oximetry 91 92 Oxygen Delivery Method Sepsis Recent Fever Within 48 Hours Sepsis New/Unexplained Change in Mental Status Sepsis Action Taken by Nursing 10/13/24 14:24 10/13/24 14:30 10/13/24 15:08 Temperature Temperature Source Pulse Rate 98 H Pulse Rate [Apical] 106 H Pulse Rate from SpO2 Sensor 98 H Pulse Rhythm [Apical] Respiratory Rate 21 22 Respiratory Effort / Characteristics Respiratory Depth Blood Pressure 119/62 Blood Pressure [Right Arm] 111/65 Blood Pressure Mean 84 Blood Pressure Mean [Right Arm] 80 Blood Pressure Position Blood Pressure Position [Right Arm] Pulse Oximetry 92 92 Oxygen Delivery Method Room Air Sepsis Recent Fever Within 48 Hours Sepsis New/Unexplained Change in Mental Status Sepsis Action Taken by Nursing 10/13/24 15:09 10/13/24 15:18 10/13/24 15:42 Temperature Temperature Source Pulse Rate 104 H 102 H 99 H Pulse Rate [Apical] Pulse Rate from SpO2 Sensor 102 H Pulse Rhythm [Apical] Respiratory Rate 19 24 Respiratory Effort / Characteristics Respiratory Depth Blood Pressure Blood Pressure [Right Arm] Blood Pressure Mean Blood Pressure Mean [Right Arm] Blood Pressure Position Blood Pressure Position [Right Arm] Pulse Oximetry 92 Oxygen Delivery Method Room Air Sepsis Recent Fever Within 48 Hours Sepsis New/Unexplained Change in Mental Status Sepsis Action Taken by Nursing 10/13/24 16:00 10/13/24 16:00 10/13/24 16:24 Temperature Temperature Source Pulse Rate 100 H 101 H Pulse Rate [Apical] Pulse Rate from SpO2 Sensor Pulse Rhythm [Apical] Respiratory Rate 24 24 Respiratory Effort / Characteristics Respiratory Depth Blood Pressure 125/62 Blood Pressure [Right Arm] Blood Pressure Mean 73 Blood Pressure Mean [Right Arm] Blood Pressure Position Blood Pressure Position [Right Arm] Pulse Oximetry Oxygen Delivery Method Sepsis Recent Fever Within 48 Hours Sepsis New/Unexplained Change in Mental Status Sepsis Action Taken by Nursing 10/13/24 16:31 10/13/24 16:33 10/13/24 16:57 Temperature Temperature Source Pulse Rate 100 H 98 H Pulse Rate [Apical] Pulse Rate from SpO2 Sensor Pulse Rhythm [Apical] Respiratory Rate 24 24 Respiratory Effort / Characteristics Respiratory Depth Blood Pressure 121/73 Blood Pressure [Right Arm] Blood Pressure Mean 83 Blood Pressure Mean [Right Arm] Blood Pressure Position Blood Pressure Position [Right Arm] Pulse Oximetry Oxygen Delivery Method Sepsis Recent Fever Within 48 Hours Sepsis New/Unexplained Change in Mental Status Sepsis Action Taken by Nursing 10/13/24 17:00 Temperature Temperature Source Pulse Rate Pulse Rate [Apical] Pulse Rate from SpO2 Sensor Pulse Rhythm [Apical] Respiratory Rate Respiratory Effort / Characteristics Respiratory Depth Blood Pressure 97/77 L Blood Pressure [Right Arm] Blood Pressure Mean 80 Blood Pressure Mean [Right Arm] Blood Pressure Position Blood Pressure Position [Right Arm] Pulse Oximetry Oxygen Delivery Method Sepsis Recent Fever Within 48 Hours Sepsis New/Unexplained Change in Mental Status Sepsis Action Taken by Nursing Laboratory Data Attestation: I reviewed the patient's lab results. 10/13/24 10:50 10/13/24 10:50 Lab Results 10/13/24 10/13/24 10/13/24 Range/Units 10:50 11:08 11:18 WBC 21.73 H (4.8-10.8) K/ul RBC 4.51 (4.20-5.40) M/uL Hgb 12.9 (12.0-16.0) g/dl POC Hgb 13.6 (12.0-16.0) g/dl Hct 39.8 (37.0-47.0) % POC Hct 40 (37-47) % MCV 88.2 (80.0-100.0) fL MCH 28.6 (25.0-34.0) pg MCHC 32.4 (32.0-36.0) g/dL RDW Std Deviation 47.1 H (36.4-46.3) fL RDW Coeff of Maynor 14.6 H (11.5-14.5) % Plt Count 165 (130-400) K/uL MPV 11.9 (9.4-12.4) fL Immature Gran % (Auto) 0.2 % Neut % (Auto) 18.9 % Lymph % (Auto) 78.6 % [place] % (Auto) 0.8 % Eos % (Auto) 1.2 % Baso % (Auto) 0.3 % Neut # (Auto) 4.10 (1.40-6.50) K/uL Lymph # (Auto) 17.08 H (1.20-3.40) K/uL [place] # (Auto) 0.17 (0.11-0.59) K/uL Eos # (Auto) 0.27 (0.00-0.50) K/uL Baso # (Auto) 0.07 (0.00-0.20) K/uL Immature Gran # (Auto) 0.04 (0.01-0.20) K/uL Smudge Cells Present PT 11.0 (9.0-12.0) Seconds INR 1.0 (0.9-1.1) POC Sodium 140 (135-144) mmol/L Sodium 140 (136-145) mmol/L POC Potassium 4.0 (3.3-5.0) mmol/L Potassium 3.8 (3.5-5.1) mmol/L POC Chloride 103 (101-112) mmol/L Chloride 104 (98-107) mmol/L Carbon Dioxide 29 (21-32) mmol/L POC Total CO2 28 (24-31) mmol/L Anion Gap 7 (3-11) POC Anion Gap 13.0 L (16-25) mmol/L POC BUN 25 H (7-18) mg/dl BUN 25 H (6-23) mg/dl Creatinine 0.80 (0.6-1.2) mg/dl POC Creatinine 0.9 (0.6-1.3) mg/dl Est Cr Clr Drug Dosing 64.0 ml/min eGFR 78.72 BUN/Creatinine Ratio 31.3 H (10-20) Glucose 127 H (70-99(Fasting)) mg/dl POC Glucose (other) 125 H (70-99) mg/dl Lactate (0.4-2.0) mmol/L Calcium 9.0 (8.6-10.3) mg/dl POC Ioniz Calcium Ga 1.12 (1.12-1.32) mmol/l Total Bilirubin 0.7 (0.2-1.0) mg/dl AST 13 (13-39) U/L ALT 10 (7-52) U/L Alkaline Phosphatase 64 (34-104) U/L Total Protein 6.8 (6.0-8.3) gm/dl Albumin 4.2 (3.4-5.0) gm/dl Globulin 2.6 (2.5-4.0) gm/dl Albumin/Globulin Ratio 1.6 (0.9-2) Lipase 8 L (11-82) U/L Procalcitonin < 0.02 (0-0.5) ng/ml Urine Color Yellow Urine Appearance Cloudy A (Clear) Urine pH 6.0 (4.5-7.5) Ur Specific [place] 1.015 (1.000-1.030) Urine Protein 1+ H (Negative) Urine Glucose (UA) Negative (Negative) Urine Ketones Trace H (Negative) Urine Blood 3+ H (Negative) Urine Nitrite Positive A (Negative) Urine Bilirubin Negative (Negative) Urine Urobilinogen Negative (Negative) Ur Leukocyte Esterase 3+ H (Negative) Urine WBC (Auto) >50 H (0-5) /hpf Urine RBC (Auto) >20 H (0-2) /hpf U Hyaline Cast (Auto) 0-2 (0-2) /lpf U Epithel Cells (Auto) 3-5 H (0-2) /hpf Urine Bacteria (Auto) 4+ H (None Seen) Urine Comment Enterobacterales (PCR) (NotDetected) E. coli (PCR) (NotDetected) mcr-1 Colistin Res Gene PCR (NotDetected) blaIMP Car res Gene PCR (NotDetected) KPC-Carbap Res Gene PCR (NotDetected) blaNDM Car Res Gene PCR (NotDetected) OXA-48 Carbapenem Resis Gene (PCR) (NotDetected) blaVIM Car Res Gene PCR (NotDetected) CTX-M Gene Resistance (PCR) (NotDetected) Bld Cult ID Panel PCR (NotDetected) 10/13/24 10/13/24 Range/Units 11:51 12:07 WBC (4.8-10.8) K/ul RBC (4.20-5.40) M/uL Hgb (12.0-16.0) g/dl POC Hgb (12.0-16.0) g/dl Hct (37.0-47.0) % POC Hct (37-47) % MCV (80.0-100.0) fL MCH (25.0-34.0) pg MCHC (32.0-36.0) g/dL RDW Std Deviation (36.4-46.3) fL RDW Coeff of Maynor (11.5-14.5) % Plt Count (130-400) K/uL MPV (9.4-12.4) fL Immature Gran % (Auto) % Neut % (Auto) % Lymph % (Auto) % [place] % (Auto) % Eos % (Auto) % Baso % (Auto) % Neut # (Auto) (1.40-6.50) K/uL Lymph # (Auto) (1.20-3.40) K/uL [place] # (Auto) (0.11-0.59) K/uL Eos # (Auto) (0.00-0.50) K/uL Baso # (Auto) (0.00-0.20) K/uL Immature Gran # (Auto) (0.01-0.20) K/uL Smudge Cells PT (9.0-12.0) Seconds INR (0.9-1.1) POC Sodium (135-144) mmol/L Sodium (136-145) mmol/L POC Potassium (3.3-5.0) mmol/L Potassium (3.5-5.1) mmol/L POC Chloride (101-112) mmol/L Chloride (98-107) mmol/L Carbon Dioxide (21-32) mmol/L POC Total CO2 (24-31) mmol/L Anion Gap (3-11) POC Anion Gap (16-25) mmol/L POC BUN (7-18) mg/dl BUN (6-23) mg/dl Creatinine (0.6-1.2) mg/dl POC Creatinine (0.6-1.3) mg/dl Est Cr Clr Drug Dosing ml/min eGFR BUN/Creatinine Ratio (10-20) Glucose (70-99(Fasting)) mg/dl POC Glucose (other) (70-99) mg/dl Lactate 1.7 (0.4-2.0) mmol/L Calcium (8.6-10.3) mg/dl POC Ioniz Calcium Ga (1.12-1.32) mmol/l Total Bilirubin (0.2-1.0) mg/dl AST (13-39) U/L ALT (7-52) U/L Alkaline Phosphatase (34-104) U/L Total Protein (6.0-8.3) gm/dl Albumin (3.4-5.0) gm/dl Globulin (2.5-4.0) gm/dl Albumin/Globulin Ratio (0.9-2) Lipase (11-82) U/L Procalcitonin (0-0.5) ng/ml Urine Color Urine Appearance (Clear) Urine pH (4.5-7.5) Ur Specific [place] (1.000-1.030) Urine Protein (Negative) Urine Glucose (UA) (Negative) Urine Ketones (Negative) Urine Blood (Negative) Urine Nitrite (Negative) Urine Bilirubin (Negative) Urine Urobilinogen (Negative) Ur Leukocyte Esterase (Negative) Urine WBC (Auto) (0-5) /hpf Urine RBC (Auto) (0-2) /hpf U Hyaline Cast (Auto) (0-2) /lpf U Epithel Cells (Auto) (0-2) /hpf Urine Bacteria (Auto) (None Seen) Urine Comment Enterobacterales (PCR) DETECTED A (NotDetected) E. coli (PCR) DETECTED A (NotDetected) mcr-1 Colistin Res Gene PCR Not Detected (NotDetected) blaIMP Car res Gene PCR Not Detected (NotDetected) KPC-Carbap Res Gene PCR Not Detected (NotDetected) blaNDM Car Res Gene PCR Not Detected (NotDetected) OXA-48 Carbapenem Resis Gene (PCR) Not Detected (NotDetected) blaVIM Car Res Gene PCR Not Detected (NotDetected) CTX-M Gene Resistance (PCR) Not Detected (NotDetected) Bld Cult ID Panel PCR See PCR Comment (NotDetected) Administered Medications Acetaminophen (Acetaminophen 325 Mg Tab) 650 mg PO Q4H PRN PRN Reason: Pain or Fever Stop: 11/12/24 18:09 Last Admin: 10/13/24 22:27 Dose: 650 mg Documented By: NAHOMY Heparin Sodium (Porcine) (Heparin Sod 5,000 Unit/0.5 Ml Vial) 5,000 units SQ Q12 LEONILA Stop: 11/12/24 20:59 Last Admin: 10/13/24 20:06 Dose: 5,000 units Documented By: NAHOMY Melatonin (Melatonin 3 Mg Tab) 3 mg PO HS PRN PRN Reason: Sleep Stop: 11/12/24 18:09 Last Admin: 10/13/24 22:27 Dose: 3 mg Documented By: NAHOMY Pantoprazole Sodium (Pantoprazole 40 Mg Tab) 40 mg PO BID LEONILA Stop: 11/12/24 20:59 Last Admin: 10/13/24 20:06 Dose: 40 mg Documented By: NAHOMY Pregabalin (Pregabalin 75 Mg Cap) 225 mg PO BID LEONILA Stop: 11/12/24 20:59 Last Admin: 10/13/24 20:06 Dose: 225 mg Documented By: NAHOMY Discontinued Medications Sodium Chloride (Nss) 1,000 mls @ 999 mls/hr IV .Q1H1M ONE Stop: 10/13/24 11:56 Last Infusion: 10/13/24 12:55 Dose: Infused Documented By: Admin: 10/13/24 11:11 Dose: 999 mls/hr Documented By: JESI Acetaminophen (Ofirmev) 1,000 mg in 100 mls @ 400 mls/hr IV NOW STA Stop: 10/13/24 11:10 Last Infusion: 10/13/24 11:44 Dose: Infused Documented By: Admin: 10/13/24 11:07 Dose: 400 mls/hr Documented By: JESI Sodium Chloride (Nss) 1,000 mls @ 999 mls/hr IV .Q1H1M ONE Stop: 10/13/24 12:35 Last Infusion: 10/13/24 14:44 Dose: Infused Documented By: Admin: 10/13/24 12:29 Dose: 999 mls/hr Documented By: JESI Ceftriaxone Sodium (Rocephin) 2,000 mg in 50 mls @ 100 mls/hr IV NOW STA Stop: 10/13/24 12:04 Last Infusion: 10/13/24 12:57 Dose: Infused Documented By: Admin: 10/13/24 12:28 Dose: 100 mls/hr Documented By: JESI Ioversol (Optiray 320 100ml) 93 ml IV ONCE ONE Stop: 10/13/24 12:21 Last Admin: 10/13/24 12:21 Dose: 93 ml Documented By: KAEL Ondansetron HCl (Ondansetron Inj 2 Mg/Ml 2 Ml Vial) 4 mg IV NOW STA Stop: 10/13/24 14:20 Last Admin: 10/13/24 14:41 Dose: 4 mg Documented By: DHARA Imaging Data Radiologist's Impression: Abdomen/Pelvis CT 10/13/24 11:35 Clinical History: Left flank pain Technique: Axial computed tomography images were obtained of the abdomen and pelvis after the administration of intravenous contrast. Comparison is made to the prior CT dated 08/03/2024. Findings: The liver is overall of normal size, attenuation, and contour with no sign of cirrhosis or significant fatty infiltration. No liver mass lesion is seen. The portal vein is patent. The gallbladder has been removed. Mild bile duct dilatation is likely due to the postcholecystectomy state The spleen is of normal size. No focal splenic lesion is evident. The pancreas appears normal with no sign of acute or chronic pancreatitis and no mass lesion noted. The pancreatic duct is of normal caliber. The adrenal glands appear unremarkable. There is a 3-4 mm left renal calculus. There is no hydronephrosis or perinephric stranding. No renal mass lesion is identified. There are small bilateral renal cysts, measuring up to 3 mm in size The aorta is of normal caliber. No abdominal adenopathy is seen. There is a small hiatal hernia. There is no sign of small bowel obstruction. The colon appears unremarkable. The appendix appears normal also. No free intraperitoneal fluid or air is identified. No distal ureteral or bladder calculi are seen. The bladder is decompressed. The iliac arteries are of normal caliber. No pelvic adenopathy is noted. The uterus has been removed The lungs bases appear clear. Lumbar scoliosis and degenerative disc disease is seen. No fracture is identified. No focal osseous lesion is seen Impression: 1. No definite acute pathology 2. Small bilateral renal cysts and nonobstructing left renal calculus 3. Small hiatal hernia Electronically signed by Narciso Mae 10-13-2024 13:29 PM Discharge Plan Visit Data Chief Complaint: Flank Pain Stated Complaint: BACK PAIN ED Provider: Ji Wallis Discharge Problem: Complicated urinary tract infection, Left flank pain, Leukocytosis, CLL (chronic lymphocytic leukemia) Patient Disposition: Admitted As Inpatient Condition: Fair Discharge Instructions Interventions: ED Discharge Assessment Last Done: 10/13/24 17:47 Discharge Problem: Leukocytosis Qualifiers: Leukocytosis type: unspecified Qualified Code(s): D72.829 - Elevated white blood cell count, unspecified
[2024-10-13] MEDS: ACETAMINOPHEN 1,000 MG/100 ML VIAL IV STA (11:07)
[2024-10-13] MEDS: SODIUM CHLORIDE 0.9% 1,000 ML IV ONE ×2 (11:11→12:29)
[2024-10-13 11:14] LABS: Hematocrit (blood only) 39.8 % (37.0-47.0); Hemoglobin 12.9 g/dl (12.0-16.0); Mean Corpuscular Hemoglobin 28.6 pg (25.0-34.0); Mean Corpuscular Volume 88.2 fL (80.0-100.0); Platelet Count 165 K/uL (130-400); RDW Standard Deviation 47.1 fL (36.4-46.3); Red Blood Count 4.51 M/uL (4.20-5.40); White Blood Count 21.73 K/ul (4.8-10.8)
[2024-10-13 11:36] LABS: INR 1.0 (0.9-1.1); Prothrombin Time 11.0 Seconds (9.0-12.0)
[2024-10-13 11:37] LABS: Alanine Aminotransferase 10.0 U/L (7-52); Albumin Globulin Ratio 1.6 (0.9-2); Alkaline Phosphatase 64.0 U/L (34-104); Anion Gap 7.0 (3-11); Bilirubin,Total 0.7 mg/dl (0.2-1.0); Blood Urea Nitrogen 25.0 mg/dl (6-23); Calcium 9.0 mg/dl (8.6-10.3); Carbon Dioxide 29.0 mmol/L (21-32); Chloride 104.0 mmol/L (98-107); Creatinine Clr Calc Pharmacy 64.0 ml/min; Globulin 2.6 gm/dl (2.5-4.0); Glucose 127.0 mg/dl (70-99(Fasting)); Lipase 8.0 U/L (11-82); Potassium 3.8 mmol/L (3.5-5.1); Sodium 140.0 mmol/L (136-145); Total Protein 6.8 gm/dl (6.0-8.3)
[2024-10-13 11:43] LABS: Appearance Urine Cloudy (Clear); Bacteria Urine Automated 4+ (None Seen); Cast Urine Automated 0-2 /lpf (0-2); Glucose Urine UA Negative (Negative); RBC Urine Automated >20 /hpf (0-2); WBC Urine Automated >50 /hpf (0-5)
[2024-10-13 12:07] LABS: Immature Granulocytes # (auto) 0.04 K/uL (0.01-0.20); Immature Granulocytes % (auto) 0.2 %; Smudge Cells Present
[2024-10-13] MEDS: OPTIRAY 320 100ml IV ONE (12:21)
[2024-10-13] MEDS: cefTRIAXone SODIUM 2,000 MG/50 ML BAG IV STA (12:28)
--- NOTE | 2024-10-13 13:29 | CT Scan Report ---
Clinical History: Left flank pain Technique: Axial computed tomography images were obtained of the abdomen and pelvis after the administration of intravenous contrast. Comparison is made to the prior CT dated 08/03/2024. Findings: The liver is overall of normal size, attenuation, and contour with no sign of cirrhosis or significant fatty infiltration. No liver mass lesion is seen. The portal vein is patent. The gallbladder has been removed. Mild bile duct dilatation is likely due to the postcholecystectomy state The spleen is of normal size. No focal splenic lesion is evident. The pancreas appears normal with no sign of acute or chronic pancreatitis and no mass lesion noted. The pancreatic duct is of normal caliber. The adrenal glands appear unremarkable. There is a 3-4 mm left renal calculus. There is no hydronephrosis or perinephric stranding. No renal mass lesion is identified. There are small bilateral renal cysts, measuring up to 3 mm in size The aorta is of normal caliber. No abdominal adenopathy is seen. There is a small hiatal hernia. There is no sign of small bowel obstruction. The colon appears unremarkable. The appendix appears normal also. No free intraperitoneal fluid or air is identified. No distal ureteral or bladder calculi are seen. The bladder is decompressed. The iliac arteries are of normal caliber. No pelvic adenopathy is noted. The uterus has been removed The lungs bases appear clear. Lumbar scoliosis and degenerative disc disease is seen. No fracture is identified. No focal osseous lesion is seen Impression: 1. No definite acute pathology 2. Small bilateral renal cysts and nonobstructing left renal calculus 3. Small hiatal hernia Electronically signed by Narciso Mae 10-13-2024 13:29 PM
[2024-10-13] MEDS: ONDANSETRON INJ 2 MG/ML 2 ML VIAL IV STA (14:41)
--- NOTE | 2024-10-13 16:12 | History & Physical Report ---
Date of Service October 13, 2024 Assessment & Plan Plan 69 yo F with PMHx of CLL, HTN, HLD, vertigo, GERD, h/o recurrent UTI brought to [facility] for evaluation of left flank pain. #Acute cystitis - h/o recurrent UTI - previously grew bunch-sens e coli - s/p CTX in the ED, cont at this time - f/u UCx - CT abd / pelvis neg for obstructing stone (non obstructing stone present), abscess, etc #HTN - hold BP meds at this time #HLD - cont statin #Vertigo - cont meclizine #CLL - follows with oncology, currently not on treatment #GERD - cont ppi #Anxiety / Depression - cont home meds DVT ppx: hep subq History of Present Illness Chief Complaint: Pain in the left lower back / flank and burning with urination Primary Care Provider: Sudeep Read PA-C 69 yo F with PMHx of CLL, HTN, HLD, vertigo, GERD, h/o recurrent UTI brought to [facility] for evaluation of left flank pain. Pt stated that her symptoms started about 10 days ago with burning with urination. She was using AZO over the counter, which was helping while she is on it but as soon as she stopped, her symptoms came back. The last few days she has developed low back / flank pain, L > R. She denied fever / chills, though she is currently under 4-5 blankets in the ED. She also noticed that her vertigo has worsened during this time. She noted that she fell about 1 week ago. She was holding on to a fence while watering plants but when she moved to a different railing, she didn't grab right away and she fell. She could not get up and had to call family to help her get up. She states she feels well otherwise. Allergies Allergy/AdvReac Type Severity Reaction Status Date / Time tetracycline AdvReac Intermediate BLACK & Verified 08/03/24 17:38 BLUE IN JOINTS, LOST USE OF LEGS Home Medications Medication Instructions Recorded Confirmed Type cholecalciferol (vitamin D3) 25 25 mcg PO QAM 09/29/19 10/13/24 History mcg (1,000 unit) tablet (Vitamin D3) lisinopril 10 1 tab PO QAM 09/29/19 10/13/24 History mg-hydrochlorothiazide 12.5 mg tablet (Zestoretic) omeprazole 20 mg capsule,delayed 20 mg PO BID 09/29/19 10/13/24 History release diclofenac sodium 50 mg 50 mg PO BID 09/19/22 10/13/24 History tablet,delayed release duloxetine 30 mg capsule,delayed 30 mg PO DAILY 09/19/22 10/13/24 History release duloxetine 60 mg capsule,delayed 60 mg PO DAILY 09/19/22 10/13/24 History release pravastatin 80 mg tablet 80 mg PO DAILY 09/19/22 10/13/24 History diphenhydramine 25 1 tab PO HS PRN Sleep 08/03/24 10/13/24 History mg-acetaminophen 500 mg tablet (Tylenol PM Extra Strength) oxybutynin chloride 15 mg 15 mg PO DAILY 08/03/24 10/13/24 History tablet,extended release 24 hr meclizine 12.5 mg tablet 12.5 mg PO BID PRN Dizziness 10/13/24 10/13/24 History pregabalin 225 mg capsule 225 mg PO BID 10/13/24 10/13/24 History Past Med/Surg History Problem List (Updated 09/06/24 @ 00:06 by Igor Stewart) Neck pain (Acute) Hypertension Vertigo (Acute) Encounter for pre-operative examination No known health problems Medical History Chronic back pain Fibromyalgia Stable- chronic pain- generalized pain- no current flares GERD (gastroesophageal reflux disease) Well controlled and stable Diabetes mellitus, type 2 Diet controlled - glucose well controlled Leukemia CLL- under observation- gets checked every 6 months at [facility] in [place] > currently in remission Hyperlipidemia Sleep apnea no longer using cpap> too much congestion and kept waking patient up Surgical History History of esophagogastroduodenoscopy (EGD) History of colonoscopy History of lithotripsy History of partial hysterectomy Family History Grandmother (Paternal) Colon cancer Father Diabetes Sister Diabetes Brother Diabetes Social History Smoking Status: Never smoker Second Hand Exposure: No; Do You Dip or Chew Tobacco: No; Hx Alcohol Use: Yes Alcohol type: beer and wine Hx Substance Use: No Preferred Language: Yoruba Communication Ability: Effective Dietary Services Manager Required: No Beliefs That Will Affect Care: None Current Living Situation: Spouse and Other Feels Safe at Home: Yes Assistive Devices: Cane and Glasses Review of Systems Review of Systems: Comprehensive ROS neg Physical Exam Physical Exam: Gen: no acute distress, lying in bed comfortable, she does appear ill HEENT: NC/AT, MMM Lungs: nonlabored breathing, CTAB CVS: s1s2nl, RRR Abd: nl bowel sounds, soft, NT / ND : no chavarria, left flank TTP Ext: no edema Neuro: AAOx3 Psych: calm cooperative Results & Data Results & Data Vital Signs (Past 12 Hours) Vital Signs Temp Pulse Pulse Resp BP BP Pulse Ox 10/13/24 16:00 125/62 10/13/24 16:00 100 H 24 10/13/24 15:42 99 H 24 10/13/24 15:18 102 H 10/13/24 15:09 104 H 19 92 10/13/24 15:08 106 H 22 111/65 92 10/13/24 14:30 119/62 10/13/24 14:24 98 H 21 92 10/13/24 14:06 97 H 26 H 92 10/13/24 14:00 130/80 10/13/24 13:57 101 H 23 91 10/13/24 13:51 110 H 19 10/13/24 13:30 135/65 10/13/24 13:24 88 L 10/13/24 13:18 92 10/13/24 12:42 89 21 92 10/13/24 12:30 91 H 141/70 H 93 10/13/24 12:09 88 24 93 10/13/24 11:30 159/71 H 10/13/24 11:30 54 L 24 94 10/13/24 11:16 78 10/13/24 10:54 36.9 C 67 17 140/76 97 10/13/24 10:54 36.9 C 67 17 140/76 97 O2 Del Method 10/13/24 16:00 10/13/24 16:00 10/13/24 15:42 10/13/24 15:18 10/13/24 15:09 Room Air 07/20/25 15:08 Room Air 10/13/24 14:30 10/13/24 14:24 10/13/24 14:06 10/13/24 14:00 10/13/24 13:57 10/13/24 13:51 10/13/24 13:30 10/13/24 13:24 10/13/24 13:18 10/13/24 12:42 10/13/24 12:30 Room Air 10/13/24 12:09 10/13/24 11:30 10/13/24 11:30 10/13/24 11:16 10/13/24 10:54 Room Air 10/13/24 10:54 Room Air PG Care Time/CCT Total # of Minutes Spent Total Time Spent with Patient: Total time spent is greater than 50% in coordination of care (as documented) at patient's floor/unit and/or counseling patient: Coding
[2024-10-13] MEDS: PREGABALIN 75 MG CAP PO SCH (20:06)
[2024-10-13] MEDS: HEPARIN SOD 5,000 UNIT/0.5 ML VIAL SQ SCH (20:06)
[2024-10-13 21:39] LABS: A calco-baum cmplx NotReported Not Detected (NotDetected); Bact fragilis Not Reported Not Detected (NotDetected); Blood Culture Id Panel See PCR Comment (NotDetected); C auris Not Reported Not Detected (NotDetected); CTX-M Resistant Gene Not Detected (NotDetected); Calbicans Not Reported Not Detected (NotDetected); Candida glabrata Not Reported Not Detected (NotDetected); Candida krusei Not Reported Not Detected (NotDetected); Cneoformans/gatti Not Reported Not Detected (NotDetected); Cparapsilosis Not Reported Not Detected (NotDetected); Ctropicalis Not Reported Not Detected (NotDetected); E cloacae compx Not Reported Not Detected (NotDetected); Efaecalis Not Reported Not Detected (NotDetected); Efaecium Not Reported Not Detected (NotDetected); Enterobacterales DETECTED (NotDetected); Enterobacterales Not Reported DETECTED (NotDetected); Escherichia coli Not Reported DETECTED (NotDetected); H influenzae Not Reported Not Detected (NotDetected); IMP Resistant Gene Not Detected (NotDetected); K aerogenes Not Reported Not Detected (NotDetected); KPC Resistant Gene Not Detected (NotDetected); Koxytoca Not Reported Not Detected (NotDetected); Kpneumoniae grp Not Reported Not Detected (NotDetected); Lmonocyt Not Reported Not Detected (NotDetected); N meningitidis Not Reported Not Detected (NotDetected); NDM Resistant Gene Not Detected (NotDetected); OXA 48 Like Resistant Gene Not Detected (NotDetected); P aeruginosa Not Reported Not Detected (NotDetected); Proteus spp Not Reported Not Detected (NotDetected); Salmonella spp Not Reported Not Detected (NotDetected); Staph lugdunensis Not Reported Not Detected (NotDetected); Staph spp. Not Reported Not Detected (NotDetected); Staphaureus Not Reported Not Detected (NotDetected); Staphepi Not Reported Not Detected (NotDetected); Stenmaltophilia Not Reported Not Detected (NotDetected); Strep agal(GrpB) Not Reported Not Detected (NotDetected); Strep pneum Not Reported Not Detected (NotDetected); Strep pyog (GrpA) Not Reported Not Detected (NotDetected); Strep spp Not Reported Not Detected (NotDetected); VIM Resistant Gene Not Detected (NotDetected); mcr-1 Colistin Resistant Gene Not Detected (NotDetected)
[2024-10-13] MEDS: MELATONIN 3 MG TAB PO PRN (22:27)
[2024-10-13] MEDS: ACETAMINOPHEN 325 MG TAB PO PRN (22:27)
[2024-10-14 06:09] LABS: Hematocrit (blood only) 36.2 % (37.0-47.0); Hemoglobin 11.6 g/dl (12.0-16.0); Mean Corpuscular Hemoglobin 28.6 pg (25.0-34.0); Mean Corpuscular Volume 89.4 fL (80.0-100.0); Platelet Count 163 K/uL (130-400); RDW Standard Deviation 48.9 fL (36.4-46.3); Red Blood Count 4.05 M/uL (4.20-5.40); White Blood Count 26.77 K/ul (4.8-10.8)
[2024-10-14 06:31] LABS: Anion Gap 7.0 (3-11); Blood Urea Nitrogen 22.0 mg/dl (6-23); Calcium 8.0 mg/dl (8.6-10.3); Carbon Dioxide 26.0 mmol/L (21-32); Chloride 106.0 mmol/L (98-107); Creatinine Clr Calc Pharmacy 65.3 ml/min; Glucose 101.0 mg/dl (70-99(Fasting)); Magnesium 1.9 mg/dl (1.7-2.4); Potassium 3.6 mmol/L (3.5-5.1); Sodium 139.0 mmol/L (136-145)
[2024-10-14] MEDS: MECLIZINE 12.5 MG TAB PO PRN (07:29)
[2024-10-14] MEDS: OXYBUTYNIN CHLORIDE XL 5 MG TABCR PO SCH (08:44)
[2024-10-14] MEDS: PRAVASTATIN SOD 40 MG TAB PO SCH (08:44)
[2024-10-14] MEDS: cefTRIAXone SODIUM 2,000 MG/50 ML BAG IV SCH (11:31)
[2024-10-14] MEDS ORDERED: cefTRIAXone SODIUM 1,000 MG/50 ML BAG IV SCH (12:00)
--- NOTE | 2024-10-14 13:09 | Hospitalist Progress Note ---
Date of Service October 14, 2024 Assessment & Plan (1) Bacteremia: (2) Complicated urinary tract infection: Plan This is a 69 year old female with past medical history of CLL, HTN who presented to the ED on 10/13/2024 with a chief complaint of left flank pain. 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 Baseline WBC ranges from ~20-27 BMP stable renal function & electrolytes Procal & Lactate negative UC & BC both + for E. Coli, sensitivities pending Continue IV Rocephin. Febrile on AM of 10/14 - s/p Tylenol w/ improvement. Continue Tylenol prn for pain/fever #HTN BP normotensive currently Hold Lisinopril-HCTZ #HLD - Continue statin #Vertigo - Continue Meclizine prn #CLL - follows w/ oncology. Not on active tx #GERD - continue PPI #Anxiety/depression - Continue Duloxetine DVT prophylaxis: Heparin Code: full Admission and Anticipated Discharge Date Admission Date: October 13, 2024 Subjective Valentina was seen and examined this morning. She reports she is feeling fatigued and experiencing low flank pain. Denied any urinary urgency or frequency this AM. Denied CP or SOB. Physical Exam Constitutional: WD/WN, vitals as above Eyes: PERRL, conjunctivae normal, anicteric sclerae Respiratory: normal respiratory effort, lungs clear to auscultation Cardiovascular: RRR, no murmur, no edema Gastrointestinal (Abdomen): normal bowel sounds, soft, nontender, no hepatosplenomegaly Neurologic: PERRL, EOMI, accommodation nl, no face palsy, no dysarthria Psychiatric: A+Ox3, euthymic affect Results & Data Results & Data Vital Signs (Past 12 Hours) Vital Signs Temp Pulse Resp BP Pulse Ox O2 Del Method O2 Flow Rate 10/14/24 11:00 36.7 C 69 21 101/65 93 Nasal Cannula 1 10/14/24 08:41 36.9 C 10/14/24 08:00 Nasal Cannula 2 10/14/24 07:18 38 C H 85 21 114/69 92 Nasal Cannula 2 10/14/24 07:00 86 L Room Air 10/14/24 03:58 37.2 C 77 20 135/71 92 Room Air PG Care Time/CCT Total # of Minutes Spent Total Time Spent with Patient: Total time spent is greater than 50% in coordination of care (as documented) at patient's floor/unit and/or counseling patient: Coding Level of Care Code 40952 SUB INP/OBS CARE 2MIN Diagnoses Bacteremia R78.81 Complicated urinary tract infection N39.0
[2024-10-14] MEDS: ONDANSETRON INJ 2 MG/ML 2 ML VIAL IV PRN (19:19)
[2024-10-15 06:27] LABS: Hematocrit (blood only) 33.8 % (37.0-47.0); Hemoglobin 10.9 g/dl (12.0-16.0); Mean Corpuscular Hemoglobin 28.6 pg (25.0-34.0); Mean Corpuscular Volume 88.7 fL (80.0-100.0); Platelet Count 135 K/uL (130-400); RDW Standard Deviation 48.0 fL (36.4-46.3); Red Blood Count 3.81 M/uL (4.20-5.40); White Blood Count 17.37 K/ul (4.8-10.8)
[2024-10-15 06:52] LABS: Anion Gap 6.0 (3-11); Blood Urea Nitrogen 17.0 mg/dl (6-23); Calcium 8.3 mg/dl (8.6-10.3); Carbon Dioxide 27.0 mmol/L (21-32); Chloride 106.0 mmol/L (98-107); Creatinine Clr Calc Pharmacy 79.4 ml/min; Glucose 108.0 mg/dl (70-99(Fasting)); Magnesium 2.1 mg/dl (1.7-2.4); Potassium 3.7 mmol/L (3.5-5.1); Sodium 139.0 mmol/L (136-145)
[2024-10-15 07:19] LABS: Immature Granulocytes # (auto) 0.04 K/uL (0.01-0.20); Immature Granulocytes % (auto) 0.2 %; Smudge Cells Present
[2024-10-15] MEDS: POLYETHYLENE (MIRALAX) 17 GM PACK PO PRN (09:25)
--- NOTE | 2024-10-15 12:36 | Hospitalist Progress Note ---
Date of Service October 15, 2024 Assessment & Plan (1) Bacteremia: (2) Complicated urinary tract infection: Plan This is a 69 year old female with past medical history of CLL, HTN who presented to the ED on 10/13/2024 with a chief complaint of left flank pain. 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 BMP stable renal function & electrolytes Procal & Lactate negative UC & BC both + for E. Coli, sensitivities show Rocephin compatible Continue IV Rocephin, plan to transition to PO abx on discharge. Fever resolved PT/OT consulted --> recommending returning to prior living arrangement on discharge. #Hypoxia Patient w/ O2 sats < 90% overnight, reportedly used to have a CPAP but no longer uses Plan for overnight oxygen study 10/15-10/16 evening. May require starting CPAP again on discharge. #HTN BP normotensive currently Hold Lisinopril-HCTZ #HLD - Continue statin #Vertigo - Continue Meclizine prn #CLL - follows w/ oncology. Not on active tx #GERD - continue PPI #Anxiety/depression - Continue Duloxetine DVT prophylaxis: Heparin Code: full Admission and Anticipated Discharge Date Admission Date: October 13, 2024 Supervising Physician Co-Signing Physician Notes Attending Attestation - Chart reviewed, care plan d/w BARON Fitzgerald. I agree with the morrell components of her documentation. e.coli UTI/bacteremia -- agree with IV rocephin; would ultimately transition to PO cipro given its excellent bioavailability & excellent urinary tract/blood penetration. -CT a/p reviewed await overnight oximetry study. Leo Francis Edna seen and examined this morning. She was sitting up in her chair at time of encounter. She reports that she was feeling much better today. Denies any further flank pain or urinary symptoms. States she used to wear a CPAP at one time. Denies SOB or CP Physical Exam Constitutional: WD/WN, vitals as above Eyes: PERRL, conjunctivae normal, anicteric sclerae Respiratory: normal respiratory effort, lungs clear to auscultation Cardiovascular: RRR, no murmur, no edema Neurologic: PERRL, EOMI, accommodation nl, no face palsy, no dysarthria Psychiatric: A+Ox3, euthymic affect Results & Data Results & Data Vital Signs (Past 12 Hours) Vital Signs Temp Pulse Resp BP BP Pulse Ox O2 Del Method 10/15/24 11:14 37.0 C 70 19 111/59 L 90 Room Air 10/15/24 07:23 36.6 C 65 20 110/70 95 Nasal Cannula 10/15/24 03:51 36.6 C 59 L 18 126/72 98 Room Air O2 Flow Rate 10/15/24 11:14 10/15/24 07:23 1 10/15/24 03:51 PG Care Time/CCT Total # of Minutes Spent Total Time Spent with Patient: Total time spent is greater than 50% in coordination of care (as documented) at patient's floor/unit and/or counseling patient: Coding Level of Care Code 51317 SUB INP/OBS CARE 2/35MIN Diagnoses Bacteremia R78.81 Complicated urinary tract infection N39.0
[2024-10-15 19:24] VITALS: RESP 18
[2024-10-16 06:07] LABS: Hematocrit (blood only) 34.0 % (37.0-47.0); Hemoglobin 11.2 g/dl (12.0-16.0); Mean Corpuscular Hemoglobin 28.9 pg (25.0-34.0); Mean Corpuscular Volume 87.6 fL (80.0-100.0); Platelet Count 148 K/uL (130-400); RDW Standard Deviation 46.5 fL (36.4-46.3); Red Blood Count 3.88 M/uL (4.20-5.40); White Blood Count 17.93 K/ul (4.8-10.8)
[2024-10-16 06:28] LABS: Anion Gap 5.0 (3-11); Blood Urea Nitrogen 16.0 mg/dl (6-23); Calcium 8.8 mg/dl (8.6-10.3); Carbon Dioxide 30.0 mmol/L (21-32); Chloride 104.0 mmol/L (98-107); Creatinine Clr Calc Pharmacy 59.8 ml/min; Glucose 107.0 mg/dl (70-99(Fasting)); Potassium 3.6 mmol/L (3.5-5.1); Sodium 139.0 mmol/L (136-145)
[2024-10-16 07:18] LABS: Immature Granulocytes # (auto) 0.03 K/uL (0.01-0.20); Immature Granulocytes % (auto) 0.2 %; Smudge Cells Present
--- NOTE | 2024-10-16 09:57 | Discharge Summary ---
Discharge Summary Date of Service October 16, 2024 Principal Dx & Hospital Course #1 = Principal Diagnosis (1) Bacteremia: (2) Complicated urinary tract infection: Plan This is a 69 year old female with past medical history of CLL, HTN who presented to the ED on 10/13/2024 with a chief complaint of left flank pain. 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 BMP stable renal function & electrolytes Procal & Lactate negative UC & BC both + for E. Coli, sensitivities reviewed s/p 4 days of IV Rocephin --> transition to Cefdinir for additional 10 days on discharge. Fever resolved PT/OT consulted --> recommending returning to prior living arrangement on discharge. #Hypoxia Patient w/ O2 sats < 90% overnight, reportedly used to have a CPAP but no longer uses Overnight oxygen study showed <88% for total of 4:16 minutes. Does not qualify for home oxygen based on this. Referral to sleep medicine sent on discharge. #HTN BP low normotensive throughout hospital stay Hold Lisinopril-HCTZ until seen by PCP #HLD - Continue statin #Vertigo - Continue Meclizine prn #CLL - follows w/ oncology. Not on active tx #GERD - continue PPI #Anxiety/depression - Continue Duloxetine Discharged to home 10/16. Admission HPI Per Admitting Provider 69 yo F with PMHx of CLL, HTN, HLD, vertigo, GERD, h/o recurrent UTI brought to [facility] for evaluation of left flank pain. Pt stated that her symptoms started about 10 days ago with burning with urination. She was using AZO over the counter, which was helping while she is on it but as soon as she stopped, her symptoms came back. The last few days she has developed low back / flank pain, L > R. She denied fever / chills, though she is currently under 4-5 blankets in the ED. She also noticed that her vertigo has worsened during this time. She noted that she fell about 1 week ago. She was holding on to a fence while watering plants but when she moved to a different railing, she didn't grab right away and she fell. She could not get up and had to call family to help her get up. She states she feels well otherwise. Discharge Exam Constitutional WD/WN, vitals as above Eyes PERRL, conjunctivae normal, anicteric sclerae Respiratory normal respiratory effort, lungs clear to auscultation Cardiovascular RRR, no murmur, no edema Gastrointestinal (Abdomen) normal bowel sounds, soft, nontender, no hepatosplenomegaly Neurologic PERRL, EOMI, accommodation nl, no face palsy, no dysarthria Psychiatric A+Ox3, euthymic affect Discharge Plan Discharge Items Patient Disposition: Home - Self-Care Reason For Visit: UTI Discharge Diagnosis: UTI, bacteremia Condition on Discharge: Fair Activity: Resume your previous activity Non-emergency contact: Primary Care Provider Call non-emergency contact if: you have any medication questions, your symptoms worsen and you have a fever Follow-up/Referrals: Sudeep Read PA-C [Primary Care Provider] - 10/29/24 10:30 am (Hospital follow up scheduled 5 at 10:30) Diet: Heart Healthy Addtl Attending Provider Instructions: Mrs. Landaverde, You were recently hospitalized for ongoing urinary symptoms. You were found to have a UTI that spread into your bloodstream. This is called bacteremia. You were treated with antibiotics appropriately and had improvement of your symptoms. Please see recommendations below regarding your discharge. Please take Cefdinir twice daily for 10 days. Your first dose will be tomorrow morning, 10/17. You may take with food to avoid GI upset. Please hold your blood pressure medication until seen by your PCP. Your blood pressures have been low normal while here and you may not require this medication anymore. Please keep a close eye on your blood pressure and call your PCP if it is consistently elevated (>140/90). Please resume the remainder of your medications. Please follow up with your PCP within 1-2 weeks of discharge. You are being referred to sleep medicine to see if you require a CPAP again at home. Their office will be in touch with you for an appointment. Best of luck! Monica Fitzgerald PA-C Pending Studies at Discharge: No Stand-Alone Forms: My [facility], Smoking Cessation Medications and DC Order Prescriptions: New cefdinir 300 mg capsule 300 mg PO BID 10 Days Qty: 20 0RF Continued omeprazole 20 mg capsule,delayed release(DR/EC) 20 mg PO BID cholecalciferol (vitamin D3) [Vitamin D3] 25 mcg (1,000 unit) Tablet 25 mcg PO QAM pravastatin 80 mg tablet 80 mg PO DAILY diclofenac sodium 50 mg tablet,delayed release (DR/EC) 50 mg PO BID duloxetine 30 mg capsule,delayed release(DR/EC) 30 mg PO DAILY Rx Instructions: TOTAL DOSE 90 MG--TAKES WITH 60 MG CAP. duloxetine 60 mg capsule,delayed release(DR/EC) 60 mg PO DAILY Rx Instructions: TOTAL DOSE 90 MG--TAKES WITH 30 MG CAP. oxybutynin chloride 15 mg tablet extended release 24hr 15 mg PO DAILY diphenhydramine-acetaminophen [Tylenol PM Extra Strength] 25-500 mg Tablet 1 tab PO HS PRN (Reason: Sleep) meclizine 12.5 mg tablet 12.5 mg PO BID PRN (Reason: Dizziness) pregabalin 225 mg capsule 225 mg PO BID Held lisinopril-hydrochlorothiazide [Zestoretic] 10-12.5 mg tablet 1 tab PO QAM Hold Instructions: Resume on 10/24/24. until seen by PCP Discharge Orders: Discharge Order (Routine); Ordered 10/16/24 Ordered By: Monica Fitzgerald Admission Data Admit Date/Time: 10/13/24 17:01 Attending Provider: Glendy Martino Admit Provider: Sofía Bales Primary Care Provider: Sudeep Read Other Providers: Sofía Bales Other Interventions: Discharge Summary Assessment (RN) Last Done: 10/16/24 10:35 Hospital Stay Data Consultations 10/13/24 16:06 ED Decision to Admit Stat Diagnostic Imagining Performed 10/13/24 11:35 CT abd pelvis IV con only Stat Pending Results Patient Have Any Pending Studies at Discharge: No Discharge Instructions Given to Patient (Per Discharging Provider) Mrs. Landaverde, You were recently hospitalized for ongoing urinary symptoms. You were found to have a UTI that spread into your bloodstream. This is called bacteremia. You were treated with antibiotics appropriately and had improvement of your symptoms. Please see recommendations below regarding your discharge. Please take Cefdinir twice daily for 10 days. Your first dose will be tomorrow morning, 10/17. You may take with food to avoid GI upset. Please hold your blood pressure medication until seen by your PCP. Your blood pressures have been low normal while here and you may not require this medication anymore. Please keep a close eye on your blood pressure and call your PCP if it is consistently elevated (>140/90). Please resume the remainder of your medications. Please follow up with your PCP within 1-2 weeks of discharge. You are being referred to sleep medicine to see if you require a CPAP again at home. Their office will be in touch with you for an appointment. Best of luck! Monica Fitzgerald PA-C Total Time Total Time Spent Total Time Spent (In Minutes): 45 Total Time Includes: Examination of the Patient, Discharge Planning and Medication Reconciliation Coding Level of Care Code 69975 INP/OBS DISCH >30 MIN Diagnoses Bacteremia R78.81 Complicated urinary tract infection N39.0
[2024-10-16 11:31] VITALS: BP 116/70; PULSE 67; TEMP 98.4; O2SAT 91
== END 2024-10-16 14:01 | disposition home or self-care (01) | DRG 872 ==
LOC: ED 10:38 → 4W 17:01 → SUATTDRO 17:01 → 4W 17:47

== ENCOUNTER 2025-03-06 12:35 | Observation (INO) ==
[2025-03-06 13:40] LABS: Hematocrit (blood only) 43.6 % (37.0-47.0); Hemoglobin 14.2 g/dL (12.0-16.0); Mean Corpuscular Hemoglobin 27.5 pg (25.0-34.0); Mean Corpuscular Volume 84.5 fL (80.0-100.0); Platelet Count 228 K/uL (130-400); RDW Standard Deviation 50.1 fL (36.4-46.3); Red Blood Count 5.16 M/uL (4.20-5.40); White Blood Count 40.01 K/ul (4.8-10.8)
[2025-03-06 13:41] LABS: Appearance Urine Cloudy (Clear); Bacteria Urine Automated 4+ (None Seen); Cast Urine Automated 0-2 /lpf (0-2); Glucose Urine UA Negative (Negative); WBC Urine Automated 21-50 /hpf (0-5)
[2025-03-06 13:56] LABS: INR 1.1 (0.9-1.1); Prothrombin Time 11.3 Seconds (9.0-12.0)
[2025-03-06 14:00] LABS: Alanine Aminotransferase 13 U/L (7-52); Albumin Globulin Ratio 1.3 (0.9-2); Albumin Level 4.4 gm/dl (3.4-5.0); Alkaline Phosphatase 70 U/L (34-104); Anion Gap 9 (3-11); Bilirubin,Total 0.7 mg/dl (0.2-1.0); Blood Urea Nitrogen 26 mg/dl (6-23); Calcium 9.2 mg/dl (8.6-10.3); Carbon Dioxide 24 mmol/L (21-32); Chloride 102 mmol/L (98-107); Creatinine Clr Calc Pharmacy 76.3 ml/min; Globulin 3.3 gm/dl (2.5-4.0); Glucose 122 mg/dl (70-99(Fasting)); Lipase 15 U/L (11-82); Sodium 135 mmol/L (136-145); Total Protein 7.7 gm/dl (6.0-8.3)
[2025-03-06 14:27] LABS: Immature Granulocytes # (auto) 0.13 K/uL (0.01-0.20); Immature Granulocytes % (auto) 0.3 %; Polychromasia 1+; Smudge Cells Present
[2025-03-06] MEDS: ONDANSETRON INJ 2 MG/ML 2 ML VIAL IV STA (14:34)
[2025-03-06] MEDS: MECLIZINE 12.5 MG TAB PO ONE (14:34)
[2025-03-06] MEDS: OPTIRAY 320 100ml IV ONE (14:41)
--- NOTE | 2025-03-06 14:50 | Emergency Department Note ---
Impression & Plan BRBPR (bright red blood per rectum), Colitis, Acute UTI (urinary tract infection) ED Provider Note HISTORY OF PRESENT ILLNESS: Patient is a 69-year-old female presenting with nausea and bright red blood per rectum. Patient reports she woke up feeling generally unwell. Denies any vomiting but reports feeling very nauseous. She states that she went to the bathroom and had got up to wipe her rectum when she noticed bright red blood on the toilet paper. She reports she looked in the toilet bowl and the bowl was filled with bright red blood. She denies any anticoagulation or antiplatelet therapies. She states she is having some diffuse lower abdominal pain. Denies any recent fevers or chills. She reports that she was unable to take any of her home medications today secondary to feeling so nauseous. She is complaining of feeling dizzy and vertiginous at this time, which she states is normal for her and she takes scheduled meclizine. She has not taken anything for abdominal pain or her nausea today. ROS: as above PHYSICAL EXAM: Constitutional: Patient appears in no acute distress. HENT: Head: Normocephalic and atraumatic. Eyes: EOMI, PERRL Mouth/Throat: Mucous membranes moist. Neck: Trachea midline. Neck supple. Cardiovascular: RRR, No murmurs, rubs or gallops. Intact distal pulses. Pulmonary/Chest: No respiratory distress. Breath sounds clear and equal bilaterally. No wheezes or rales. Abdominal: Abdomen soft, no tenderness, rebound or guarding. Rectal: Chaperoned by nursing staff. No obvious external hemorrhoids or anal fissures. No palpable internal hemorrhoids or internal mass. Bright red blood per rectum on glove. Musculoskeletal: No edema, tenderness or deformity noted. Skin: Warm and dry. No rash, erythema, pallor or cyanosis Psychiatric: Appropriate mood and affect for situation. Neurological: Alert and keenly responsive. CN II-XII grossly intact, moving all extremities equally and fully. MDM: - Vitals signs stable - History obtained via patient. History as above. - Chronic conditions affecting care: HTN; vertigo; CLL - Differential diagnoses include, but are not limited to: colitis; hemorrhoids; coagulopathy; anal fissure; diverticular bleed - Order placed for continuous cardiac monitoring. At this time, monitor showed rate of 83 bpm with normal sinus rhythm, per my interpretation. - External medical records reviewed. Discharge summary dated 10/13. Patient was admitted for left flank pain and acute UTI causing bacteremia. - Laboratory workup interpreted by myself showed leukocytosis (WBC 40.01 - pt has CLL); stable electrolytes; normal lactate; normal AST/ALT; normal lipase - UA showed evidence of infection. Given 2g IV rocephin. Urine culture dated 10/13/2024 grew E. coli that was sensitive to Rocephin and cephalosporins. - Procal added to workup - Patient given 4 mg IV zofran and her home 12.5 mg PO antivert in ER for symptomatic management on arrival - CT abdomen/pelvis with IV contrast showed underdistention versus mild wall thickening of the left colon with out any surrounding inflammation. Could be evidence of mild nonspecific colitis. Normal appendix. - Stool PCR and C diff studies added to workup. - Discussion was had with egg caser about patient's case and need for admission - Hospitalist consulted for admission - [facility] ASSESSMENT AND PLAN: Diagnosis: Bright red blood per rectum; colitis; acute UTI Plan: Admit Past Med/Surg History Problem List (Updated 03/06/25 @ 15:37 by Juana Moreira MD) Acute UTI (urinary tract infection) (Acute) Colitis (Acute) BRBPR (bright red blood per rectum) (Acute) Nausea & vomiting (Acute) Headache (Acute) Bacteremia CLL (chronic lymphocytic leukemia) (Acute) Leukocytosis (Acute) Left flank pain (Acute) Complicated urinary tract infection (Acute) Neck pain (Acute) Hypertension Vertigo (Acute) Encounter for pre-operative examination No known health problems Medical History Chronic back pain Fibromyalgia Stable- chronic pain- generalized pain- no current flares GERD (gastroesophageal reflux disease) Well controlled and stable Diabetes mellitus, type 2 Diet controlled - glucose well controlled Leukemia CLL- under observation- gets checked every 6 months at [facility] in [place] > currently in remission Hyperlipidemia Sleep apnea no longer using cpap> too much congestion and kept waking patient up Surgical History History of esophagogastroduodenoscopy (EGD) History of colonoscopy History of lithotripsy History of partial hysterectomy Family History Grandmother (Paternal) Colon cancer Father Diabetes Sister Diabetes Brother Diabetes Social History Smoking Status: Never smoker Second Hand Exposure: No; Do You Dip or Chew Tobacco: No; Hx Alcohol Use: Yes Alcohol type: beer and wine Hx Substance Use: No Preferred Language: Mohawk Communication Ability: Effective Snow Removal/Plowing Required: No Beliefs That Will Affect Care: None Current Living Situation: Significant Other Feels Safe at Home: Yes Assistive Devices: Cane Allergies Allergies Allergy/AdvReac Type Severity Reaction Status Date / Time tetracycline AdvReac Intermediate BLACK & Verified 08/03/24 17:38 BLUE IN JOINTS, LOST USE OF LEGS Home Meds Home Medications Medication Instructions Recorded Confirmed cholecalciferol (vitamin D3) 25 25 mcg PO QAM 09/29/19 03/06/25 mcg (1,000 unit) tablet (Vitamin D3) lisinopril 10 1 tab PO QAM 09/29/19 03/06/25 mg-hydrochlorothiazide 12.5 mg tablet (Zestoretic) omeprazole 20 mg capsule,delayed 20 mg PO DAILY 09/29/19 03/06/25 release diclofenac sodium 50 mg 50 mg PO BID 09/19/22 03/06/25 tablet,delayed release duloxetine 30 mg capsule,delayed 30 mg PO DAILY 09/19/22 03/06/25 release duloxetine 60 mg capsule,delayed 60 mg PO DAILY 09/19/22 03/06/25 release pravastatin 80 mg tablet 80 mg PO DAILY 09/19/22 03/06/25 diphenhydramine 25 1 tab PO HS PRN Sleep 08/03/24 03/06/25 mg-acetaminophen 500 mg tablet (Tylenol PM Extra Strength) oxybutynin chloride 15 mg 15 mg PO DAILY 08/03/24 03/06/25 tablet,extended release 24 hr meclizine 12.5 mg tablet 12.5 mg PO BID 10/13/24 03/06/25 pregabalin 225 mg capsule 225 mg PO BID 10/13/24 03/06/25 turmeric 200 mg PO DAILY 02/23/25 03/06/25 vibegron 75 mg tablet (Gemtesa) 75 mg PO DAILY 02/23/25 03/06/25 Results & Data (ED) Vital Signs Vital Signs - 24 hr 03/06/25 12:38 03/06/25 12:59 03/06/25 13:00 Temperature 37.0 C Temperature Source Temporal Artery Scan Pulse Rate 81 88 86 Pulse Rhythm Regular Pulse Strength Normal Respiratory Rate 16 24 Respiratory Effort / Characteristics Non-Labored Respiratory Depth Normal Respiratory Pattern Regular Blood Pressure 134/90 134/73 Blood Pressure Mean 104 82 Blood Pressure Position Sitting Pulse Oximetry 96 94 Oxygen Delivery Method Room Air Room Air Sepsis Recent Fever Within 48 Hours No Sepsis New/Unexplained Change in Mental Status No Sepsis Action Taken by Nursing No Action Required 03/06/25 13:15 03/06/25 13:17 Temperature Temperature Source Pulse Rate 80 83 Pulse Rhythm Regular Pulse Strength Respiratory Rate 21 23 Respiratory Effort / Characteristics Respiratory Depth Respiratory Pattern Blood Pressure 136/76 Blood Pressure Mean 96 Blood Pressure Position Pulse Oximetry 94 93 Oxygen Delivery Method Room Air Room Air Sepsis Recent Fever Within 48 Hours Sepsis New/Unexplained Change in Mental Status Sepsis Action Taken by Nursing Laboratory Data 03/06/25 13:10 03/06/25 14:13 Lab Results 03/06/25 03/06/25 03/06/25 Range/Units 13:00 13:10 14:13 WBC 40.01 H* (4.8-10.8) K/ul RBC 5.16 (4.20-5.40) M/uL Hgb 14.2 (12.0-16.0) g/dL Hct 43.6 (37.0-47.0) % MCV 84.5 (80.0-100.0) fL MCH 27.5 (25.0-34.0) pg MCHC 32.6 (32.0-36.0) g/dL RDW Std Deviation 50.1 H (36.4-46.3) fL RDW Coeff of Maynor 16.4 H (11.5-14.5) % Plt Count 228 (130-400) K/uL MPV 11.6 (9.4-12.4) fL Immature Gran % (Auto) 0.3 % Neut % (Auto) 19.8 % Lymph % (Auto) 76.9 % Cascade % (Auto) 2.2 % Eos % (Auto) 0.4 % Baso % (Auto) 0.4 % Neut # (Auto) 7.89 H (1.40-6.50) K/uL Lymph # (Auto) 30.78 H (1.20-3.40) K/uL Cascade # (Auto) 0.88 H (0.11-0.59) K/uL Eos # (Auto) 0.18 (0.00-0.50) K/uL Baso # (Auto) 0.15 (0.00-0.20) K/uL Immature Gran # (Auto) 0.13 (0.01-0.20) K/uL Smudge Cells Present Polychromasia 1+ PT 11.3 (9.0-12.0) Seconds INR 1.1 (0.9-1.1) Sodium 135 L (136-145) mmol/L Potassium TNP 3.8 Chloride 102 (98-107) mmol/L Carbon Dioxide 24 (21-32) mmol/L Anion Gap 9 (3-11) BUN 26 H (6-23) mg/dl Creatinine 0.67 (0.6-1.2) mg/dl Est Cr Clr Drug Dosing 76.3 ml/min eGFR 93.39 BUN/Creatinine Ratio 38.8 H (10-20) Glucose 122 H (70-99(Fasting)) mg/dl Lactate 1.4 (0.4-2.0) mmol/L Calcium 9.2 (8.6-10.3) mg/dl Total Bilirubin 0.7 (0.2-1.0) mg/dl AST TNP 17 ALT 13 (7-52) U/L Alkaline Phosphatase 70 (34-104) U/L Total Protein 7.7 (6.0-8.3) gm/dl Albumin 4.4 (3.4-5.0) gm/dl Globulin 3.3 (2.5-4.0) gm/dl Albumin/Globulin Ratio 1.3 (0.9-2) Lipase 15 (11-82) U/L Urine Color Yellow Urine Appearance Cloudy A (Clear) Urine pH 6.0 (4.5-7.5) Ur Specific [place] 1.025 (1.000-1.030) Urine Protein Trace H (Negative) Urine Glucose (UA) Negative (Negative) Urine Ketones Trace H (Negative) Urine Blood 2+ H (Negative) Urine Nitrite Positive A (Negative) Urine Bilirubin Negative (Negative) Urine Urobilinogen Negative (Negative) Ur Leukocyte Esterase 2+ H (Negative) Urine WBC (Auto) 21-50 H (0-5) /hpf Urine RBC (Auto) 6-10 H (0-2) /hpf U Hyaline Cast (Auto) 0-2 (0-2) /lpf U Epithel Cells (Auto) 6-10 H (0-2) /hpf Urine Bacteria (Auto) 4+ H (None Seen) Urine Mucus Present A (None Prsent) Urine Comment Administered Medications Discontinued Medications Ceftriaxone Sodium (Rocephin) 2,000 mg in 50 mls @ 100 mls/hr IV NOW STA Stop: 03/06/25 14:59 Last Admin: 03/06/25 15:27 Dose: 100 mls/hr Documented By: jalyn Ioversol (Optiray 320 100ml) 90 ml IV ONCE ONE Stop: 03/06/25 14:42 Last Admin: 03/06/25 14:41 Dose: 90 ml Documented By: JAYSHREE Meclizine HCl (Meclizine 12.5 Mg Tab) 12.5 mg PO ONCE ONE Stop: 03/06/25 13:15 Last Admin: 03/06/25 14:34 Dose: 12.5 mg Documented By: TETO Ondansetron HCl (Ondansetron Inj 2 Mg/Ml 2 Ml Vial) 4 mg IV NOW STA Stop: 03/06/25 13:15 Last Admin: 03/06/25 14:34 Dose: 4 mg Documented By: TETO Imaging Data Radiologist's Impression: Abdomen/Pelvis CT 03/06/25 13:14 CT SCAN OF THE ABDOMEN AND PELVIS WITH IV CONTRAST CLINICAL HISTORY: Lower abdominal pain. Hematochezia. COMPARISON STUDY: Abdominal CT dated 10/13/2024. TECHNIQUE: Following the IV administration of 90 cc of Optiray 320, CT scan of the abdomen and pelvis is performed from the lung bases to the proximal femora. Images are reviewed in the axial, sagittal, and coronal planes. IV contrast was administered without complication. A dose lowering technique was utilized adhering to the principles of ALARA. CT DOSE: 1211.36 mGy.cm FINDINGS: Lung bases: The heart is normal in size and without pericardial effusion. The lung bases are clear noting bibasilar scarring/atelectasis. A small hiatal hernia is noted. Liver: The contrast-enhanced liver is normal in size, contour, and attenuation. There is no intrahepatic biliary ductal dilatation. The hepatic veins and portal veins are patent. Gallbladder: Surgically absent noting clips in the gallbladder fossa. Spleen: Normal in size and attenuation. Pancreas: Unremarkable. Adrenal glands: Unremarkable. Kidneys: The contrast enhanced kidneys are normal in size and without hydronephrosis. The kidneys enhance symmetrically. A retroaortic left renal vein is incidentally noted. Abdominal vasculature: The abdominal aorta is normal in course and caliber noting moderate to advanced atherosclerotic calcification. Bowel: There is mild wall thickening versus underdistention of the left colon. No pericolonic inflammation is identified. No bowel obstruction is seen. The appendix is well-visualized and normal. Peritoneum: There is no intraperitoneal free air or abdominal ascites. A fat- containing supraumbilical hernia is seen on axial image #119. Lymphadenopathy: None. Pelvic viscera: The bladder is normal as visualized. The uterus is surgically absent. No adnexal lesion is seen. Skeletal structures: The skeletal structures are osteopenic. There is moderate to advanced sacral spondylosis as well as scoliosis. No lytic or blastic lesions are seen. IMPRESSION: 1. There is underdistention versus mild wall thickening of the left colon. There is no surrounding inflammation. Correlate clinically for evidence of a mild nonspecific colitis. 2. Additional findings as above. ACT 112: Negative or not required by law. Electronically signed by: Brendan Mcpherson M.D. 03/06/2025 3:07 PM Discharge Plan Visit Data Chief Complaint: Rectal Bleed Stated Complaint: RECTAL BLEED SINCE AM, NAUSEA, ABD PAIN LAST SUSSY ED Provider: Juana Moreira Discharge Problem: BRBPR (bright red blood per rectum), Colitis, Acute UTI (urinary tract infection) Patient Disposition: Admitted As Inpatient Condition: Fair Forms Stand Alone Forms: My [facility] [employer] ([employer]) Prescriptions Prescriptions: No Action omeprazole 20 mg capsule,delayed release(DR/EC) 20 mg PO DAILY lisinopril-hydrochlorothiazide [Zestoretic] 10-12.5 mg tablet 1 tab PO QAM Hold Instructions: Resume on 10/24/24. until seen by PCP cholecalciferol (vitamin D3) [Vitamin D3] 25 mcg (1,000 unit) Tablet 25 mcg PO QAM pravastatin 80 mg tablet 80 mg PO DAILY diclofenac sodium 50 mg tablet,delayed release (DR/EC) 50 mg PO BID duloxetine 30 mg capsule,delayed release(DR/EC) 30 mg PO DAILY Rx Instructions: TOTAL DOSE 90 MG--TAKES WITH 60 MG CAP. duloxetine 60 mg capsule,delayed release(DR/EC) 60 mg PO DAILY Rx Instructions: TOTAL DOSE 90 MG--TAKES WITH 30 MG CAP. oxybutynin chloride 15 mg tablet extended release 24hr 15 mg PO DAILY diphenhydramine-acetaminophen [Tylenol PM Extra Strength] 25-500 mg Tablet 1 tab PO HS PRN (Reason: Sleep) meclizine 12.5 mg tablet 12.5 mg PO BID pregabalin 225 mg capsule 225 mg PO BID Gemtesa 75 mg tablet 75 mg PO DAILY turmeric 200 mg PO DAILY Referrals Referrals: Sudeep Read PA-C [Primary Care Provider] -
[2025-03-06 14:55] LABS: Potassium 3.8 mmol/L (3.5-5.1)
--- NOTE | 2025-03-06 15:08 | CT Scan Report ---
CT SCAN OF THE ABDOMEN AND PELVIS WITH IV CONTRAST CLINICAL HISTORY: Lower abdominal pain. Hematochezia. COMPARISON STUDY: Abdominal CT dated 10/13/2024. TECHNIQUE: Following the IV administration of 90 cc of Optiray 320, CT scan of the abdomen and pelvi s is performed from the lung bases to the proximal femora. Images are reviewed in the axial, sagittal , and coronal planes. IV contrast was administered without complication. A dose lowering technique wa s utilized adhering to the principles of ALARA. CT DOSE: 1211.36 mGy.cm FINDINGS: Lung bases: The heart is normal in size and without pericardial effusion. The lung bases are clear no ting bibasilar scarring/atelectasis. A small hiatal hernia is noted. Liver: The contrast-enhanced liver is normal in size, contour, and attenuation. There is no intrahepa tic biliary ductal dilatation. The hepatic veins and portal veins are patent. Gallbladder: Surgically absent noting clips in the gallbladder fossa. Spleen: Normal in size and attenuation. Pancreas: Unremarkable. Adrenal glands: Unremarkable. Kidneys: The contrast enhanced kidneys are normal in size and without hydronephrosis. The kidneys enh ance symmetrically. A retroaortic left renal vein is incidentally noted. Abdominal vasculature: The abdominal aorta is normal in course and caliber noting moderate to advance d atherosclerotic calcification. Bowel: There is mild wall thickening versus underdistention of the left colon. No pericolonic inflamm ation is identified. No bowel obstruction is seen. The appendix is well-visualized and normal. Peritoneum: There is no intraperitoneal free air or abdominal ascites. A fat-containing supraumbilica l hernia is seen on axial image #119. Lymphadenopathy: None. Pelvic viscera: The bladder is normal as visualized. The uterus is surgically absent. No adnexal lesi on is seen. Skeletal structures: The skeletal structures are osteopenic. There is moderate to advanced sacral spo ndylosis as well as scoliosis. No lytic or blastic lesions are seen. IMPRESSION: 1. There is underdistention versus mild wall thickening of the left colon. There is no surrounding in flammation. Correlate clinically for evidence of a mild nonspecific colitis. 2. Additional findings as above. ACT 112: Negative or not required by law. Electronically signed by: Brendan Mcpherson M.D. 03/06/2025 3:07 PM
[2025-03-06] MEDS: cefTRIAXone SODIUM 2,000 MG/50 ML BAG IV STA (15:27)
--- NOTE | 2025-03-06 16:05 | History & Physical Report ---
"Date of Service March 06, 2025 Assessment & Plan (1) BRBPR (bright red blood per rectum): (2) Acute UTI (urinary tract infection): (3) History of leukemia: (4) Nausea: Plan Pt is a 69 F with a PMHx significant Hx CLL, HTN, HLD, GERD, T2DM, Vertigo, Fibromyalgia, Depression and Anxiety who presented to the ED c/o BRBPR. #Hematochezia | GI Bleed | Colitis? - H&H stable 03/06; PT/INR wnl; CTAP 03/06 w/ underdistention vs mild wall thickening of L colon, no surrounding inflammation -Stool Studies Pending -C-diff screening Pending -Continuous HR + O2 Monitoring; VS Q1H -Trend H&H; Repeat 10:00 -IVF NSS 0.99% 80mL/Hr -Consult GI -CBC, CMP, Procal, CRP in AM #UTI - 03/06 UA w/ 2+Blood, +Nitrites, 2+LE, 4+ Bacteria; WBC 40.01 on admission -Urine Culture Pending -Blood Cx Pending -Continue IV Rocephin - consider d/c if procal and CRP WNL #Hx CLL - Follows w/ oncology in [place]; Not on active treatment -Peripheral Smear -Pt admits to recently experiencing night sweats and loss of appetite, this should be monitored closely in the setting of WBC count of 40 #Nausea - -Zofran 4mg IV prn #Overactive Bladder - No acute Concerns -Continue Gemtesa #HTN | HLD - No acute concerns -Continue Lisinopril-Hydrochlorothiazide -Continue Pravastatin #GERD - No acute Concerns -Hold Omeprazole -Protonix 40mg IV BID #Type 2 Diabetes Mellitus - Most Recent A1C [] -Diet Controlled -Loose SSI prn #Vertigo - -Continue Meclizine prn #Fibromyalgia - No acute concerns -Continue Pregabalin 225mg PO BID #Sleep Apnea - No longer uses CPAP -Monitor O2 Sats overnight #Depression | Anxiety - No acute concerns -Continue Duloxetine 30mg + 60mg PO daily VTE Proph: Deferred d/t BRBPR Dispo: Admit Med/Tele CODE STATUS: Full Code, discussed with patient History of Present Illness Chief Complaint: BRBPR Primary Care Provider: Sudeep J. Ricotta, PA-C Pt is a 69 F with a PMHx significant Hx CLL, HTN, HLD, GERD, T2DM, Vertigo, Fibromyalgia, Depression and Anxiety who presented to the ED c/o BRBPR. Pt states that this AM around 0100 she went to the bathroom to urinate and noticed blood. Pt states that she then wiped her rectum she saw davin blood on the toilet tissue. Pt states that she noticed that the bleeding was initially only present when she went to the bathroom, but by early afternoon it had progressed to staining her depends. Pt states at this point she called her daughter and urgent care who both recommended that she comes into the ED. 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 She notes that today 03/06, that she was so nauseous that she was unable to take any of her morning medications. She additionally recalls an episode of night sweats that resulted in her sheets becoming damp and her needed to change her night-gown. She admits to diarrhea (isolated to day of admission), nausea, difficulty sleeping, loss of appetite, and tinismus. Pt denies changes in weight, H/A, changes in hearing or vision, congestion, sore throat, cough, palpitations, orthopnea, edema, vomiting, constipation, frequency, urgency, dysuria, and gross hematuria.Pt denies any previous episodes similar in nature. Pt states her most recent Colonoscopy was >5 years ago and she recall that she was encouraged to follow-up within 5 years. She notes that she has a Cologuard at home that she has not yet done. Pt was transported to the ED via her . While in the ED, the patient received a CBC that revealed WBC 40, UA that was likely infectious, and a CTAP that demonstrated inderdistention vs mild wall thickening of Lt colon without any surrounding inflammation. Pt was diagnosed with BRBPR, UTI, and possible colitis. Pt is being admitted for further evaluation and care. Allergies Allergy/AdvReac Type Severity Reaction Status Date / Time tetracycline AdvReac Intermediate BLACK & Verified 08/03/24 17:38 BLUE IN JOINTS, LOST USE OF LEGS Home Medications Medication Instructions Recorded Confirmed Type cholecalciferol (vitamin D3) 25 25 mcg PO QAM 09/29/19 03/06/25 History mcg (1,000 unit) tablet (Vitamin D3) lisinopril 10 1 tab PO QAM 09/29/19 03/06/25 History mg-hydrochlorothiazide 12.5 mg tablet (Zestoretic) omeprazole 20 mg capsule,delayed 20 mg PO DAILY 09/29/19 03/06/25 History release diclofenac sodium 50 mg 50 mg PO BID 09/19/22 03/06/25 History tablet,delayed release duloxetine 30 mg capsule,delayed 30 mg PO DAILY 09/19/22 03/06/25 History release duloxetine 60 mg capsule,delayed 60 mg PO DAILY 09/19/22 03/06/25 History release pravastatin 80 mg tablet 80 mg PO DAILY 09/19/22 03/06/25 History diphenhydramine 25 1 tab PO HS PRN Sleep 08/03/24 03/06/25 History mg-acetaminophen 500 mg tablet (Tylenol PM Extra Strength) oxybutynin chloride 15 mg 15 mg PO DAILY 08/03/24 03/06/25 History tablet,extended release 24 hr meclizine 12.5 mg tablet 12.5 mg PO BID 10/13/24 03/06/25 History pregabalin 225 mg capsule 225 mg PO BID 10/13/24 03/06/25 History turmeric 200 mg PO DAILY 02/23/25 03/06/25 History vibegron 75 mg tablet (Gemtesa) 75 mg PO DAILY 02/23/25 03/06/25 History Past Med/Surg History Problem List (Updated 03/06/25 @ 18:39 by Rose Marie Cat PA-C) Nausea History of leukemia Acute UTI (urinary tract infection) (Acute) Colitis (Acute) BRBPR (bright red blood per rectum) (Acute) Nausea & vomiting (Acute) Headache (Acute) Bacteremia CLL (chronic lymphocytic leukemia) (Acute) Leukocytosis (Acute) Left flank pain (Acute) Complicated urinary tract infection (Acute) Neck pain (Acute) Hypertension Vertigo (Acute) Encounter for pre-operative examination No known health problems Medical History Chronic back pain Fibromyalgia Stable- chronic pain- generalized pain- no current flares GERD (gastroesophageal reflux disease) Well controlled and stable Diabetes mellitus, type 2 Diet controlled - glucose well controlled Leukemia CLL- under observation- gets checked every 6 months at [facility] in [place] > currently in remission Hyperlipidemia Sleep apnea no longer using cpap> too much congestion and kept waking patient up Surgical History History of esophagogastroduodenoscopy (EGD) History of colonoscopy History of lithotripsy History of partial hysterectomy Family History Grandmother (Paternal) Colon cancer Father Diabetes Sister Diabetes Brother Diabetes Social History Smoking Status: Never smoker Second Hand Exposure: No; Do You Dip or Chew Tobacco: No; Hx Alcohol Use: Yes Alcohol type: beer and wine Hx Substance Use: No Preferred Language: Australian Communication Ability: Effective Director Of Agriculture Required: No Beliefs That Will Affect Care: None Current Living Situation: Significant Other Feels Safe at Home: Yes Assistive Devices: Cane Review of Systems Review of Systems: All systems reviewed & are unremarkable except as noted in Subjective Physical Exam Physical Exam: General: Pt is a 69 y/o Obese F in NAD in bed. VS: reviewed, remarkable - BP 164/90 Skin: Warm and dry; no lesions or ulcerations Respiratory: CTA bilat, no adventitious sounds noted. Chest expansion is full and symmetrical Cardio: RRR no murmurs Abdomen: Round, normoactive BS x4, nontender to palpation MSK: FROM of extremities, no deformities Extremities: no edema Neuro: A&Ox4, cooperative Results & Data Results & Data Vital Signs (Past 12 Hours) Vital Signs Temp Pulse Resp BP Pulse Ox O2 Del Method 03/06/25 13:17 83 23 136/76 93 Room Air 03/06/25 13:15 80 21 94 Room Air 03/06/25 13:00 86 03/06/25 12:59 88 24 134/73 94 Room Air 03/06/25 12:38 98.6 F 81 16 134/90 96 Room Air Laboratory Results Reviewed: CBC, CMP, CRP Diagnostic Findings Reviewed: CTAP PG Care Time/CCT Total # of Minutes Spent Total Time Spent with Patient: Total time spent is greater than 50% in coordination of care (as documented) at patient's floor/unit and/or counseling patient: Coding Level of Care Code 57469 INT INP/OBS CARE 3/75MIN Diagnoses BRBPR (bright red blood per rectum) K62.5 Acute UTI (urinary tract infection) N39.0 History of leukemia Z85.6 Nausea R11.0"
[2025-03-06] MEDS: SODIUM CHLORIDE 0.9% 1,000 ML IV SCH (18:01)
[2025-03-06 19:40] LABS: Hematocrit (blood only) 43.1 % (37.0-47.0); Hemoglobin 14.0 g/dL (12.0-16.0); Mean Corpuscular Hemoglobin 27.8 pg (25.0-34.0); Mean Corpuscular Volume 85.5 fL (80.0-100.0); Platelet Count 194 K/uL (130-400); RDW Standard Deviation 51.3 fL (36.4-46.3); Red Blood Count 5.04 M/uL (4.20-5.40); White Blood Count 33.81 K/ul (4.8-10.8)
[2025-03-06 20:06] LABS: Immature Granulocytes # (auto) 0.09 K/uL (0.01-0.20); Immature Granulocytes % (auto) 0.3 %; RBC Morphology Unremarkable
[2025-03-06] MEDS ORDERED: POLYETHYLENE (MIRALAX) 17 GM PACK PO PRN (20:52)
[2025-03-06] MEDS ORDERED: MELATONIN 3 MG TAB PO PRN (20:52)
[2025-03-06] MEDS ORDERED: ONDANSETRON INJ 2 MG/ML 2 ML VIAL IV PRN (20:52)
[2025-03-06] MEDS ORDERED: ACETAMINOPHEN 325 MG TAB PO PRN (20:52)
[2025-03-06 22:13] LABS: Cdiff Toxin B Gene (2yr or >) Negative Cdiff Gene (Neg)
[2025-03-06] MEDS: MECLIZINE 12.5 MG TAB PO SCH (22:51)
[2025-03-06] MEDS: PREGABALIN 75 MG CAP PO SCH (22:51)
[2025-03-06] MEDS: LISINOPRIL/HCTZ 10/12.5MG TAB PO SCH (22:51)
[2025-03-06] MEDS: PANTOprazole 40 MG/10 ML SYR IV SCH (22:56)
[2025-03-07 07:24] LABS: Hematocrit (blood only) 38.6 % (37.0-47.0); Hemoglobin 12.6 g/dL (12.0-16.0); Mean Corpuscular Hemoglobin 28.1 pg (25.0-34.0); Mean Corpuscular Volume 86.0 fL (80.0-100.0); Platelet Count 154 K/uL (130-400); RDW Standard Deviation 51.6 fL (36.4-46.3); Red Blood Count 4.49 M/uL (4.20-5.40); White Blood Count 23.14 K/ul (4.8-10.8)
[2025-03-07 07:49] LABS: Alanine Aminotransferase 11 U/L (7-52); Albumin Globulin Ratio 1.7 (0.9-2); Albumin Level 4.0 gm/dl (3.4-5.0); Alkaline Phosphatase 51 U/L (34-104); Anion Gap 9 (3-11); Bilirubin,Total 0.7 mg/dl (0.2-1.0); Blood Urea Nitrogen 20 mg/dl (6-23); Calcium 8.5 mg/dl (8.6-10.3); Carbon Dioxide 26 mmol/L (21-32); Chloride 106 mmol/L (98-107); Creatinine Clr Calc Pharmacy 74.6 ml/min; Globulin 2.3 gm/dl (2.5-4.0); Glucose 119 mg/dl (70-99(Fasting)); Potassium 3.5 mmol/L (3.5-5.1); Sodium 141 mmol/L (136-145); Total Protein 6.3 gm/dl (6.0-8.3)
[2025-03-07 08:06] LABS: Hemoglobin A1C 6.2 % (4.5-5.6)
[2025-03-07 08:21] LABS: Immature Granulocytes # (auto) 0.03 K/uL (0.01-0.20); Immature Granulocytes % (auto) 0.1 %
[2025-03-07 08:23] LABS: Smudge Cells Present
--- NOTE | 2025-03-07 09:03 | Hospitalist Progress Note ---
"Date of Service March 07, 2025 Assessment & Plan (1) BRBPR (bright red blood per rectum): (2) Acute UTI (urinary tract infection): (3) History of leukemia: (4) Nausea: Plan Pt is a 69 F with a PMHx significant Hx CLL, HTN, HLD, GERD, T2DM, Vertigo, Fibromyalgia, Depression and Anxiety who presented to the ED c/o BRBPR. #Hematochezia | GI Bleed | Colitis - H&H stable 03/06; PT/INR wnl; CTAP 03/06 w/ underdistention vs mild wall thickening of L colon, no surrounding inflammation; 03/06 Stool Studies + C/ difficile neg -GI Consulted: Recommend outpatient follow-up for colonoscopy -Clear Liquid diet, continue supportive care -Continuous HR + O2 Monitoring; VS Q1H -Trend H&H, recheck periodically -IVF NSS 0.99% 80mL/Hr -CBC, CMP, Procal, CRP in AM #UTI | Asymptomatic Bacteriuria - 03/06 UA w/ 2+Blood, +Nitrites, 2+LE, 4+ Bacteria; WBC 40.01 on admission; Pt remains asymptomatic -Urine Culture 03/06 +Ecoli -Blood Cx Pending d/t pt being asymptomatic, it is appropriate to withhold antibiotic treatment per treatment guidelines. #Hx CLL - Follows w/ oncology in [place]; Last appointment November 14, 2024; Not on active treatment; Peripheral Smear 03/07 is consistent w/ pt's known CLL lymphoproliferative disorder. Atypical lymphocytes indicative of a transformation to a large B cell lymphoma remain unseen -Pt admits to recently experiencing night sweats and loss of appetite, this should be monitored closely in the setting of WBC count of 40 #Nausea - Zofran 4mg IV prn #Overactive Bladder - No acute Concerns -Continue Gemtesa #HTN | HLD - No acute concerns -Continue Lisinopril-Hydrochlorothiazide -Continue Pravastatin #GERD - No acute Concerns -Hold Omeprazole -Protonix 40mg IV BID #Type 2 Diabetes Mellitus - 03/07 HbA1C 6.2 -Diet Controlled #Vertigo - -Continue Meclizine prn #Fibromyalgia - No acute concerns -Continue Pregabalin 225mg PO BID #Sleep Apnea - No longer uses CPAP -Monitor O2 Sats overnight #Depression | Anxiety - No acute concerns -Continue Duloxetine 30mg + 60mg PO daily VTE Proph: Deferred d/t BRBPR Dispo: Continue Med/Tele Admission and Anticipated Discharge Date Admission Date: March 06, 2025 Subjective Pt is laying in bed today in NAD. She notes that she overall feels better than yesterday. Nursing notes that the bleeding as improved overall. Pt denies cough, congestion, sore throat, SOB, CP, Palpitations, abd pain/discomfort, N/V/D, and weakness. Telemetry: Sinus 70s-80s overnight into AM w/ some PVCs and Trigeminy Review of Systems Review of Systems: All systems reviewed & are unremarkable except as noted in Subjective Physical Exam Physical Exam: General: Pt is a 69 y/o Obese F in NAD in bed. VS: reviewed, unremarkable - BP 122/61 Skin: Warm and dry; no lesions or ulcerations Respiratory: CTA bilat, no adventitious sounds noted. Chest expansion is full and symmetrical Cardio: RRR no murmurs Abdomen: Round, normoactive BS x4, nontender to palpation MSK: FROM of extremities, no deformities Extremities: no edema Neuro: A&Ox4, cooperative Results & Data Results & Data Vital Signs (Past 12 Hours) Vital Signs Temp Pulse Pulse Resp BP Pulse Ox O2 Del Method 03/07/25 07:57 87 03/07/25 07:32 98.4 F 78 18 122/59 L 93 Room Air 03/07/25 03:45 98.2 F 76 16 107/66 92 Room Air 03/06/25 22:30 Room Air 03/06/25 22:30 98.4 F 76 20 137/79 95 Room Air 03/06/25 22:27 79 Laboratory Results Reviewed: CBC, CRP, Procal, BMP, Peripheral Smear PG Care Time/CCT Total # of Minutes Spent Total Time Spent with Patient: Total time spent is greater than 50% in coordination of care (as documented) at patient's floor/unit and/or counseling patient: A total of 55 minutes was spent on pt care between direct patient contact (20minutes), review of chart, review of labs, coordination of care, and documentation. Coding Level of Care Code 44090 SUB INP/OBS CARE 3/50MIN Diagnoses BRBPR (bright red blood per rectum) K62.5 Acute UTI (urinary tract infection) N39.0 History of leukemia Z85.6 Nausea R11.0"
[2025-03-07] MEDS: PRAVASTATIN SOD 40 MG TAB PO SCH (10:05)
[2025-03-07] MEDS: OXYBUTYNIN CHLORIDE XL 5 MG TABCR PO SCH (10:06)
[2025-03-07] MEDS: CHOLECALCIFEROL 25 MCG (1000 UNITS) TAB PO SCH (10:06)
[2025-03-07] MEDS: VIBEGRON 75 MG TAB PO SCH (10:06)
--- NOTE | 2025-03-07 10:12 | Gastrointestinal Consultation ---
Date of Consultation March 07, 2025 Assessment & Plan (1) Colitis: (2) BRBPR (bright red blood per rectum): Plan Patient admitted with sudden onset rectal bleeding. Suspect that this was related to ischemic colitis. Rectal bleeding has been slowing down per nursing. - follow hgb/hct and transfuse as needed. - recommend supportive care. - she will need to be set up for an outpatient colonoscopy to further evaluate. -Further recommendations to come with Supervising GI provider. Please see co- signature comments. Supervising Physician Co-Signing Physician Notes I personally saw and examined the patient. I have reviewed the chart and agree with the documentation provided by the MOLDING MACHINE OPERATOR HELPER including discussion about the assessment, treatment and plan. Briefly, 69 year old female with a past medical history significant for CLL, HTN, HLD, GERD, T2DM, Vertigo, Fibromyalgia, Depression and Anxiety who presented to the ED on 03/06 with complaints of rectal bleeding. she tells me that this came on suddenly and was associated with some pain, consistent with how she felt on admission earlier this year. Imaging showing underdistention vs wall thickening of the left colon suggestive of nonspecific colitis. Her symptoms and findings suggest ischemic colitis over diverticular bleeding. She is doing better but her last colonoscopy was many years ago. I had asked her to update her colonoscopy in 6 to 8 weeks outpatient. This is her second presentation with ischemic colitis and some abnormal changes in the colon. I would suggest supportive care hydration clear liquid diet which we can advance slowly History of Present Illness Reason for Consultation: BRBPR Requesting Physician: Rose Marie FLETCHER Attending Physician: Parker Watson MD History of Present Illness Patient is a 69 year old female with a past medical history significant for CLL, HTN, HLD, GERD, T2DM, Vertigo, Fibromyalgia, Depression and Anxiety who presented to the ED on 03/06 with complaints of rectal bleeding. she tells me that this came on suddenly and was associated with some pain, consistent with how she felt on admission earlier this year. Imaging showing underdistention vs wall thickening of the left colon suggestive of nonspecific colitis. I spoke with nursing and since her admission, her rectal bleeding has been improving. Only a small smear noted with last bowel movement. patient tells me that she is starting to feel better and abdominal pain has resolved. the rest of the GI ros are unremarkable. 03/07/25 WBC 23.14, hgb 12.6, hct 38.6, plts 154, Na 141, K 3.5, BUN 20. Cr 0.68. LFTs wnl. CRP <0.50. 03/06/25 c diff negative. 03/06/25 CT A/P There is underdistention versus mild wall thickening of the left colon. There is no surrounding inflammation. Correlate clinically for evidence of a mild nonspecific colitis. Allergies Allergy/AdvReac Type Severity Reaction Status Date / Time tetracycline AdvReac Intermediate BLACK & Verified 08/03/24 17:38 BLUE IN JOINTS, LOST USE OF LEGS Home Medications Medication Instructions Recorded Confirmed Type cholecalciferol (vitamin D3) 25 25 mcg PO QAM 09/29/19 03/06/25 History mcg (1,000 unit) tablet (Vitamin D3) lisinopril 10 1 tab PO QAM 09/29/19 03/06/25 History mg-hydrochlorothiazide 12.5 mg tablet (Zestoretic) omeprazole 20 mg capsule,delayed 20 mg PO DAILY 09/29/19 03/06/25 History release diclofenac sodium 50 mg 50 mg PO BID 09/19/22 03/06/25 History tablet,delayed release duloxetine 30 mg capsule,delayed 30 mg PO DAILY 09/19/22 03/06/25 History release duloxetine 60 mg capsule,delayed 60 mg PO DAILY 09/19/22 03/06/25 History release pravastatin 80 mg tablet 80 mg PO DAILY 09/19/22 03/06/25 History diphenhydramine 25 1 tab PO HS PRN Sleep 08/03/24 03/06/25 History mg-acetaminophen 500 mg tablet (Tylenol PM Extra Strength) oxybutynin chloride 15 mg 15 mg PO DAILY 08/03/24 03/06/25 History tablet,extended release 24 hr meclizine 12.5 mg tablet 12.5 mg PO BID 10/13/24 03/06/25 History pregabalin 225 mg capsule 225 mg PO BID 10/13/24 03/06/25 History turmeric 200 mg PO DAILY 02/23/25 03/06/25 History vibegron 75 mg tablet (Gemtesa) 75 mg PO DAILY 02/23/25 03/06/25 History Patient History Medical History Chronic back pain Fibromyalgia Stable- chronic pain- generalized pain- no current flares GERD (gastroesophageal reflux disease) Well controlled and stable Diabetes mellitus, type 2 Diet controlled - glucose well controlled Leukemia CLL- under observation- gets checked every 6 months at [facility] in [place] > currently in remission Hyperlipidemia Sleep apnea no longer using cpap> too much congestion and kept waking patient up Surgical History History of esophagogastroduodenoscopy (EGD) History of colonoscopy History of lithotripsy History of partial hysterectomy Family History Grandmother (Paternal) Colon cancer Father Diabetes Sister Diabetes Brother Diabetes Social History Smoking Status: Never smoker Second Hand Exposure: No; Do You Dip or Chew Tobacco: No; Hx Alcohol Use: No Hx Substance Use: No Preferred Language: French Communication Ability: Effective Electronic Funds Transfer Coordinator Required: No Beliefs That Will Affect Care: None Current Living Situation: Family Feels Safe at Home: Yes Safety Concerns: Feels Safe At This Time Assistive Devices: Glasses Review of Systems Review of Systems: All systems reviewed & are unremarkable except as noted in HPI & below Physical Exam Constitutional: WD/WN, vitals as above Respiratory: normal respiratory effort, lungs clear to auscultation Cardiovascular: Rate/Rhythm: regular rate and regular rhythm Gastrointestinal (Abdomen): normal bowel sounds, soft, nontender, no hepatosplenomegaly Psychiatric: Orientation: alert and oriented x 3 Results & Data Vital Signs (Past 12 Hours) Vital Signs Temp Pulse Pulse Resp BP Pulse Ox O2 Del Method 03/07/25 07:57 87 03/07/25 07:32 98.4 F 78 18 122/59 L 93 Room Air 03/07/25 03:45 98.2 F 76 16 107/66 92 Room Air 03/06/25 22:30 Room Air 03/06/25 22:30 98.4 F 76 20 137/79 95 Room Air 03/06/25 22:27 79 Coding Level of Care Code 45911 INT INP/OBS CARE 2/55MIN Diagnoses Colitis K52.9 BRBPR (bright red blood per rectum) K62.5
[2025-03-07] MEDS ORDERED: cefTRIAXone SODIUM 2,000 MG/50 ML BAG IV SCH (14:00)
[2025-03-08 06:22] LABS: Hematocrit (blood only) 37.8 % (37.0-47.0); Hemoglobin 12.4 g/dL (12.0-16.0); Mean Corpuscular Hemoglobin 28.2 pg (25.0-34.0); Mean Corpuscular Volume 86.1 fL (80.0-100.0); Platelet Count 142 K/uL (130-400); RDW Standard Deviation 51.1 fL (36.4-46.3); Red Blood Count 4.39 M/uL (4.20-5.40); White Blood Count 21.96 K/ul (4.8-10.8)
[2025-03-08 06:52] LABS: Alanine Aminotransferase 10 U/L (7-52); Albumin Globulin Ratio 1.7 (0.9-2); Albumin Level 3.8 gm/dl (3.4-5.0); Alkaline Phosphatase 50 U/L (34-104); Anion Gap 8 (3-11); Bilirubin,Total 0.8 mg/dl (0.2-1.0); Blood Urea Nitrogen 10 mg/dl (6-23); Calcium 8.6 mg/dl (8.6-10.3); Carbon Dioxide 26 mmol/L (21-32); Chloride 107 mmol/L (98-107); Creatinine Clr Calc Pharmacy 80.5 ml/min; Globulin 2.2 gm/dl (2.5-4.0); Glucose 100 mg/dl (70-99(Fasting)); Potassium 3.6 mmol/L (3.5-5.1); Sodium 141 mmol/L (136-145); Total Protein 6.0 gm/dl (6.0-8.3)
[2025-03-08 07:42] LABS: Immature Granulocytes # (auto) 0.04 K/uL (0.01-0.20); Immature Granulocytes % (auto) 0.2 %; Smudge Cells Present
--- NOTE | 2025-03-08 12:24 | Gastroenterology Progress Note ---
Date of Service March 08, 2025 Assessment & Plan (1) Rectal bleeding: Plan: Suspicious for recurrent ischemic colitis this could have been aggravated by constipation. She does note passing a very large hard bowel movement since admission. Less symptoms since that time. Should have a colonoscopy. As her symptoms are improving or resolved this can be done as an outpatient. Hypotension and weakness check cortisol levels. May need blood pressure adjustm ent per primary service. Because of constipation since new bladder medication MiraLAX daily (2) Hypotension: (3) CLL (chronic lymphocytic leukemia): Admission and Anticipated Discharge Date Admission Date: March 06, 2025 Subjective Rectal bleeding Patient admitted seen by GI consult yesterday. My colleague felt this was probably ischemic colitis. She was diagnosed with a similar problem back in May [address]24. CT shows mild left-sided thickening. This is consistent with ischemic colitis. Sudden presentation beginning on could also be consistent with this. She had less pain this time without the vomiting that occurred with her episode back in May. She was to have an outpatient colonoscopy though this was never performed. States she was given Cologuard but is yet to perform this. Interesting she states she had a very large hard bowel movement that she passed since admission. Less symptoms since that bowel movement. Review CT scan however did not show an impaction on imaging. States she has noted decreased bowel frequency since being started on Gemtesa for her bladder. Patient is had no further bleeding since admission. Hemoglobin is stable. She has an elevated white count related to CLL. I note her blood pressure significant low today at 1 point down to 80 systolic range. This would aggravate ischemic colitis if present. If she has intermittent hypotension at home this would put her at risk of ischemic colitis in the watershed area which would show up as left-sided colitis on CT scan. Previous CTA did not show SMA or MONI stenosis. May need blood pressure medication adjustment. Advance diet as tolerated. Reviewed with patient importance of a follow-up colonoscopy at discharge. Could be performed Monday or Monday of next weeks if still an inpatient. MiraLAX daily. Review of Systems Review of Systems: Currently denies abdominal pain Physical Exam Physical Exam: Patient examined at bedside in no acute distress Does feel weak Abdomen benign Results & Data Results & Data Vital Signs (Past 12 Hours) Vital Signs Temp Pulse Pulse Resp BP Pulse Ox O2 Del Method 03/08/25 11:36 36.4 C L 74 18 120/106 H 92 Room Air 03/08/25 07:51 36.4 C L 65 19 107/51 L 93 Room Air 03/08/25 05:46 50 L 03/08/25 03:37 36.5 C 77 18 106/60 93 Room Air PG Care Time/CCT Total # of Minutes Spent Total Time Spent with Patient: Total time spent is greater than 50% in coordination of care (as documented) at patient's floor/unit and/or counseling patient: Coding Level of Care Code 92755 SUB INP/OBS CARE 04/20MIN Diagnoses Rectal bleeding K62.5 Hypotension I95.9 CLL (chronic lymphocytic leukemia) C91.10
--- NOTE | 2025-03-08 20:33 | Hospitalist Progress Note ---
"Date of Service March 08, 2025 Assessment & Plan (1) BRBPR (bright red blood per rectum): (2) Acute UTI (urinary tract infection): (3) History of leukemia: (4) Nausea: Plan Pt is a 69 F with a PMHx significant Hx CLL, HTN, HLD, GERD, T2DM, Vertigo, Fibromyalgia, Depression and Anxiety who presented to the ED c/o BRBPR. #Hematochezia | GI Bleed | Colitis - H&H stable 03/06; PT/INR wnl; CTAP 03/06 w/ underdistention vs mild wall thickening of L colon, no surrounding inflammation; 03/06 Stool Studies + C/ difficile neg -GI Consulted: Will consider colo mon/tu -Progress diet as able continue supportive care -Continuous HR + O2 Monitoring; VS Q1H -Trend H&H, recheck periodically -IVF NSS 0.99% 80mL/Hr -CBC, CMP, Procal, CRP in AM #UTI | Asymptomatic Bacteriuria - 03/06 UA w/ 2+Blood, +Nitrites, 2+LE, 4+ Bacteria; WBC 40.01 on admission; Pt remains asymptomatic -Urine Culture 03/06 +Ecoli -Blood Cx Pending d/t pt being asymptomatic, it is appropriate to withhold antibiotic treatment per treatment guidelines. #Hx CLL - Follows w/ oncology in [place]; Last appointment November 14, 2024; Not on active treatment; Peripheral Smear 03/07 is consistent w/ pt's known CLL lymphoproliferative disorder. Atypical lymphocytes indicative of a transformation to a large B cell lymphoma remain unseen -Pt admits to recently experiencing night sweats and loss of appetite, this should be monitored closely in the setting of WBC count of 40 #Nausea - Zofran 4mg IV prn #Overactive Bladder - No acute Concerns -Continue Gemtesa #HTN | HLD - No acute concerns -Continue Lisinopril-Hydrochlorothiazide -Continue Pravastatin #GERD - No acute Concerns -Hold Omeprazole -Protonix 40mg IV BID #Type 2 Diabetes Mellitus - 03/07 HbA1C 6.2 -Diet Controlled #Vertigo - -Continue Meclizine prn #Fibromyalgia - No acute concerns -Continue Pregabalin 225mg PO BID #Sleep Apnea - No longer uses CPAP -Monitor O2 Sats overnight #Depression | Anxiety - No acute concerns -Continue Duloxetine 30mg + 60mg PO daily VTE Proph: Deferred d/t BRBPR Dispo: Continue Med/Tele Admission and Anticipated Discharge Date Admission Date: March 06, 2025 Subjective Patient was lying in bed today in no acute distress. Patient states she is beginning to feel better than she has previous days she notes that her appetite has returned. Discussed slowly progressing her diet so that she is able to eat until she is able to eat regular meals patient was agreeable to this. Patient states that she would like to remain in the hospital to receive her colonoscopy to prevent future incidence of this happening. Patient otherwise denies cough, congestion, shortness of breath, chest pain, palpitations, abdominal pain or discomfort, nausea, vomiting, diarrhea. I was getting from a PCU Telemetry: Sinus 70s overnight with rare PACs Review of Systems Review of Systems: All systems reviewed & are unremarkable except as noted in Subjective Physical Exam Physical Exam: General: Pt is a 69 y/o Obese F in NAD in bed. VS: reviewed, unremarkable Skin: Warm and dry; no lesions or ulcerations Respiratory: CTA bilat, no adventitious sounds noted. Chest expansion is full and symmetrical Cardio: RRR no murmurs Abdomen: Round, normoactive BS x4, nontender to palpation MSK: FROM of extremities, no deformities Extremities: no edema Neuro: A&Ox4, cooperative Results & Data Results & Data Vital Signs (Past 12 Hours) Vital Signs Temp Pulse Pulse Resp BP Pulse Ox O2 Del Method 03/08/25 19:27 98.2 F 75 18 137/68 95 Room Air 03/08/25 15:00 98.2 F 64 19 116/71 93 Room Air 03/08/25 13:07 64 03/08/25 11:36 97.5 F L 74 18 120/106 H 92 Room Air Laboratory Results Reviewed: CBC, BMP, CRP, Procal PG Care Time/CCT Total # of Minutes Spent Total Time Spent with Patient: Total time spent is greater than 50% in coordination of care (as documented) at patient's floor/unit and/or counseling patient: Coding Level of Care Code 65962 SUB INP/OBS CARE 2/35MIN Diagnoses BRBPR (bright red blood per rectum) K62.5 Acute UTI (urinary tract infection) N39.0 History of leukemia Z85.6 Nausea R11.0"
[2025-03-09 03:07] VITALS: RESP 18
[2025-03-09 07:42] LABS: Hematocrit (blood only) 36.0 % (37.0-47.0); Hemoglobin 11.7 g/dL (12.0-16.0); Mean Corpuscular Hemoglobin 27.9 pg (25.0-34.0); Mean Corpuscular Volume 85.9 fL (80.0-100.0); Platelet Count 146 K/uL (130-400); RDW Standard Deviation 50.0 fL (36.4-46.3); Red Blood Count 4.19 M/uL (4.20-5.40); White Blood Count 19.88 K/ul (4.8-10.8)
[2025-03-09 08:07] LABS: Alanine Aminotransferase 12 U/L (7-52); Albumin Globulin Ratio 1.8 (0.9-2); Albumin Level 3.6 gm/dl (3.4-5.0); Alkaline Phosphatase 49 U/L (34-104); Anion Gap 6 (3-11); Bilirubin,Total 0.7 mg/dl (0.2-1.0); Blood Urea Nitrogen 7 mg/dl (6-23); Calcium 8.4 mg/dl (8.6-10.3); Carbon Dioxide 28 mmol/L (21-32); Chloride 108 mmol/L (98-107); Creatinine Clr Calc Pharmacy 78.0 ml/min; Globulin 2.0 gm/dl (2.5-4.0); Glucose 92 mg/dl (70-99(Fasting)); Potassium 3.4 mmol/L (3.5-5.1); Sodium 142 mmol/L (136-145); Total Protein 5.6 gm/dl (6.0-8.3)
[2025-03-09 08:15] LABS: Immature Granulocytes # (auto) 0.03 K/uL (0.01-0.20); Immature Granulocytes % (auto) 0.2 %; Polychromasia 1+; Smudge Cells Present
--- NOTE | 2025-03-09 09:05 | Hospitalist Progress Note ---
"Date of Service March 09, 2025 Assessment & Plan (1) BRBPR (bright red blood per rectum): (2) Acute UTI (urinary tract infection): (3) History of leukemia: (4) Nausea: Plan Pt is a 69 F with a PMHx significant Hx CLL, HTN, HLD, GERD, T2DM, Vertigo, Fibromyalgia, Depression and Anxiety who presented to the ED c/o BRBPR. #Hematochezia | GI Bleed | Colitis - H&H stable 03/06; PT/INR wnl; CTAP 03/06 w/ underdistention vs mild wall thickening of L colon, no surrounding inflammation; 03/06 Stool Studies + C/ difficile neg; WBC w/ significant downtrend from 40 day of admission to 19.88 03/09 -GI Consulted: Will consider colo mon/tu -Diet Clears -Continuous HR + O2 Monitoring; VS Q1H -Trend H&H, recheck periodically -IVF NSS 0.99% 80mL/Hr -CBC, CMP AM #UTI | Asymptomatic Bacteriuria - 03/06 UA w/ 2+Blood, +Nitrites, 2+LE, 4+ Bacteria; WBC 40.01 on admission; Pt remains asymptomatic -Urine Culture 03/06 +Ecoli -03/06 BCx - NGTD -Macrobid BID x5 days #Hx CLL - Follows w/ oncology in [place]; Last appointment November 14, 2024; Not on active treatment; Peripheral Smear 03/07 is consistent w/ pt's known CLL lymphoproliferative disorder. Atypical lymphocytes indicative of a transformation to a large B cell lymphoma remain unseen -Pt admits to recently experiencing night sweats and loss of appetite, this should be monitored closely in the setting of WBC count of 40 -WBC improving on admission #Nausea - Zofran 4mg IV prn #Overactive Bladder - No acute Concerns -Continue Gemtesa #HTN | HLD - No acute concerns -Continue Lisinopril-Hydrochlorothiazide -Continue Pravastatin #GERD - No acute Concerns -Hold Omeprazole -Protonix 40mg IV BID #Type 2 Diabetes Mellitus - 03/07 HbA1C 6.2 -Diet Controlled #Vertigo - -Continue Meclizine prn #Fibromyalgia - No acute concerns -Continue Pregabalin 225mg PO BID #Sleep Apnea - No longer uses CPAP -Monitor O2 Sats overnight #Depression | Anxiety - No acute concerns -Continue Duloxetine 30mg + 60mg PO daily VTE Proph: Deferred d/t BRBPR Dispo: Admission and Anticipated Discharge Date Admission Date: March 06, 2025 Subjective patient was laying in bed today in no acute distress. Patient states that her abdominal pain is much improved from before. Patient states that she is hopeful to get a colonoscopy, and that she is afraid the events like this will happen again in the future. Patient otherwise denies cough, congestion, sore throat, shortness of breath, chest pain, palpitations, abdominal pain, nausea, vomiting, diarrhea, and constipation. Telemetry: Sinus 50s and 70s overnight with rare PACs, sinus 70s in AM Review of Systems Review of Systems: All systems reviewed & are unremarkable except as noted in Subjective Physical Exam Physical Exam: General: Pt is a 69 y/o Obese F in NAD in bed. VS: reviewed, unremarkable Skin: Warm and dry; no lesions or ulcerations Respiratory: CTA bilat, no adventitious sounds noted. Chest expansion is full and symmetrical Cardio: RRR no murmurs Abdomen: Round, normoactive BS x4, nontender to palpation MSK: FROM of extremities, no deformities Extremities: no edema Neuro: A&Ox4, cooperative Results & Data Results & Data Vital Signs (Past 12 Hours) Vital Signs Temp Pulse Pulse Resp BP Pulse Ox O2 Del Method 03/09/25 08:01 97.9 F 56 L 18 105/64 95 Room Air 03/09/25 03:06 98.4 F 70 18 136/69 94 Room Air 03/08/25 23:42 98.4 F 75 16 130/67 95 Room Air 03/08/25 22:07 65 Laboratory Results reviewed: CBC, CMP, CRP, procalcitonin, a.m. cortisol PG Care Time/CCT Total # of Minutes Spent Total Time Spent with Patient: Total time spent is greater than 50% in coordination of care (as documented) at patient's floor/unit and/or counseling patient: Coding Level of Care Code 42164 SUB INP/OBS CARE 2/35MIN Diagnoses BRBPR (bright red blood per rectum) K62.5 Acute UTI (urinary tract infection) N39.0 History of leukemia Z85.6 Nausea R11.0"
--- NOTE | 2025-03-09 12:28 | Communication Note ---
Date of Service: March 09, 2025 Patient not in room at time of visit. Hemoglobin stable. Can be discharged on MiraLAX. Recommend outpatient colonoscopy. Patient should be given the number [facility]. Return if further bleeding. Diagnosis ischemic colitis. Constipation.
[2025-03-09 15:58] VITALS: BP 131/72; PULSE 64; TEMP 98.2; O2SAT 94
--- NOTE | 2025-03-09 16:07 | Discharge Summary ---
"Discharge Summary Date of Service March 09, 2025 Principal Dx & Hospital Course #1 = Principal Diagnosis (1) BRBPR (bright red blood per rectum): (2) Acute UTI (urinary tract infection): (3) History of leukemia: (4) Nausea: Plan Pt is a 69 F with a PMHx significant Hx CLL, HTN, HLD, GERD, T2DM, Vertigo, Fibromyalgia, Depression and Anxiety who presented to the ED c/o BRBPR. #Hematochezia | GI Bleed | Colitis - H&H stable 03/06; PT/INR wnl; CTAP 03/06 w/ underdistention vs mild wall thickening of L colon, no surrounding inflammation; 03/06 Stool Studies + C/ difficile neg; WBC w/ significant downtrend from 40 day of admission to 19.88 03/09 -GI Consulted: recommends outpatient follow-up for colonoscopy -Return to regular diet #UTI | Asymptomatic Bacteriuria - 03/06 UA w/ 2+Blood, +Nitrites, 2+LE, 4+ Bacteria; WBC 40.01 on admission; Pt remains asymptomatic; Urine Culture 03/06 +Ecoli; 03/06 BCx - NGTD -Macrobid BID x5 days #Hx CLL - Follows w/ oncology in [place]; Last appointment November 14, 2024; Not on active treatment; Peripheral Smear 03/07 is consistent w/ pt's known CLL lymphoproliferative disorder. Atypical lymphocytes indicative of a transformation to a large B cell lymphoma remain unseen, continue outpatient follow-up #Nausea - Zofran 4mg IV prn #Overactive Bladder - No acute Concerns, Continue Gemtesa #HTN | HLD - No acute concerns, continue lisinoprilhydrochlorothiazide, pravastatin #GERD - No acute Concerns, continue omeprazole #Type 2 Diabetes Mellitus - 03/07 HbA1C 6.2, continue to control with diet #Vertigo - No acute concerns, Continue Meclizine prn #Fibromyalgia - No acute concerns , Continue Pregabalin 225mg PO BID #Sleep Apnea - No longer uses CPAP #Depression | Anxiety - No acute concerns, Continue Duloxetine 30mg + 60mg PO daily Dispo: Home, self-care Admission HPI Per Admitting Provider Pt is a 69 F with a PMHx significant Hx CLL, HTN, HLD, GERD, T2DM, Vertigo, Fibromyalgia, Depression and Anxiety who presented to the ED c/o BRBPR. Pt states that this AM around 0100 she went to the bathroom to urinate and noticed blood. Pt states that she then wiped her rectum she saw davin blood on the toilet tissue. Pt states that she noticed that the bleeding was initially only present when she went to the bathroom, but by early afternoon it had progressed to staining her depends. Pt states at this point she called her daughter and ur gent care who both recommended that she comes into the ED. Pt notes that in the days leading up to the BRBPR (3 days [facility]), that she began to feel more fatigued and began to experience loss of appetite. She notes that today 03/06, that she was so nauseous that she was unable to take any of her morning medications. She additionally recalls an episode of night sweats that resulted in her sheets becoming damp and her needed to change her night-gown. She admits to diarrhea (isolated to day of admission), nausea, difficulty sleeping, loss of appetite, and tinismus. Pt denies changes in weight, H/A, changes in hearing or vision, congestion, sore throat, cough, palpitations, orthopnea, edema, vomiting, constipation, frequency, urgency, dysuria, and gross hematuria.Pt denies any previous episodes similar in nature. Pt states her most recent Colonoscopy was >5 years ago and she recall that she was encouraged to follow-up within 5 years. She notes that she has a Cologuard at home that she has not yet done. Pt was transported to the ED via her . While in the ED, the patient received a CBC that revealed WBC 40, UA that was likely infectious, and a CTAP that demonstrated inderdistention vs mild wall thickening of Lt colon without any surrounding inflammation. Pt was diagnosed with BRBPR, UTI, and possible colitis. Pt is being admitted for further evaluation and care. Discharge Exam General: Pt is a 69 y/o Obese F in NAD in bed. VS: reviewed, unremarkable Skin: Warm and dry; no lesions or ulcerations Respiratory: CTA bilat, no adventitious sounds noted. Chest expansion is full and symmetrical Cardio: RRR no murmurs Abdomen: Round, normoactive BS x4, nontender to palpation MSK: FROM of extremities, no deformities Extremities: no edema Neuro: A&Ox4, cooperative Discharge Plan Discharge Items Patient Disposition: Home - Self-Care Reason For Visit: RECTAL BLEED SINCE AM, NAUSEA, ABD PAIN LAST SUSSY Discharge Diagnosis: Ischemic Colitis Condition on Discharge: Fair Activity: Resume your previous activity Non-emergency contact: Primary Care Provider Call non-emergency contact if: you have any medication questions, your symptoms worsen and your pain is not controlled Follow-up/Referrals: Sudeep Read PA-C [Primary Care Provider] - (Follow-up within one week of discharge) Diet: Heart Healthy Addtl Attending Provider Instructions: Hospital Course: You were admitted to the hospital after experiencing rectal bleeding. While you were in the hospital you recieved a CT that demonstrated some thickening of your colon, consistent with ischemic colitis. Stool studies were preformed and were negative for infection. You were admitted to the hospital and placed on bowel rest and given a diet consisting of clear liquids which was slowly progressed. GI was consulted and recommend that you follow up with Melody [facility]ST[facility] for outpatient colonoscopy, their information will be provided to you below. Additionally while you were admitted to the hospital, it was discovered that you had a UTI, a prescription will be sent to you pharmacy. Discharge instruction: -Please follow-up with Melody THURSTON, the information is listed here Address: [facility] [address], [place] [address] -Please follow-up with your Family doctor within one week of discharge -Please continue to drink water, its important that you stay hydrated -A prescription of Macrobid will be sent to your pharmacy, please take twice daily for 5 days Medications: Your medication list has been reviewed and reconciled upon discharge to ensure accuracy and continuity of care. An updated list of all your medications is included with your hospital discharge paperwork. Please review this list closely, and make note of any changes. We sent a new medication called Macrobid to your pharmacy. Take 2 times a day for the next 5 days. Start this tonight. This is an antibiotic to help with your UTI . Take your medications as instructed; do not skip a dose of your medicines. Make sure all of your doctors know every medicine you are taking (including tslz-mpv-trklewy medicines, vitamins, and supplements). Call your primary care provider before taking any new medicines (including over- the-counter medicines, vitamins, and supplements), because some of these may interact with your current medications, or may make your symptoms worse. Tell your primary care provider if you cannot afford your medications. Activity: You can do normal everyday activities as your body allows. Take rest breaks if you feel tired. Do not overexert. Stop activity if you have pain, shortness of breath or feel dizzy. Follow-up appointments: Make an appointment with your primary care physician within one week of discharge. A copy of this summary will be sent to them. Every time you see your primary care physician, or any other doctor, bring your medication list, and a list of questions. CONTACT YOUR PRIMARY CARE PROVIDER if you experience any of the following: Shortness of breath or difficulty breathing Fevers or chills Feeling tired with normal activity or experiencing dizziness or fainting Difficulty following your treatment plan, or difficulty taking medications CALL 911 OR GO TO THE EMERGENCY DEPARTMENT if you experience any of the following: Severe abdominal pain or nausea/vomiting Severe chest pain, or chest pain that radiates (moves) to your jaw or arm Sudden, severe shortness of breath or difficulty breathing Thank you for allowing us to participate in your care. Pending Studies at Discharge: No Stand-Alone Forms: My [facility], Smoking Cessation Medications and DC Order Prescriptions: Continued omeprazole 20 mg capsule,delayed release(DR/EC) 20 mg PO DAILY lisinopril-hydrochlorothiazide [Zestoretic] 10-12.5 mg tablet 1 tab PO QAM Hold Instructions: Resume on 08/09/24. cholecalciferol (vitamin D3) [Vitamin D3] 25 mcg (1,000 unit) Tablet 25 mcg PO QAM pravastatin 80 mg tablet 80 mg PO DAILY diclofenac sodium 50 mg tablet,delayed release (DR/EC) 50 mg PO BID duloxetine 30 mg capsule,delayed release(DR/EC) 30 mg PO DAILY Rx Instructions: TOTAL DOSE 90 MG--TAKES WITH 60 MG CAP. duloxetine 60 mg capsule,delayed release(DR/EC) 60 mg PO DAILY Rx Instructions: TOTAL DOSE 90 MG--TAKES WITH 30 MG CAP. oxybutynin chloride 15 mg tablet extended release 24hr 15 mg PO DAILY diphenhydramine-acetaminophen [Tylenol PM Extra Strength] 25-500 mg Tablet 1 tab PO HS PRN (Reason: Sleep) meclizine 12.5 mg tablet 12.5 mg PO BID pregabalin 225 mg capsule 225 mg PO BID Gemtesa 75 mg tablet 75 mg PO DAILY turmeric 200 mg PO DAILY Discharge Orders: Discharge Order (Routine); Ordered 03/09/25 Ordered By: oRse Marie Amado/Other Patient Handouts: Prediabetes, 5 Steps for Eating Healthier Admission Data Admit Date/Time: 03/06/25 17:07 Attending Provider: Parker Watson Admit Provider: Parker Watson Primary Care Provider: Sudeep Read Other Providers: Parker Watson; Clarence Silvestre; Chevy Diaz; Jackie Mendoza; Bindu Lerma; Bev Larios; Babs Burton; Justin Cruz; Marycarmen Lombardo; Yue Banuelos; Lou Shepard; Carmenza Noland; Rose Marie Chung; Makenzie Chu; Jody Paz; Anton Nathan; Portillo Beckett; Cinthia Woo; Katherine Rodriguez Jr; Donte Fernandez.; Noam Bell; Kvng Cormier; Wanda Panchal; Nicholas Interiano I; Aysha Reyes; Dru Jung; Leo Walker; Elder Muñoz.; Sherif Garnica; Rosa Herron Other Interventions: Discharge Summary Assessment (RN) Last Done: 03/09/25 16:21 Hospital Stay Data Consultations 03/06/25 15:22 ED Decision to Admit Stat 03/06/25 20:52 Consult Gastroenterology Routine Diagnostic Imagining Performed 03/06/25 13:14 CT Abd and Pelvis [CT abd pelvis IV con only] Stat Discharge Instructions Given to Patient (Per Discharging Provider) Hospital Course: You were admitted to the hospital after experiencing rectal bleeding. While you were in the hospital you recieved a CT that demonstrated some thickening of your colon, consistent with ischemic colitis. Stool studies were preformed and were negative for infection. You were admitted to the hospital and placed on bowel rest and given a diet consisting of clear liquids which was slowly progressed. GI was consulted and recommend that you follow up with Melody THURSTON for outpatient colonoscopy, their information will be provided to you below. Additionally while you were admitted to the hospital, it was discovered that you had a UTI, a prescription will be sent to you pharmacy. Discharge instruction: -Please follow-up with Melody THURSTON, the information is listed here Address: [address], [place] [address] -Please follow-up with your Family doctor within one week of discharge -Please continue to drink water, its important that you stay hydrated -A prescription of Macrobid will be sent to your pharmacy, please take twice daily for 5 days Medications: Your medication list has been reviewed and reconciled upon discharge to ensure accuracy and continuity of care. An updated list of all your medications is included with your hospital discharge paperwork. Please review this list closely, and make note of any changes. We sent a new medication called Macrobid to your pharmacy. Take 2 times a day for the next 5 days. Start this tonight. This is an antibiotic to help with your UTI . Take your medications as instructed; do not skip a dose of your medicines. Make sure all of your doctors know every medicine you are taking (including slgn-lfn-bbhsmfj medicines, vitamins, and supplements). Call your primary care provider before taking any new medicines (including over- the-counter medicines, vitamins, and supplements), because some of these may interact with your current medications, or may make your symptoms worse. Tell your primary care provider if you cannot afford your medications. Activity: You can do normal everyday activities as your body allows. Take rest breaks if you feel tired. Do not overexert. Stop activity if you have pain, shortness of breath or feel dizzy. Follow-up appointments: Make an appointment with your primary care physician within one week of discharge. A copy of this summary will be sent to them. Every time you see your primary care physician, or any other doctor, bring your medication list, and a list of questions. CONTACT YOUR PRIMARY CARE PROVIDER if you experience any of the following: Shortness of breath or difficulty breathing Fevers or chills Feeling tired with normal activity or experiencing dizziness or fainting Difficulty following your treatment plan, or difficulty taking medications CALL 911 OR GO TO THE EMERGENCY DEPARTMENT if you experience any of the following: Severe abdominal pain or nausea/vomiting Severe chest pain, or chest pain that radiates (moves) to your jaw or arm Sudden, severe shortness of breath or difficulty breathing Thank you for allowing us to participate in your care. Total Time Total Time Spent Total Time Spent (In Minutes): Time spent day of discharge 45 minutes including direct patient care, medication reconciliation, documentation, review of labs and images, and coordination of care. Coding Level of Care Code 64277 INP/OBS DISCH >30 MIN Diagnoses BRBPR (bright red blood per rectum) K62.5 Acute UTI (urinary tract infection) N39.0 History of leukemia Z85.6 Nausea R11.0"
[2025-03-09] MEDS ORDERED: NITROFURANTOIN MONOHYDRATE 100 MG CAP PO SCH (21:00)
== END 2025-03-09 17:44 | disposition home or self-care (01) | DRG 378 ==
LOC: ED 12:35 → EDINP 17:07 → INTOOBSV 17:07 → 2W 20:52